=== PATIENT | male | born 1945 | race Caucasian/White ===

== ENCOUNTER → 2019-09-24 09:16 | Outpatient (BNVA) | payer OTHER, SELFPAY | PROVIDERS: Family Provider Internal Medicine; PCP Internal Medicine; Visit Provider Nurse Practitioner | DX: M54.5 Low back pain (principal); Z79.891 Long term (current) use of opiate analgesic | CPT/HCPCS: 99213 ==

== ENCOUNTER → 2019-11-27 09:37 | Outpatient (BNVA) | payer OTHER, SELFPAY | PROVIDERS: Family Provider Internal Medicine; PCP Internal Medicine; Visit Provider Anesthesiology | DX: G89.29 Other chronic pain (principal); M47.26 Other spondylosis with radiculopathy, lumbar region; M96.1 Postlaminectomy syndrome, not elsewhere classified; Z79.891 Long term (current) use of opiate analgesic | CPT/HCPCS: 99213; 99214 ==

== ENCOUNTER → 2020-03-24 09:35 | Outpatient (BNVA) | payer OTHER, SELFPAY | PROVIDERS: Family Provider Internal Medicine; PCP Family Medicine; Visit Provider Nurse Practitioner | DX: G89.29 Other chronic pain (principal); M54.41 Lumbago with sciatica, right side; M54.42 Lumbago with sciatica, left side; M48.062 Spinal stenosis, lumbar region with neurogenic claudication; M54.16 Radiculopathy, lumbar region; M96.1 Postlaminectomy syndrome, not elsewhere classified; Z79.891 Long term (current) use of opiate analgesic | CPT/HCPCS: 99213 ==

== ENCOUNTER 2020-04-21 14:00 | Outpatient (CLI) | payer OTHER, SELFPAY ==
--- NOTE | 2020-04-21 15:00 | USCV_ITS ---
Finn Leigh Age: 74 Gender: M : 1945 Exam Date: 04/21/2020 14:31 Ordering Phys: Ade Putnam MD ([email or web address]) Technologist: Georgette Genao [place] [facility] [place]: LV FUNCTION BP: 130 / 70 HR: 73 Rhythm: Sinus Technical Quality: Fair MEASUREMENTS (Male / Female) Normal Values 2D ECHO LV Diastolic Diameter PLAX 4.0 cm 4.2 - 5.9 / 3.9 - 5.3 cm LV Systolic Diameter PLAX 3.0 cm LV Chamber Size 3.5 cm IVS Diastolic Thickness 1.4 cm 0.6 - 1.0 / 0.6 - 0.9 cm IVS Systolic Thickness 1.4 cm LVPW Diastolic Thickness 1.6 cm 0.6 - 1.0 / 0.6 - 0.9 cm LVPW Systolic Thickness 1.8 cm RV Chamber Size 2.8 cm LVOT Diameter 2.1 cm LV Ejection Fraction 2D Teich 48.7 % LV Ejection Fraction MOD 2C 49.5 % LV Ejection Fraction 2C AL 51.8 % LA Diameter 4.2 cm LA Width 3.7 cm LA Height 3.9 cm RA Width 3.8 cm RA Height 3.7 cm Aorta at Sinotubular Diameter 3.3 cm M-MODE LV Diastolic Diameter MM 4.5 cm 4.2 - 5.9 / 3.9 - 5.3 cm LV Systolic Diameter MM 2.9 cm LV Ejection Fraction MM Teich 64.2 % IVS Diastolic Thickness MM 1.3 cm 0.6 - 1.0 / 0.6 - 0.9 cm IVS Systolic Thickness MM 1.1 cm LVPW Diastolic Thickness MM 1.4 cm 0.6 - 1.0 / 0.6 - 0.9 cm LVPW Systolic Thickness MM 1.8 cm RV Diastolic Diameter MM 1.9 cm Aortic Annulus Diameter 4.0 cm LA Ao Ratio MM 1.0 MV E Point Septal Separation 0.8 cm FINDINGS Left Ventricle Normal left ventricular size, systolic function and wall thickness, with no regional wall motion abnormalities. Left ventricular ejection fraction is estimated at 55-60%. Right Ventricle Normal right ventricular size and systolic function. Right Atrium Normal right atrial size. Left Atrium Normal left atrial size. Mitral Valve Mild mitral annular calcification. Mildly thickened mitral valve. No mitral valve stenosis. Trace mitral valve regurgitation. Aortic Valve Structurally normal trileaflet aortic valve. Tricuspid Valve Structurally normal tricuspid valve. Pulmonic Valve Structurally normal pulmonic valve. Pericardium No pericardial effusion. Aorta Normal size aortic root and proximal ascending aorta. CONCLUSIONS 1. This is a limited echocardiogram. 2. Normal left ventricular size, systolic function and wall thickness, with no regional wall motion abnormalities. Left ventricular ejection fraction is estimated at 55-60%. 3. When compared to previous echocardiogram dated 02/06/2019, left ventricular systolic function has improved. Ade Putnam MD (Electronically Signed) Final Date: 25 April 2020 15:15 S
== END 2020-04-21 14:01 | disposition home or self-care (01) ==
LOC: US 14:01
PROVIDERS: PCP Family Medicine; Visit Provider Internal Medicine Cardiovascular Disease
DX: I50.9 Heart failure, unspecified (principal)
CPT/HCPCS: 93308

== ENCOUNTER → 2020-05-27 09:31 | Outpatient (BNVA) | payer OTHER, SELFPAY | PROVIDERS: Family Provider Internal Medicine; PCP Family Medicine; Visit Provider Anesthesiology | DX: G89.29 Other chronic pain (principal); M47.26 Other spondylosis with radiculopathy, lumbar region; M96.1 Postlaminectomy syndrome, not elsewhere classified; Z79.891 Long term (current) use of opiate analgesic | CPT/HCPCS: 99214 ==

== ENCOUNTER → 2020-07-26 09:53 | Outpatient (BNVA) | payer OTHER, SELFPAY | PROVIDERS: Family Provider Internal Medicine; PCP Family Medicine; Visit Provider Anesthesiology | DX: G89.29 Other chronic pain (principal); M48.062 Spinal stenosis, lumbar region with neurogenic claudication; M47.26 Other spondylosis with radiculopathy, lumbar region; M96.1 Postlaminectomy syndrome, not elsewhere classified; Z79.891 Long term (current) use of opiate analgesic | CPT/HCPCS: 99212; 99214 ==

== ENCOUNTER 2020-08-03 06:00 | Outpatient (RCR) | payer OTHER, SELFPAY | END 2020-08-22 23:59 | disposition home or self-care (01) | LOC: GPT 06:00 | PROVIDERS: PCP Family Medicine; Referring Provider Family Medicine; Visit Provider Family Medicine | DX: M25.512 Pain in left shoulder (principal) | CPT/HCPCS: 97110; 97140; 97162; 97530 ==

== ENCOUNTER 2020-08-23 06:00 | Outpatient (RCR) | payer OTHER, SELFPAY | END 2020-09-22 23:59 | disposition home or self-care (01) | LOC: GPT 06:00 | PROVIDERS: PCP Family Medicine; Referring Provider Family Medicine; Visit Provider Family Medicine | DX: M25.512 Pain in left shoulder (principal) | CPT/HCPCS: 97110; 97140; 97530 ==

== ENCOUNTER → 2020-10-07 08:28 | Outpatient (BNVA) | payer OTHER, SELFPAY | PROVIDERS: PCP Family Medicine; Visit Provider Nurse Practitioner | DX: G89.29 Other chronic pain (principal); M48.062 Spinal stenosis, lumbar region with neurogenic claudication; M47.26 Other spondylosis with radiculopathy, lumbar region; M96.1 Postlaminectomy syndrome, not elsewhere classified; Z79.891 Long term (current) use of opiate analgesic | CPT/HCPCS: 99213 ==

== ENCOUNTER → 2020-12-06 09:39 | Outpatient (BNVA) | payer OTHER, SELFPAY | PROVIDERS: PCP Family Medicine; Visit Provider Nurse Practitioner | DX: G89.29 Other chronic pain (principal); M96.1 Postlaminectomy syndrome, not elsewhere classified; M48.062 Spinal stenosis, lumbar region with neurogenic claudication; M47.26 Other spondylosis with radiculopathy, lumbar region; Z79.891 Long term (current) use of opiate analgesic | CPT/HCPCS: 99213 ==

== ENCOUNTER → 2020-12-26 09:45 | Outpatient (BNVA) | payer OTHER, SELFPAY | PROVIDERS: PCP Family Medicine; Referring Provider Dermatology; Visit Provider Podiatrist Foot & Ankle Surgery | DX: M79.673 Pain in unspecified foot (principal) | CPT/HCPCS: 73630 ==

== ENCOUNTER → 2021-02-10 09:57 | Outpatient (BNVA) | payer OTHER, SELFPAY | PROVIDERS: PCP Family Medicine; Visit Provider Anesthesiology | DX: G89.29 Other chronic pain (principal); M48.062 Spinal stenosis, lumbar region with neurogenic claudication; M47.26 Other spondylosis with radiculopathy, lumbar region; M96.1 Postlaminectomy syndrome, not elsewhere classified; Z87.891 Personal history of nicotine dependence; Z79.891 Long term (current) use of opiate analgesic | CPT/HCPCS: 99213 ==

== ENCOUNTER → 2021-04-06 10:07 | Outpatient (BNVA) | payer OTHER, SELFPAY | PROVIDERS: PCP Family Medicine; Visit Provider Anesthesiology | DX: G89.29 Other chronic pain (principal); M48.062 Spinal stenosis, lumbar region with neurogenic claudication; M47.26 Other spondylosis with radiculopathy, lumbar region; M96.1 Postlaminectomy syndrome, not elsewhere classified; Z79.891 Long term (current) use of opiate analgesic; Z87.891 Personal history of nicotine dependence | CPT/HCPCS: 99213 ==

== ENCOUNTER → 2021-06-16 09:38 | Outpatient (BNVA) | payer OTHER, SELFPAY | PROVIDERS: PCP Family Medicine; Visit Provider Anesthesiology | DX: G89.29 Other chronic pain (principal); M96.1 Postlaminectomy syndrome, not elsewhere classified; M48.062 Spinal stenosis, lumbar region with neurogenic claudication; M54.16 Radiculopathy, lumbar region; Z79.891 Long term (current) use of opiate analgesic | CPT/HCPCS: 99213 ==

== ENCOUNTER → 2021-08-10 09:51 | Outpatient (BNVA) | payer OTHER, SELFPAY | PROVIDERS: PCP Family Medicine; Visit Provider Anesthesiology | DX: G89.29 Other chronic pain (principal); M96.1 Postlaminectomy syndrome, not elsewhere classified; M48.062 Spinal stenosis, lumbar region with neurogenic claudication; M47.26 Other spondylosis with radiculopathy, lumbar region; Z79.891 Long term (current) use of opiate analgesic; Z87.891 Personal history of nicotine dependence | CPT/HCPCS: 99213 ==

== ENCOUNTER → 2021-09-05 15:42 | Outpatient (BNVA) | payer OTHER, SELFPAY | PROVIDERS: PCP Family Medicine; Referring Provider Family Medicine; Visit Provider Orthopaedic Surgery | DX: M47.26 Other spondylosis with radiculopathy, lumbar region (principal); M48.062 Spinal stenosis, lumbar region with neurogenic claudication | CPT/HCPCS: 72110 ==

== ENCOUNTER → 2021-10-06 09:23 | Outpatient (BNVA) | payer OTHER, SELFPAY | PROVIDERS: PCP Family Medicine; Visit Provider Anesthesiology | DX: G89.29 Other chronic pain (principal); M96.1 Postlaminectomy syndrome, not elsewhere classified; M48.062 Spinal stenosis, lumbar region with neurogenic claudication; M47.26 Other spondylosis with radiculopathy, lumbar region; Z79.891 Long term (current) use of opiate analgesic; Z87.891 Personal history of nicotine dependence | CPT/HCPCS: 99213 ==

== ENCOUNTER 2021-12-11 07:47 | Outpatient (CLI) | payer OTHER, SELFPAY ==
--- NOTE | 2021-12-11 07:54 | MR_ITS ---
WS: [id number] MRI LUMBAR SPINE NONCONTRAST HISTORY: M48.062 - Spinal stenosis, lumbar region with bilateral leg pain. COMPARISON: Radiograph 09/05/2021 TECHNIQUE: Sagittal and axial multisequence imaging is submitted. Central shallow disc protrusion at C6-7. Mild anterior wedging of T6. Straightening of the normal lumbar lordosis. L4 anterolisthesis by 2 mm. Prior vertebroplasty at L1. 50% loss of height is stable since 09/05/2021. Disc spaces are narrowed and desiccated throughout. There is a very small amount of marrow edema sada g the superior T12 vertebral body and inferior endplate of T11. No acute fracture in the lumbar spine . Conus terminates normally at L1. T12-L1: Mild osteophytic ridging and disc bulging. Mild facet arthritis. No significant stenosis. L1-L2: Moderate annular disc bulging and osteophytic ridging. Moderate facet arthritis. Combination o f factors contributing to mild central, bilateral subarticular recess and foraminal stenosis. Small d isc protrusion in the LEFT foramen. There is slight contact on both exiting L1 nerve roots by the dis c and osteophyte disease. L2-L3: Marked annular disc bulging asymmetric to the LEFT. Facet joint arthritis and osteophytes with effacement of CSF centrally. Moderate to severe central with bilateral subarticular recess and jaycob inal stenosis. Greater stenosis on the LEFT. There is an additional LEFT foraminal disc protrusion wh ich is broad-based contributing to the stenosis. L3-L4: Diffuse marked annular disc bulging and osteophytic ridging with facet arthritis. High-grade c entral and bilateral subarticular recess stenosis. There is also severe bilateral foraminal stenosis greatest on the RIGHT. There may be disc protrusions and foraminal also. L4-L5: Marked annular disc bulging and osteophytic ridging. Osteophyte and disc encroachment upon the thecal sac. Large posterior laminectomy defect. High-grade central and bilateral subarticular recess and moderate foraminal stenosis. L5-S1: Mild annular disc bulging. Large posterior laminectomy defect. Mild encroachment upon the S1 n erve roots bilaterally. Mild disc contact on the RIGHT exiting L5 nerve root. Bilateral renal cysts. One of the localizers there is an area of decreased signal inseparable from th e superior pole of the RIGHT kidney. This needs to be further evaluated to exclude renal mass. Additi onal atherosclerotic changes within the abdominal aorta. MR/MR lumbar spine wo con* [id number] IMPRESSION: 1. Multilevel central, subarticular and foraminal stenosis due to combination of factors. 2. Moderate to severe central, bilateral subarticular recess and foraminal denny nosis at L2-3, greater stenosis on the LEFT. 3. High-grade central, bilateral subarticular recess stenosis and severe jaycob inal stenosis greatest on the RIGHT at L3-4. 4. High-grade central, bilateral subarticular recess and moderate foraminal st enosis at L4-5. 5. Mild encroachment upon the S1 nerve roots bilaterally due to disc and facet disease. 6. Large laminectomy defects at L4-5 and L5-S1. 7. Mild central, bilateral subarticular recess and foraminal stenosis at L1-2. 8. Recommend renal ultrasound. On one of the localizer images there is a low s ignal mass inseparable from the superior pole RIGHT kidney. Renal neoplasm need s to be excluded. There was a large cyst in this location 2018. This is probabl y a a cyst but should be confirmed by ultrasound evaluation.
== END 2021-12-11 07:48 | disposition home or self-care (01) ==
LOC: RAD 07:51
PROVIDERS: PCP Family Medicine; Visit Provider Orthopaedic Surgery
DX: M48.062 Spinal stenosis, lumbar region with neurogenic claudication (principal); M96.1 Postlaminectomy syndrome, not elsewhere classified; N28.89 Other specified disorders of kidney and ureter
CPT/HCPCS: 72148

== ENCOUNTER → 2022-01-17 | Day surgery (SDC) | payer OTHER, SELFPAY ==
[2022-01-17 09:49] VITALS: BMI 34.5
--- NOTE | 2022-01-17 09:55 | ECG_ITS ---
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 Measurements Intervals [place] Rate: 67 P: 59 HI: 191 QRS: 53 QRSD: 149 T: 55 QT: 413 QTc: 437 Interpretive Statements SINUS RHYTHM RIGHT BUNDLE BRANCH BLOCK [120+ ms QRS DURATION, UPRIGHT V1, 40+ ms S IN I/aVL/V4/V5/V6] Compared to ECG 02/06/2019 11:39:19 Right bundle-branch block now present Myocardial infarct finding no longer present Electronically Signed On 01-17-2022 17:04:08 CDT by Mark Negron M.D. [id number]
--- NOTE | 2022-01-17 14:23 | SUR.PREOP ---
0930 pt here for in person pre-op and not on our schedule for appt today,missed his appt on Saturday01/15/22 pt on eliquis and stated he sees dr rubio for this,dr rubio's office called and stated that pt not seen in almost 2 years, he has missed several appt or cancelled them and does not feel comfortable telling pt when to stop his eliquis prior to surgery on SaturdayJanuary 22. I spoke with Dr Beckford (anesthesiologist)about this pt and wants pt to see Dr Rubio prior to having surgery,informed pt of this and verbalized understanding.
== END ==
PROVIDERS: PCP Family Medicine; Visit Provider Orthopaedic Surgery
DX: Z01.818 Encounter for other preprocedural examination (principal)
CPT/HCPCS: 93005

== ENCOUNTER → 2022-01-24 10:09 | Outpatient (BNVA) | payer OTHER, SELFPAY | PROVIDERS: PCP Family Medicine; Visit Provider Internal Medicine Cardiovascular Disease | DX: Z01.810 Encounter for preprocedural cardiovascular examination (principal); I50.22 Chronic systolic (congestive) heart failure; I45.10 Unspecified right bundle-branch block; I82.409 Acute embolism and thrombosis of unspecified deep veins of unspecified lower extremity; Z87.891 Personal history of nicotine dependence | CPT/HCPCS: 99214 ==

== ENCOUNTER 2022-03-19 06:25 | Day surgery (SDC) | payer OTHER, SELFPAY ==
[2022-03-13 13:43] LABS: Basophils # 0.1 10^3/uL (0.0-0.1); Basophils % 0.9 %; Eosinophils # 0.2 10^3/uL (0.0-0.8); Eosinophils % 1.9 %; Hematocrit 47.8 % (42.0-52.0); Hemoglobin 16.7 g/dL (11.7-16.6); Lymphocytes # 1.5 10^3/uL (0.8-4.8); Mean Corpuscular HGB Conc 34.9 g/dL (30.0-36.0); Mean Corpuscular Hemoglobin 31.7 pg (28.0-34.0); Mean Corpuscular Volume 90.7 fl (80-94); Mean Platelet Volume 10.7 fL (7.4-10.4); Monocytes # 0.6 10^3/uL (0.2-0.9); Monocytes % 6.2 %; Neutrophils # 6.79 10^3/uL (1.8-7.7); Neutrophils % 74.6 %; Nucleated Red Blood Cells % 0 %; Platelet Count 327 10^3/cmm (130-400); Red Blood Count 5.27 10^6/uL (4.1-5.3); White Blood Count 9.1 10^3/uL (4.0-10.0)
--- NOTE | 2022-03-13 14:53 | P.ANESASSM_ITS ---
Pre-Anesthetic Assessment Height/Weight: Height 1.8 m Preop Diagnosis: Failed back syndrome, lumbar stenosis with neurogenic claudication Operation Date: 03/19/22 07:00 Proposed Procedures p [id number] instrumented fusion [id number]/M47.26/M48.062(Not Applicable) - Yoandy Lim, DO Familial anesthetic complications: None Was Beta Santos taken within 24 hours: Yes Was Clonidine taken within 24 hours: N/A Social No alcohol and No tobacco (h/o smoking) Exam alert, oriented x 3 and regular rate & rhythm Airway Submandibular: within normal limits Cervical ROM: within normal limits Mallampati: Class II Dentition: chipped Comments: Comments: Missing all but one tooth Pulmonary Chronic Obstructive Pulmonary Disease CV/HEM Anemia, Arrythmia, Coronary Artery Disease, Congestive Heart Failure, Deep Vein Thrombosis (h/o PE), Hypertension and Myocardial Infarction Date of Service: 04/21/20 Procedure(s): CV echo limited [id number] ?CONCLUSIONS ?1.? This is a limited echocardiogram. ?2.? Normal left ventricular size, systolic function and wall ?thickness, with no regional wall motion abnormalities. Left?ventricular ejection fraction is estimated at 55-60%. ?3.? When compared to previous echocardiogram dated 02/06/2019,?left ventricular systolic function has improved. ?Ade Putnam MD Metabolic Morbid Obesity [facility] [place] Lower Back Pain and Osteoarthritis/DJD Chronic pain/opioid Neuropsych Anxiety and Depression Anesthetic Plan ASA status: 3 Anesthesia: General Other: Discussed A.line and transfusion Risk of > 500 ml blood loss (7ml/kg in children): Yes, adequate IV access and fluids planned Medications/Allergies Home Medications Medication Instructions Recorded Confirmed Last Taken Type albuterol sulfate 2.5 mg INHALATION TID PRN ml 09/17/19 03/13/22 Unknown History ferrous sulfate 325 mg (65 mg 325 mg PO DAILY tab 09/17/19 03/13/22 Unknown History iron) tablet ibuprofen 200 mg tablet 200 - 600 mg PO Q8H PRN tab 09/17/19 03/13/22 Unknown History ipratropium bromide 17 2 puff INHALATION QID 09/17/19 03/13/22 Unknown History mcg/actuation HFA aerosol inhaler (Atrovent HFA) potassium chloride 20 mEq 20 meq PO DAILY tab 09/17/19 03/13/22 Unknown History tablet,extended release spironolactone 25 mg tablet 25 mg PO DAILY tab 09/17/19 03/13/22 Unknown History theophylline 400 mg 400 mg PO Q12H tab 09/17/19 03/13/22 Unknown History tablet,extended release 24 hr acetaminophen 500 mg tablet 1,000 mg PO 6XD PRN tab 09/24/19 03/13/22 Unknown History (Tylenol Extra Strength) cyclobenzaprine 10 mg tablet 10 mg PO TID 90 Days #270 tab 10/06/21 03/13/22 Unknown Rx gabapentin 600 mg tablet 600 mg PO TID 90 Days #270 tab 10/06/21 03/13/22 Unknown Rx oxycodone 10 mg tablet 10 mg PO QID PRN 30 Days #120 tab 10/06/21 03/13/22 Unknown Rx apixaban 5 mg tablet (Eliquis) 2.5 mg PO BID tab 01/24/22 03/13/22 03/13/22 History ascorbic acid (vitamin C) 1,000 mg 1,000 mg PO BID tab 01/24/22 03/13/22 Unknown History tablet cholecalciferol (vitamin D3) 125 125 mcg PO DAILY 01/24/22 03/13/22 Unknown History mcg (5,000 unit) capsule garlic 1,000 mg capsule 1,000 mg PO DAILY 01/24/22 03/13/22 Unknown History vitamin B complex (B 1 tab PO DAILY 01/24/22 03/13/22 Unknown History Complex-Vitamin B12) carvedilol 12.5 mg tablet 12.5 mg PO BID #90 tab 02/15/22 03/13/22 Unknown Rx Bone Growth Stimulator E0748 #1 ea 02/28/22 Unknown Rx Allergies Allergy/AdvReac Type Severity Reaction Status Date / Time morphine Allergy Unknown ALGY-Difficulty Verified 01/17/22 09:33 Breathing insect venom AdvReac Unknown Unknown Verified 01/17/22 09:33 [facility] Anesthesia Medical History (Updated 01/24/22 @ 21:28 by Ade Putnam MD) Anxiety and depression Bladder tumor BPH (benign prostatic hyperplasia) CHF (congestive heart failure) Chronic prostatitis Compression fracture of L1 vertebra with routine healing 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 Mario at [facility] did right foot surgery 07/08/19 S/P kyphoplasty L1 02/28/18 S/P tonsillectomy S/P TURP (transurethral resection of prostate) Status post lumbar spine surgery for decompression of spinal cord 1983 [place], [place]. L4-L5, L5-S1 Status post lung surgery / 1994 Family History Mother Diabetes Father Suicide Denies family history of Anesthesia complication Bleeding disorder Social History Smoking and tobacco status: former smoker Quit status (tobacco): has quit using tobacco Year quit tobacco: 1993 Alcohol intake: never Household members: spouse Marital status: Current occupational status: retired History of recent travel: No Data Anesthesia : 03/13/22 13:26 03/13/22 13:26 Short CBC 03/13/22 Range/Units 13:26 WBC 9.1 (4.0-10.0) 10^3/uL Hgb 16.7 H (11.7-16.6) g/dL Hct 47.8 (42.0-52.0) % MCV 90.7 (80-94) fl Plt Count 327 (130-400) 10^3/cmm Neut % (Auto) 74.6 % Neut # (Auto) 6.79 (1.8-7.7) 10^3/uL BMP 03/13/22 13:26 Sodium Cancelled Potassium Cancelled Chloride Cancelled Carbon Dioxide Cancelled BUN Cancelled Creatinine Cancelled Glucose Cancelled Calcium Cancelled Cardiac Studies: Echocardiogram Limited Views 04/21/20
[2022-03-19 06:46] VITALS: BMI 34.8
--- NOTE | 2022-03-19 06:51 | P.HP_ITS ---
Providers/Chief Complaint Primary Care Provider: Juanis Toledo MD Chief Complaint: lumbar spondylosis History of Present Illness Finn Leigh is a 76 year old male lower back and bilateral leg pain.? He reports previous operative intervention in [place] at L4-5 and L5-S1.? He has been involved in the pain clinic for injections without any long-term benefit.? Patient states he continues to have the same symptoms with no improvement in his pain is progressively getting worse.? He is at a point responding something more definitive done to help his quality of life. Associated symptoms: Denies abdominal pain, chills, fatigue, fever(s), nausea or vomiting Review of Systems General: Reports: 10 or more systems reviewed and unremarkable except in HPI and below Const: Denies: fever(s), chills, body aches, fatigue or change in sleep pattern Eyes: Denies: change in vision ENMT: Denies: throat pain Card: Denies: chest pain or dyspnea on exertion Resp: Denies: dyspnea, productive cough or wheezing GI: Denies: abdominal pain, nausea or vomiting Musc: Reports: extremity swelling, joint pain, joint swelling and limited range of motion; Denies: neck pain, back pain or extremity pain Skin/Breast: Denies: changes in skin color or dry skin Neuro: Reports: numbness in extremities; Denies: headache(s) or difficulty walking Psych: Denies: anxiety Genaro/Lymph: Denies: easy bruising or easy bleeding Medications/Allergies Home Medications Medication Instructions Recorded Confirmed Last Taken Type albuterol sulfate 2.5 mg INHALATION TID PRN ml 09/17/19 03/13/22 Unknown History ferrous sulfate 325 mg (65 mg 325 mg PO DAILY tab 09/17/19 03/13/22 Unknown History iron) tablet ibuprofen 200 mg tablet 200 - 600 mg PO Q8H PRN tab 09/17/19 03/13/22 Unknown History ipratropium bromide 17 2 puff INHALATION QID 09/17/19 03/13/22 Unknown History mcg/actuation HFA aerosol inhaler (Atrovent HFA) potassium chloride 20 mEq 20 meq PO DAILY tab 09/17/19 03/13/22 Unknown History tablet,extended release spironolactone 25 mg tablet 25 mg PO DAILY tab 09/17/19 03/13/22 Unknown History theophylline 400 mg 400 mg PO Q12H tab 09/17/19 03/13/22 Unknown History tablet,extended release 24 hr acetaminophen 500 mg tablet 1,000 mg PO 6XD PRN tab 09/24/19 03/13/22 Unknown History (Tylenol Extra Strength) cyclobenzaprine 10 mg tablet 10 mg PO TID 90 Days #270 tab 10/06/21 03/13/22 Unknown Rx gabapentin 600 mg tablet 600 mg PO TID 90 Days #270 tab 10/06/21 03/13/22 Unknown Rx oxycodone 10 mg tablet 10 mg PO QID PRN 30 Days #120 tab 10/06/21 03/13/22 Unknown Rx apixaban 5 mg tablet (Eliquis) 2.5 mg PO BID tab 01/24/22 03/13/22 03/13/22 History ascorbic acid (vitamin C) 1,000 mg 1,000 mg PO BID tab 01/24/22 03/13/22 Unknown History tablet cholecalciferol (vitamin D3) 125 125 mcg PO DAILY 01/24/22 03/13/22 Unknown History mcg (5,000 unit) capsule garlic 1,000 mg capsule 1,000 mg PO DAILY 01/24/22 03/13/22 Unknown History vitamin B complex (B 1 tab PO DAILY 01/24/22 03/13/22 Unknown History Complex-Vitamin B12) carvedilol 12.5 mg tablet 12.5 mg PO BID #90 tab 02/15/22 03/13/22 Unknown Rx Bone Growth Stimulator E0748 #1 ea 02/28/22 Unknown Rx Allergies Allergy/AdvReac Type Severity Reaction Status Date / Time morphine Allergy Unknown ALGY-Difficulty Verified 03/19/22 06:47 Breathing insect venom AdvReac Unknown Unknown Verified 03/19/22 06:47 PFSH Acute PFSH: Medical History Anxiety and depression Bladder tumor BPH (benign prostatic hyperplasia) CHF (congestive heart failure) Chronic prostatitis Compression fracture of L1 vertebra with routine healing 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 Mario at [facility] did right foot surgery 07/08/19 S/P kyphoplasty L1 02/28/18 S/P tonsillectomy S/P TURP (transurethral resection of prostate) Status post lumbar spine surgery for decompression of spinal cord 1983 [place], [place]. L4-L5, L5-S1 Status post lung surgery / 1994 Family History Mother Diabetes Father Suicide Denies family history of Anesthesia complication Bleeding disorder Social History Smoking and tobacco status: former smoker Quit status (tobacco): has quit using tobacco Year quit tobacco: 1993 Alcohol intake: never Household members: spouse Marital status: Current occupational status: retired History of recent travel: No Vitals/I&O/Wt Weight last 48 hrs Weight 250 lb Physical Exam Narrative: Narrative:?? EXAM NARRATIVE: He is alert and orie nt x3 has good gen eral appearance no rmal normal affect .? He has a slow a ntalgic gait and i s weak with flexio n extension with p ositive tripod sig n. He has difficul t time with planta r flexion or dorsi flexion.? He has p ositive straight l eg raises bilatera lly.? He has palpa ble pain in his prabhakar mbar spine diffuse ly.? He has well-h ealed incision in the midline of his lumbar spine.? Fe et are warm good c ap refill calves a re supple.? Pulses are weak but palp able in both dorsa lis pedis and post erior tibial regio n.? Negative logro ll bilaterally.? D ecreased sensation to light touch di ffusely down both lower extremities. Const:?? COMMON NORMALS: pa tient oriented x3 HENMT:??M COMMON NORMALS: no rmocephalic? HEAD & SCALP: normoceph alic Resp:?? COMMON NORMALS: no rmal respiratory e ffort Cardio:?? COMMON NORMALS: re gular rate and reg ular rhythm? RATE: regular rate? RHY THM: regular rhyth m GI:?? COMMON NORMALS: So ft to palpation? P ALPATION: Yes Soft to palpation :?? COMMON NORMALS: Ye s no CVA tendernes s? BLADDER/KIDNEY EXAM: Yes no CVA t enderness Back/Pelvis:?? COMMON NORMALS: no CVA tenderness Neuro:?? COMMON NORMALS: pa tient oriented x3 and moves all extr emities Psych:?? 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
[2022-03-19 07:14] VITALS: BP 230/120; PULSE 77; RESP 18; TEMP 36.3; O2SAT 92
--- NOTE | 2022-03-19 07:17 | PC.NURSE ---
During preop, pt voiced having still taken Eliquis. BP 230/130 and reported a fall 2 days ago that resulted in nausea and vomiting. Dr Matthew and Dr Lim notified. Surgery will be rescheduled. Pt will be evaluated in ER at this time. Jason at bedside. Pt verbalizes understanding.
--- NOTE | 2022-03-19 07:18 | P.ANESUD_ITS ---
Pre-Anesthetic Update Pre-Anesthetic Assessment: Date of Surgery/Procedure: 03/19/22 Preop Geovanna gnosis: Failed back syndrome, lumbar stenosis with neurogenic claudication Proposed Procedure: Operation Date: 03/19/22 08:20 Proposed Procedures p [id number] instrumented fusion [id number]/M47.26/M48.062(Not Applicable) - Yoandy Lim, DO Any changes to Pre-Anesthetic Assessment?: No Last Intake: Intake Last Liquid Date 03/18/22 Last Liquid Time 18:00 Last Solid Date 03/17/22 Last Solid Time 19:30 Vitals: Temperature 97.4 F L 03/19/22 07:14 Pulse Rate 77 03/19/22 07:14 Respiratory Rate 18 03/19/22 07:14 Blood Pressure 230/120 03/19/22 07:14 Blood Pressure Radha n 156 03/19/22 07:14 Pulse Oximetry 92 03/19/22 07:14 Oxygen Delivery Me thod 03/19/22 07:14 Exam: Pre-Anes Outpt Exam: alert, oriented x 3, clear to auscultation bilaterally and regular rate & rhythm Additional Exam Findings (including area of procedure): Patient BP elevated to level of hypertensive crisis. Alert and oriented, extraocular motors WNL, symmetric shoulder shrug, grimace, tongue protrusion, speech. 4+ strength in flexion right biceps flexion and right hip flexion. 5/5 strength in left UE flexion, left hip flexion, b/l hip flexion/abduction, b/l knee extension/flexion, b/l UE extension, abduction, adduction. Patient fall w/o LOC into wall 2 days ago with subsequent nausea and vomiting. Patient continued his apixaban through last night. Spinal fusion cancelled. Discussed case with Doctor Gooden in ED. Will transfer to ED for evaluation and BP control. Cardiac Studies: Echocardiogram Limited Views 04/21/20
== END 2022-03-19 07:35 | disposition home or self-care (01) ==
LOC: OR 06:27
PROVIDERS: Anesthesiology; PCP Family Medicine; Visit Provider Orthopaedic Surgery
PROC: (CPT 22612; principal; 2022-03-19 08:20)
DX: M48.062 Spinal stenosis, lumbar region with neurogenic claudication (principal); Z53.8 Procedure and treatment not carried out for other reasons; F41.9 Anxiety disorder, unspecified; F32.9 Major depressive disorder, single episode, unspecified; N40.0 Benign prostatic hyperplasia without lower urinary tract symptoms; I11.0 Hypertensive heart disease with heart failure; I50.9 Heart failure, unspecified; J44.9 Chronic obstructive pulmonary disease, unspecified; Z86.718 Personal history of other venous thrombosis and embolism; E66.9 Obesity, unspecified; Z68.34 Body mass index [BMI] 34.0-34.9, adult; Z86.711 Personal history of pulmonary embolism; Z87.891 Personal history of nicotine dependence; I25.2 Old myocardial infarction
CPT/HCPCS: 85025; J1170; J2704; J3010; J3490

== ENCOUNTER 2022-03-19 07:42 | Emergency (ER) | payer OTHER, SELFPAY ==
[2022-03-19 07:44] VITALS: BP 191/104; PULSE 75; RESP 18; TEMP 36.6; O2SAT 93; BMI 34.8
[2022-03-19 08:07] VITALS: BP 187/93; PULSE 74; RESP 20; O2SAT 92
--- NOTE | 2022-03-19 08:09 | CT_ITS ---
WS: [id number] CT HEAD NONCONTRAST HISTORY: fall./trauma/oral anticoagulation TECHNIQUE: Contiguous axial imaging performed through the brain in 2.5 mm imaging. Bone and soft tiss ue windows. Sagittal and coronal reformats reviewed. All CT scans at [facility] use at least one of these dose optimization techniques: automated exposure control; mA and/or kV adjustment per pa tient size (includes targeted exams where dose is matched to clinical indication); or iterative recon struction. DLP: 812.48 mGy.cm COMPARISON: 08/31/2015 No acute intracranial hemorrhage, midline shift or mass effect. Moderate atrophy and small vessel ischemic disease. Small lacunar infarcts are present. Remote lacuna r infarcts in the LEFT caudate head, LEFT thalamus, LEFT leslie radiata and centrum semiovale. Ventricles: Normal size with no hydrocephalus. No inferior displacement of cerebellar tonsils. There is increased density within the posterior and a nterior circulation at the vessels are tortuous and ectatic with dolichocephalic arteries. Calcificat ion in the intracranial carotid arteries. Paranasal sinuses: As visualized are clear. Mastoid air cells: Well pneumatized. Calvarium and scalp: Skull is intact with no soft tissue edema or swelling. CT/CT head wo con* [id number] IMPRESSION: 1. No acute intracranial hemorrhage or edema. 2. 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 3. Dolichocephalic cerebral arteries.
--- NOTE | 2022-03-19 08:10 | XR_ITS ---
WS: [id number] XR chest 1V portable [id number] REASON FOR EXAM: dyspnea/cough FINDINGS: The heart and mediastinum are within normal limits. Calcified granulomatous disease in both hemithoraces. Right apical bullous disease with calcification. Linear parenchymal scarring in the left lung apex with bullous change. No acute pulmonary parenchymal or pleural abnormality. Chest appears unchanged compared to 09/22/2018. XR/XR chest 1V portable [id number] IMPRESSION: Stable abnormal chest with no acute abnormality.
--- NOTE | 2022-03-19 08:10 | ECG_ITS ---
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 Measurements Intervals [place] Rate: 74 P: 55 MN: 186 QRS: 53 QRSD: 152 T: 58 QT: 433 QTc: 482 Interpretive Statements SINUS RHYTHM RIGHT BUNDLE BRANCH BLOCK [120+ ms QRS DURATION, UPRIGHT V1, 40+ ms S IN I/aVL/V4/V5/V6] POSSIBLE ANTERIOR MYOCARDIAL INFARCTION , PROBABLY OLD [30 ms Q WAVE IN V3/V4, OR R < 0.2 mV IN V4] Compared to ECG 01/17/2022 10:01:30 Myocardial infarct finding now present Electronically Signed On 03-19-2022 17:32:28 CDT by Jez Frank M.D. [id number]
[2022-03-19] MEDS: hyDRALAzine 20 mg/mL INJ 1 mL 10 MG IVP (08:18)
[2022-03-19] MEDS: amlodipine 10 mg Tablet PO (08:18)
[2022-03-19] MEDS: metoprolol tartrate 1 mg/1 mL SDV 5 mL 5 MG IVP (08:18)
[2022-03-19] MEDS: carvedilol 12.5 mg Tablet PO (08:18)
[2022-03-19 08:21] LABS: Basophils % 0.4 %; Hematocrit 48.1 % (42.0-52.0); Hemoglobin 16.5 g/dL (11.7-16.6); Lymphocytes # 0.8 10^3/uL (0.8-4.8); Lymphocytes % 16.1 %; Mean Corpuscular HGB Conc 34.3 g/dL (30.0-36.0); Mean Corpuscular Hemoglobin 31.3 pg (28.0-34.0); Mean Corpuscular Volume 91.1 fl (80-94); Mean Platelet Volume 10.4 fL (7.4-10.4); Monocytes # 0.7 10^3/uL (0.2-0.9); Monocytes % 14.3 %; Neutrophils # 3.21 10^3/uL (1.8-7.7); Neutrophils % 68.8 %; Nucleated Red Blood Cells % 0 %; Platelet Count 247 10^3/cmm (130-400); Red Blood Count 5.28 10^6/uL (4.1-5.3); Red Cell Distribution Width 12.1 % (12.1-15.1); White Blood Count 4.7 10^3/uL (4.0-10.0)
[2022-03-19 08:30] VITALS: BP 188/104; PULSE 73; RESP 18; O2SAT 91
[2022-03-19 08:45] LABS: Alanine Aminotransferase 34 U/L (0-41); Albumin Level 4.3 g/dL (3.5-5.2); Alkaline Phosphatase 92 IU/L (40-130); Anion Gap 14.3 (5-19); Aspartate Amino Transferase 39 U/L (0-40); Blood Urea Nitrogen 16 mg/dL (8-23); Carbon Dioxide 28 mmol/L (22-29); Chloride 99 mmol/L (98-107); Globulin 3.2 g/dL (1.3-4.6); Glucose 103 mg/dL (65-115); Osmolality Calculated 285 mOsm/kg (285-295); Potassium 4.3 mmol/L (3.5-5.1); Sodium 137 mmol/L (136-145); Total Bilirubin 0.6 mg/dL (0.15-1.2); Total Protein 7.5 g/dL (6.6-8.7); Troponin(5th) Baseline 11 ng/L (0-15)
[2022-03-19 09:30] VITALS: BP 169/78; PULSE 71; RESP 19; O2SAT 93
[2022-03-19 09:55] VITALS: BP 175/77; O2SAT 94
--- NOTE | 2022-03-19 12:05 | W.ED.GENADLT ---
HPI - General Adult General: Chief complaint: General Medical Stated complaint: BP ELEVATED/ FALL - HIT HEAD Time Seen by Provider: 03/19/22 07:57 Source: patient Mode of arrival: wheelchair Limitations: no limitations History of Present Illness: 76-year-old male scheduled for back surgery this morning when he arrived in the preop. His blood pressure is markedly elevated in addition to those determined he taken his Eliquis last evening. He is complaining of continued back pain he was brought to the ER for evaluation because of the fall on Eliquis having hit his head he did report he had a single episode of vomiting yesterday. He is present with a family member's been awake and alert is a good historian denies any chest pain or shortness of breath does have a mild headache. He not take any of his morning blood pressure medications. Onset (ago): hour(s) Location: head Severity: mild Pain Consistency: constant Relieving factors: none Exacerbating factors: none Associated symptoms: Deny chest pain, confusion, cough, diaphoresis, decreased appetite, dyspnea, fevers/chills, headache(s), malaise, nausea, rash, palpitations, short of breath, syncope, vomiting or weakness Treatments prior to arrival: none Review of Systems Const: Denies: fever(s), chills, fatigue, malaise or diaphoresis ENMT: Denies: throat pain, ear or mastoid pain, nasal discharge or nasal congestion Card: Denies: chest pain, palpitations or syncope Resp: Denies: dyspnea GI: Denies: abdominal pain, nausea or vomiting : Denies: flank pain, difficulty urinating, dysuria, urinary frequency or urinary urgency Skin/Breast: Denies: rash Neuro: Denies: headache(s) or confusion PFS ED PFSH: Medical History Anxiety and depression Bladder tumor BPH (benign prostatic hyperplasia) CHF (congestive heart failure) Chronic prostatitis Compression fracture of L1 vertebra with routine healing 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 Mario at [facility] did right foot surgery 07/08/19 S/P kyphoplasty L1 02/28/18 S/P tonsillectomy S/P TURP (transurethral resection of prostate) Status post lumbar spine surgery for decompression of spinal cord 1983 [place], [place]. L4-L5, L5-S1 Status post lung surgery / 1994 Family History Mother Diabetes Father Suicide Denies family history of Anesthesia complication Bleeding disorder Social History Smoking and tobacco status: former smoker Quit status (tobacco): has quit using tobacco Year quit tobacco: 1993 Alcohol intake: never Household members: spouse Marital status: Current occupational status: retired History of recent travel: No Physical Exam Const: GENERAL APPEARANCE: cooperative and comfortable ORIENTATION/CONSCIOUSNESS: Yes awake, Yes oriented to person, Yes oriented to place and Yes oriented to time HENMT: COMMON NORMALS: normocephalic, atraumatic and hearing grossly normal bilaterally HEAD & SCALP: normocephalic and atraumatic Neck/C-Spine: COMMON NORMALS: no JVD Resp: COMMON NORMALS: normal respiratory effort, No retractions, No use of accessory muscles and clear to auscultation bilaterally AUSCULTATION: clear to auscultation bilaterally Cardio: COMMON NORMALS: no JVD, regular rate, regular rhythm and No murmurs present (Cardio) RATE: regular rate RHYTHM: regular rhythm GI: COMMON NORMALS: Soft to palpation and No hepatosplenomegaly present AUSCULTATION: Yes normoactive bowel sounds PALPATION: Yes Soft to palpation, No Tenderness to palpation present (GI), No Guarding due to palpation present (GI) and Yes No hepatosplenomegaly present Extremity: COMMON NORMALS: normal to inspection, capillary refill normal, no clubbing, cyanosis or edema, no calf tenderness and no pedal edema Neuro: SENSORIUM/ORIENTATION: Yes oriented to person, Yes oriented to place and Yes oriented to time Skin: COMMON NORMALS: no rashes or lesions noted GENERAL SKIN EXAM: no rashes or lesions noted Course Vital Signs: Vital signs: Vital Signs Temperature 97.8 F 03/19/22 07:44 Pulse Rate 71 03/19/22 09:30 Respiratory Rate 19 H 03/19/22 09:30 Blood Pressure 175/77 03/19/22 09:55 Pulse Oximetry 94 03/19/22 09:55 MDM - General Adult Medical Decision Making Blood pressure improved symptoms are improved CT of the head is negative. Discharge patient home continue carvedilol add amlodipine follow-up with primary care follow-up with Dr. Lim to reschedule his back surgery at a later date Medical Records I reviewed the patient's medical records. Lab Data I reviewed the patient's lab results. : 03/19/22 08:10 03/19/22 08:[address] 03/19/22 08:09 IMPRESSION: 1. No acute intracranial hemorrhage or edema. 2. 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 3. Dolichocephalic cerebral arteries. Chest X-Ray 03/19/22 08:10 IMPRESSION: Stable abnormal chest with no acute abnormality. Laboratory Results WBC 4.7 10^3/uL (4.0-10.0) 03/19/22 08:10 RBC 5.28 10^6/uL (4.1-5.3) 03/19/22 08:10 Hgb 16.5 g/dL (11.7-16.6) 03/19/22 08:10 Hct 48.1 % (42.0-52.0) 03/19/22 08:10 MCV 91.1 fl (80-94) 03/19/22 08:10 MCH 31.3 pg (28.0-34.0) 03/19/22 08:10 MCHC 34.3 g/dL (30.0-36.0) 03/19/22 08:10 RDW 12.1 % (12.1-15.1) 03/19/22 08:10 Plt Count 247 10^3/cmm (130-400) 03/19/22 08:10 MPV 10.4 fL (7.4-10.4) 03/19/22 08:10 Neut % (Auto) 68.8 % 03/19/22 08:10 Lymph % (Auto) 16.1 % 03/19/22 08:10 [place] % (Auto) 14.3 % 03/19/22 08:10 Eos % (Auto) 0.0 % 03/19/22 08:10 Baso % (Auto) 0.4 % 03/19/22 08:10 Neut # (Auto) 3.21 10^3/uL (1.8-7.7) 03/19/22 08:10 Lymph # (Auto) 0.8 10^3/uL (0.8-4.8) 03/19/22 08:10 [place] # (Auto) 0.7 10^3/uL (0.2-0.9) 03/19/22 08:10 Eos # (Auto) 0.0 10^3/uL (0.0-0.8) 03/19/22 08:10 Baso # (Auto) 0.0 10^3/uL (0.0-0.1) 03/19/22 08:10 Nucleated RBC % (auto) 0 % 03/19/22 08:10 Nucleated RBCs # 0.0 /100WBC 03/19/22 08:10 Sodium 137 mmol/L (136-145) 03/19/22 08:10 Potassium 4.3 mmol/L (3.5-5.1) 03/19/22 08:10 Chloride 99 mmol/L (98-107) 03/19/22 08:10 Carbon Dioxide 28 mmol/L (22-29) 03/19/22 08:10 Anion Gap 14.3 (5-19) 03/19/22 08:10 BUN 16 mg/dL (8-23) 03/19/22 08:10 Creatinine 0.7 mg/dL (0.7-1.2) 03/19/22 08:10 GFR Calculation Not Reportable 03/19/22 08:10 Glucose 103 mg/dL (65-115) 03/19/22 08:10 Calculated Osmolality 285 mOsm/kg (285-295) 03/19/22 08:10 Calcium 9.0 mg/dL (8.5-10.5) 03/19/22 08:10 Total Bilirubin 0.6 mg/dL (0.15-1.2) 03/19/22 08:10 AST 39 U/L (0-40) 03/19/22 08:10 ALT 34 U/L (0-41) 03/19/22 08:10 Alkaline Phosphatase 92 IU/L (40-130) 03/19/22 08:10 Troponin T Baseline 11 ng/L (0-15) 03/19/22 08:10 Total Protein 7.5 g/dL (6.6-8.7) 03/19/22 08:10 Albumin 4.3 g/dL (3.5-5.2) 03/19/22 08:10 Globulin 3.2 g/dL (1.3-4.6) 03/19/22 08:10 Discharge Plan Discharge Patient Disposition: Home Clinical Impression: Accelerated hypertension, Osteoarthritis of spine with radiculopathy, lumbar region Condition: Stable Prescriptions: New amlodipine 5 mg tablet 5 mg PO DAILY Qty: 30 0RF No Action albuterol sulfate 2.5 mg /3 mL (0.083 %) solution for nebulization 2.5 mg INHALATION TID PRN (Reason: Shortness Of Breath) 0RF Atrovent HFA 17 mcg/actuation HFA aerosol inhaler 2 puff INHALATION QID 0RF ferrous sulfate 325 mg (65 mg iron) tablet 325 mg PO DAILY 0RF ibuprofen 200 mg tablet 200 - 600 mg PO Q8H PRN (Reason: Pain) 0RF theophylline 400 mg tablet extended release 24 hr 400 mg PO Q12H 0RF acetaminophen [Tylenol Extra Strength] 500 mg tablet 1,000 mg PO 6XD PRN (Reason: Pain) 0RF Eliquis 5 mg tablet 2.5 mg PO BID 0RF oxycodone 10 mg tablet 10 mg PO QID PRN (Reason: pain) 30 Days Qty: 120 0RF Rx Instructions: Fill on or after 11/25/21 gabapentin 600 mg tablet 600 mg PO TID 90 Days Qty: 270 0RF cyclobenzaprine 10 mg tablet 10 mg PO TID 90 Days Qty: 270 0RF cholecalciferol (vitamin D3) 125 mcg (5,000 unit) capsule 125 mcg PO DAILY 0RF garlic 1,000 mg capsule 1,000 mg PO DAILY 0RF ascorbic acid (vitamin C) 1,000 mg tablet 1,000 mg PO BID 0RF vitamin B complex [B Complex-Vitamin B12] Tablet 1 tab PO DAILY 0RF carvedilol 12.5 mg tablet 12.5 mg PO BID Qty: 90 3RF Rx Instructions: must administer with a meal/food (DME) Bone Growth Stimulator E0748 See Rx Instructions .Route .MEDSUPPLY Qty: 1 0RF Rx Instructions: As directed Discharge Orders: Discharge ED (Routine); Ordered 03/19/22 Ordered By: Rob Gooden Referrals: Juanis Toledo MD [Primary Care Provider] - Patient Instructions: Opioid Safety Activity Restrictions/Additional Instructions: Follow-up with your doctor recheck blood pressure in the next 2 to 3 days Coding Level of Care Code ED Concaving Machine Operator for Abi Palm
== END 2022-03-19 10:00 | disposition home or self-care (01) ==
PROVIDERS: Emergency Provider Family Medicine; PCP Family Medicine
DX: M47.26 Other spondylosis with radiculopathy, lumbar region (principal); I11.0 Hypertensive heart disease with heart failure; I50.9 Heart failure, unspecified; Z79.01 Long term (current) use of anticoagulants; J44.9 Chronic obstructive pulmonary disease, unspecified; Z85.51 Personal history of malignant neoplasm of bladder; Z87.891 Personal history of nicotine dependence
CPT/HCPCS: 70450; 71045; 80053; 84484; 85025; 93005; 96374; 96375; 99284; J0360; J3490

== ENCOUNTER 2022-06-13 10:01 | Emergency (ER) | payer OTHER, SELFPAY ==
[2022-06-13 10:12] VITALS: BP 175/78; PULSE 83; RESP 14; TEMP 36.7; O2SAT 95; BMI 34.8
[2022-06-13 13:00] LABS: Basophils # 0.1 10^3/uL (0.0-0.1); Basophils % 0.8 %; Eosinophils # 0.8 10^3/uL (0.0-0.8); Eosinophils % 7.4 %; Hemoglobin 14.5 g/dL (11.7-16.6); Lymphocytes # 1.4 10^3/uL (0.8-4.8); Lymphocytes % 14.1 %; Mean Corpuscular Hemoglobin 30.7 pg (28.0-34.0); Mean Platelet Volume 10.1 fL (7.4-10.4); Monocytes # 0.7 10^3/uL (0.2-0.9); Neutrophils % 70.5 %; Nucleated Red Blood Cells % 0 %; Platelet Count 410 10^3/cmm (130-400); Red Blood Count 4.73 10^6/uL (4.1-5.3); Red Cell Distribution Width 12.5 % (12.1-15.1); White Blood Count 10.2 10^3/uL (4.0-10.0)
[2022-06-13 13:07] LABS: INR 1.07 (0.8-1.2)
[2022-06-13 13:08] LABS: Partial Thromboplastin Time 34.2 SECONDS (23.9-36.7)
[2022-06-13 13:11] LABS: Alanine Aminotransferase 15 U/L (0-41); Albumin Level 3.6 g/dL (3.5-5.2); Alkaline Phosphatase 88 U/L (40-130); Anion Gap 14.1 (5-19); Aspartate Amino Transferase 27 U/L (0-40); Blood Urea Nitrogen 9 mg/dL (8-23); Calcium 9.3 mg/dL (8.5-10.5); Carbon Dioxide 31 mmol/L (22-29); Chloride 101 mmol/L (98-107); Globulin 3.7 g/dL (1.3-4.6); Glucose 98 mg/dL (65-115); Osmolality Calculated 293 mOsm/kg (285-295); Potassium 4.1 mmol/L (3.5-5.1); Sodium 142 mmol/L (136-145); Total Bilirubin 0.5 mg/dL (0.15-1.2); Total Protein 7.3 g/dL (6.6-8.7)
--- NOTE | 2022-06-13 15:59 | W.ED.GIBLEED ---
HPI - GI Bleed General: Chief complaint: GI Bleed Stated complaint: Blood in stool for 3 weeks Time Seen by Provider: 06/13/22 15:38 Source: patient Mode of arrival: ambulatory Limitations: no limitations History of Present Illness: This patient presents to our emergency department because of concerns about persistent rectal bleeding. He states the bleeding has been going on approximately 3 weeks. He states he does not really have any hard formed stools but has soft stools mixed with blood and blood on the paper when he wipes. He denies any painful bowel movements that initiated this chain of events. He denies any significant abdominal pain other than some lower abdominal pain at times. He does take a apixaban as well as aspirin daily. He denies any syncope, shortness of breath, chest pain or other constitutional symptoms. No history of bleeding disorders otherwise. MD complaint: blood on toilet paper, blood streaked stool and gross hematochezia Associated symptoms: Denies abdominal pain, chills, fever(s), headache(s), nausea, rash or vomiting Review of Systems Const: Denies: fever(s) or chills Eyes: Denies: change in vision ENMT: Denies: throat pain, odynophagia, hoarseness or change in hearing Card: Denies: chest pain or palpitations Resp: Denies: dyspnea, productive cough or non-productive cough GI: Denies: abdominal pain, nausea, vomiting or hematemesis Musc: Denies: neck pain, back pain, extremity pain or extremity swelling Skin/Breast: Denies: rash, pruritus or erythema Neuro: Denies: headache(s) Psych: Denies: anxiety or depression PFS ED PFSH: Medical History Anxiety and depression Bladder tumor BPH (benign prostatic hyperplasia) CHF (congestive heart failure) Chronic prostatitis Compression fracture of L1 vertebra with routine healing 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 Mario at [facility] did right foot surgery 07/08/19 S/P kyphoplasty L1 02/28/18 S/P tonsillectomy S/P TURP (transurethral resection of prostate) Status post lumbar spine surgery for decompression of spinal cord 1983 [place], [place]. L4-L5, L5-S1 Status post lung surgery / 1994 Family History Mother Diabetes Father Suicide Denies family history of Anesthesia complication Bleeding disorder Social History Smoking and tobacco status: former smoker Quit status (tobacco): has quit using tobacco Year quit tobacco: 1993 Alcohol intake: never Household members: spouse Marital status: Current occupational status: retired History of recent travel: No Physical Exam Narrative: EXAM NARRATIVE: The patient is alert and cooperative and appears to be in no acute distress. Const: COMMON NORMALS: no acute distress and patient oriented x3 GENERAL APPEARANCE: cooperative NUTRITIONAL APPEARANCE: overweight HENMT: COMMON NORMALS: normocephalic, Normal nasal mucous membranes and turbinates present, moist oral mucous membranes and oropharynx normal HEAD & SCALP: normocephalic NOSE: Normal nasal mucous membranes and turbinates present Eye: COMMON NORMALS: Equal, round and reactive pupils present, EOMs intact bilaterally and conjunctivae normal CONJUNCTIVA: Yes conjunctivae normal PUPIL: Yes Equal, round and reactive pupils present Neck/C-Spine: COMMON NORMALS: full ROM, no lymphadenopathy and no JVD Chest: COMMONS NORMALS: normal inspection of the chest and normal palpation of entire chest wall Resp: COMMON NORMALS: normal respiratory effort, No retractions, No use of accessory muscles and clear to auscultation bilaterally AUSCULTATION: clear to auscultation bilaterally Cardio: COMMON NORMALS: no JVD, regular rate, regular rhythm, No murmurs present (Cardio) and Peripheral pulses 2+ throughout RATE: regular rate RHYTHM: regular rhythm PERIPHERAL PULSES: Peripheral pulses 2+ throughout GI: COMMON NORMALS: Normal to inspection, nondistended, normoactive bowel sounds present, Soft to palpation, non-tender and no masses PALPATION: Yes Soft to palpation RECTAL EXAM: Yes normal sphincter tone, Yes heme positive stool and Yes hemorrhoids : COMMON NORMALS: Yes no CVA tenderness BLADDER/KIDNEY EXAM: Yes no CVA tenderness Back/Pelvis: COMMON NORMALS: no CVA tenderness, thoracic and lumbar spine normal to inspection, no thoracic nor lumbar tenderness, thoraco-lumbar ROM normal and straight leg raise negative bilaterally Extremity: COMMON NORMALS: normal to inspection, full ROM, capillary refill normal and no pedal edema Neuro: COMMON NORMALS: patient oriented x3, moves all extremities, no focal motor deficits and no sensory deficits noted Psych: COMMON NORMALS: mental status grossly normal Skin: COMMON NORMALS: no rashes or lesions noted, no wounds and no jaundice GENERAL SKIN EXAM: no rashes or lesions noted Course Reevaluation(s): Reevaluation #1: Was reevaluated. He is stable has not had any bowel movements while in the emergency department. No new or focal findings on reevaluation. Shared his current findings and recommendations for care with him in detail. Certainly no evidence at this time of an ongoing gastrointestinal bleed such as diverticulitis related bleed, etc. he has a friable external hemorrhoid that is likely the source of his bleeding given his current clinical picture. The plan will have him to hold his a apixaban and treat his hemorrhoid topically and follow his clinical course. He apparently has not had any coronary artery stents but did have a very remote pulmonary embolus was related to the hospitalization so given his current clinical picture I think it is reasonable for us to temporarily hold his apixaban. He voiced understanding of our plan of care. Time: 18:40 Vital Signs: Vital signs: Vital Signs Temperature 98.1 F 06/13/22 10:12 Pulse Rate 74 06/13/22 18:30 Respiratory Rate 16 06/13/22 18:30 Blood Pressure 141/72 06/13/22 18:30 Pulse Oximetry 95 06/13/22 18:30 Oxygen Delivery Me thod 06/13/22 17:53 MDM - GI Bleed Medical Decision Making Patient who presented to our emergency department with several weeks of intermittent rectal bleeding without abdominal pain or other findings or history. Is currently on a DOAC and his clinical evaluation revealed a friable external hemorrhoid. CT scan was reassuring and his hemoglobin and other parameters are also reassuring. He is stable to be discharged with topical treatment and holding of his a apixaban in a temporary fashion. He acknowledged and voiced understanding of our discussion. Medical Records I reviewed the patient's medical records. Lab Data I reviewed the patient's lab results. : 06/13/22 12:47 06/13/22 12:47 Radiology Impressions Abdomen/Pelvis CT 06/13/22 16:02 IMPRESSION: 1. No acute findings. 2. Diverticulosis of the distal colon without diverticulitis. 3. Mild dilatation of the bile ducts with no filling defect visualized. If there is clinical evidence for biliary obstruction, this can be further evaluated with MRCP. 4. 5 mm nodule in the left lower lobe measures smaller, consistent with benign etiology. COMMENTS: Consistent with the [employer]'s Incidental Findings Committee white paper (J Am Elsi Radiol 2018): Any incidental renal lesion less than 1 cm or classified as too small to characterize, or any incidental cystic renal lesion characterized as simple-appearing, is likely benign. No follow-up imaging is recommended for these lesions per consensus recommendations based on imaging criteria. Laboratory Results WBC 10.2 10^3/uL (4.0-10.0) H 06/13/22 12:47 RBC 4.73 10^6/uL (4.1-5.3) 06/13/22 12:47 Hgb 14.5 g/dL (11.7-16.6) 06/13/22 12:47 Hct 44.0 % (42.0-52.0) 06/13/22 12:47 MCV 93.0 fl (80-94) 06/13/22 12:47 MCH 30.7 pg (28.0-34.0) 06/13/22 12:47 MCHC 33.0 g/dL (30.0-36.0) 06/13/22 12:47 RDW 12.5 % (12.1-15.1) 06/13/22 12:47 Plt Count 410 10^3/cmm (130-400) H 06/13/22 12:47 MPV 10.1 fL (7.4-10.4) 06/13/22 12:47 Neut % (Auto) 70.5 % 06/13/22 12:47 Lymph % (Auto) 14.1 % 06/13/22 12:47 [place] % (Auto) 7.0 % 06/13/22 12:47 Eos % (Auto) 7.4 % 06/13/22 12:47 Baso % (Auto) 0.8 % 06/13/22 12:47 Neut # (Auto) 7.20 10^3/uL (1.8-7.7) 06/13/22 12:47 Lymph # (Auto) 1.4 10^3/uL (0.8-4.8) 06/13/22 12:47 [place] # (Auto) 0.7 10^3/uL (0.2-0.9) 06/13/22 12:47 Eos # (Auto) 0.8 10^3/uL (0.0-0.8) 06/13/22 12:47 Baso # (Auto) 0.1 10^3/uL (0.0-0.1) 06/13/22 12:47 Nucleated RBC % (auto) 0 % 06/13/22 12:47 Nucleated RBCs # 0.0 /100WBC 06/13/22 12:47 PT 14.20 SECONDS (12.1-14.9) 06/13/22 12:47 INR 1.07 (0.8-1.2) 06/13/22 12:47 APTT 34.2 SECONDS (23.9-36.7) 06/13/22 12:47 Sodium 142 mmol/L (136-145) 06/13/22 12:47 Potassium 4.1 mmol/L (3.5-5.1) 06/13/22 12:47 Chloride 101 mmol/L (98-107) 06/13/22 12:47 Carbon Dioxide 31 mmol/L (22-29) H 06/13/22 12:47 Anion Gap 14.1 (5-19) 06/13/22 12:47 BUN 9 mg/dL (8-23) 06/13/22 12:47 Creatinine 0.6 mg/dL (0.7-1.2) L 06/13/22 12:47 GFR Calculation Not Reportable 06/13/22 12:47 Glucose 98 mg/dL (65-115) 06/13/22 12:47 Calculated Osmolality 293 mOsm/kg (285-295) 06/13/22 12:47 Calcium 9.3 mg/dL (8.5-10.5) 06/13/22 12:47 Total Bilirubin 0.5 mg/dL (0.15-1.2) 06/13/22 12:47 AST 27 U/L (0-40) 06/13/22 12:47 ALT 15 U/L (0-41) 06/13/22 12:47 Alkaline Phosphatase 88 U/L (40-130) 06/13/22 12:47 Total Protein 7.3 g/dL (6.6-8.7) 06/13/22 12:47 Albumin 3.6 g/dL (3.5-5.2) 06/13/22 12:47 Globulin 3.7 g/dL (1.3-4.6) 06/13/22 12:47 Blood Type A Negative 06/13/22 13:01 Rho(D) Type Negative 06/13/22 13:01 Antibody Screen Negative 06/13/22 13:01 Discharge Plan Discharge Patient Disposition: Home Clinical Impression: Bleeding external hemorrhoids Condition: Stable Prescriptions: New Anusol-HC 2.5 % cream with perineal applicator 1 applic [place] BID PRN (Reason: hemorrhoids) Qty: 30 1RF No Action albuterol sulfate 2.5 mg /3 mL (0.083 %) solution for nebulization 2.5 mg INHALATION TID PRN (Reason: Shortness Of Breath) Atrovent HFA 17 mcg/actuation HFA aerosol inhaler 2 puff INHALATION QID ferrous sulfate 325 mg (65 mg iron) tablet 325 mg PO DAILY ibuprofen 200 mg tablet 200 - 600 mg PO Q8H PRN (Reason: Pain) theophylline 400 mg tablet extended release 24 hr 400 mg PO Q12H acetaminophen [Tylenol Extra Strength] 500 mg tablet 1,000 mg PO 6XD PRN (Reason: Pain) Eliquis 5 mg tablet 2.5 mg PO BID oxycodone 10 mg tablet 10 mg PO QID PRN (Reason: pain) 30 Days Qty: 120 0RF Rx Instructions: Fill on or after 11/25/21 gabapentin 600 mg tablet 600 mg PO TID 90 Days Qty: 270 0RF cyclobenzaprine 10 mg tablet 10 mg PO TID 90 Days Qty: 270 0RF cholecalciferol (vitamin D3) 125 mcg (5,000 unit) capsule 125 mcg PO DAILY garlic 1,000 mg capsule 1,000 mg PO DAILY ascorbic acid (vitamin C) 1,000 mg tablet 1,000 mg PO BID vitamin B complex [B Complex-Vitamin B12] Tablet 1 tab PO DAILY carvedilol 12.5 mg tablet 12.5 mg PO BID Qty: 90 3RF Rx Instructions: must administer with a meal/food (DME) Bone Growth Stimulator E0748 See Rx Instructions .Route .MEDSUPPLY Qty: 1 0RF Rx Instructions: As directed amlodipine 5 mg tablet 5 mg PO DAILY Qty: 30 0RF Discharge Orders: Discharge ED (Routine); Ordered 06/13/22 Ordered By: Christopher Cantrell Referrals: Juanis Toledo MD [Primary Care Provider] - 7-10 days Discharge Diet: GI Soft Discharge Activity: Resume usual activity Patient Instructions: Opioid Safety, Pain Management Activity Restrictions/Additional Instructions: Just continue your a apixaban until you see your primary care doctor. Sinew with at least 2 quarts of fluid intake daily and continue on your soft diet. Should you develop increasing bleeding, chest pain, shortness of breath, abdominal pain return to this or the nearest emergency department otherwise see your doctor in 7 to 10 days. Coding Level of Care Code ED Audio/Visual Operator for Abi Fwd Exam Comprehensive
[2022-06-13 16:00] VITALS: BP 178/86; PULSE 78; RESP 16; O2SAT 96
--- NOTE | 2022-06-13 16:02 | CTR_ITS ---
PROCEDURE INFORMATION: Exam: CT Abdomen And Pelvis With Contrast Exam date and time: 06/13/2022 4:23 PM Age: 76 years old Clinical indication: Other: Rectal bleeding TECHNIQUE: Imaging protocol: Computed tomography of the abdomen and pelvis with contrast. Radiation optimization: All CT scans at this facility use at least one of these dose optimization techniques: automated exposure control; mA and/or kV adjustment per patient size (includes targeted exams where dose is matched to clinical indication); or iterative reconstruction. Contrast material: OMNI 350; Contrast volume: 80 ml; Contrast route: INTRAVENOUS (IV); COMPARISON: CT Abdomen/Pelvis w IV* [id number] 09/22/2018 7:47 PM RADIATION DOSE METRICS: Total DLP (mGy-cm): 1029.45 FINDINGS: Lungs: 5 mm left lower lobe nodule. Emphysema. Heart: Coronary artery calcifications. Liver: Normal. No mass. Gallbladder and bile ducts: The gallbladder is contracted. Mild dilatation of the common bile duct measuring 10 mm. No intraductal filling defect identified. Pancreas: Atrophic pancreas. Spleen: Normal. No splenomegaly. Adrenal glands: Normal. No mass. Kidneys and ureters: Bilateral renal cysts, the largest measuring 9.2 cm on the right, with Hounsfield units less than 20. Additional hypodensities in both kidneys are too small to characterize but are most likely cysts. No follow-up imaging is recommended. Stomach and bowel: Diverticulosis of the distal colon without diverticulitis. Mild wall thickening in the distal sigmoid colon and rectum is most likely related to nondistention. The stomach and small bowel are unremarkable. No obstruction. Appendix: The appendix is visualized and is normal. Intraperitoneal space: Unremarkable. No free air. No significant fluid collection. Vasculature: Arterial calcifications. No aneurysm. Lymph nodes: Unremarkable. No enlarged lymph nodes. Urinary bladder: Unremarkable as visualized. Reproductive: Unremarkable as visualized. Bones/joints: Old right rib fractures. Chronic L1 compression fracture with kyphoplasty cement. No acute fracture. Multiple Schmorl's nodes. L4-L5 decompressive laminectomies. Soft tissues: Tiny fat containing umbilical hernia. CT/CT abdomen pelvis w con* [id number] IMPRESSION: 1. No acute findings. 2. Diverticulosis of the distal colon without diverticulitis. 3. Mild dilatation of the bile ducts with no filling defect visualized. If there is clinical evidence for biliary obstruction, this can be further evaluated with MRCP. 4. 5 mm nodule in the left lower lobe measures smaller, consistent with benign etiology. COMMENTS: Consistent with the [employer]'s Incidental Findings Committee white paper (J Am Elsi Radiol 2018): Any incidental renal lesion less than 1 cm or classified as too small to characterize, or any incidental cystic renal lesion characterized as simple-appearing, is likely benign. No follow-up imaging is recommended for these lesions per consensus recommendations based on imaging criteria.
[2022-06-13 16:34] VITALS: BP 151/79
[2022-06-13] MEDS: iohexol 350 mg/mL 100 mL Btl IV (16:34)
[2022-06-13 17:53] VITALS: BP 140/76; PULSE 88; RESP 16; O2SAT 95
[2022-06-13 18:30] VITALS: BP 141/72; PULSE 74; RESP 16; O2SAT 95
[2022-06-13 19:39] VITALS: BP 165/88; PULSE 78; RESP 16; O2SAT 96
== END 2022-06-13 19:43 | disposition home or self-care (01) ==
PROVIDERS: Emergency Provider Emergency Medicine; PCP Family Medicine
DX: K64.4 Residual hemorrhoidal skin tags (principal); I50.9 Heart failure, unspecified; J44.9 Chronic obstructive pulmonary disease, unspecified; E66.9 Obesity, unspecified; Z68.34 Body mass index [BMI] 34.0-34.9, adult; Z79.01 Long term (current) use of anticoagulants; Z87.891 Personal history of nicotine dependence
CPT/HCPCS: 74177; 80053; 85025; 85610; 85730; 86850; 86900; 99284; Q9967

== ENCOUNTER → 2022-07-25 10:35 | Outpatient (BNVA) | payer OTHER, SELFPAY | PROVIDERS: PCP Family Medicine; Visit Provider Internal Medicine Cardiovascular Disease | DX: I50.22 Chronic systolic (congestive) heart failure (principal); I82.409 Acute embolism and thrombosis of unspecified deep veins of unspecified lower extremity; Z87.891 Personal history of nicotine dependence | CPT/HCPCS: 99214 ==

== ENCOUNTER → 2023-04-24 11:05 | Outpatient (BNVA) | payer OTHER, SELFPAY | PROVIDERS: PCP Family Medicine; Visit Provider Internal Medicine Cardiovascular Disease | DX: I50.22 Chronic systolic (congestive) heart failure (principal); I45.10 Unspecified right bundle-branch block; I26.99 Other pulmonary embolism without acute cor pulmonale; J43.9 Emphysema, unspecified | CPT/HCPCS: 99214 ==

== ENCOUNTER 2023-06-11 12:09 | Outpatient (CLI) | payer OTHER, SELFPAY ==
--- NOTE | 2023-06-11 12:17 | CT_ITS ---
WS: [id number] CT HEAD TECHNIQUE: Noncontrast CT of the head obtained from the skullbase to the vertex. CLINICAL INFORMATION: FALL/PT ON BLOOD THINNER COMPARISON: 03/19/2022 DLP: 1103.[address] scans at [facility] use at least one of these dose optimization techniques: automated e xposure control; mA and/or kV adjustment per patient size (includes targeted exams where dose is matc hed to clinical indication); or iterative reconstruction. FINDINGS: No evidence of intracranial hemorrhage or mass effect. Ventricular system and basal cisterns are blackwell nt. Moderate small vessel changes with moderate parenchymal volume loss. No extra-axial fluid collect ions. No evidence of mass or mass effect. Vascular calcification. Tiny chronic lacunar infarcts in th e LEFT caudate Paranasal sinuses and mastoid air cells are well aerated. .Normal visualized soft tissues. IMPRESSION: 1. No evidence of intracranial hemorrhage or mass effect. 2. Moderate small vessel changes with moderate parenchymal volume loss. 3. Vascular calcification. 4. No acute intracranial findings.
--- NOTE | 2023-06-11 12:17 | CT_ITS ---
WS: [id number] CT ABDOMEN PELVIS TECHNIQUE: Noncontrast CT of the abdomen and contrast-enhanced CT of the abdomen and pelvis with remigio nal and sagittal reformatted images. CLINICAL INFORMATION: PREVIOUS FALL MARCH 2023/ELEVATED LIVER ENZYMES COMPARISON: CT 06/13/2022 and 09/22/2018 DLP: 2452.[address] scans at [facility] use at least one of these dose optimization techniques: automated e xposure control; mA and/or kV adjustment per patient size (includes targeted exams where dose is matc hed to clinical indication); or iterative reconstruction. FINDINGS: Stable 5 mm nodule LEFT lower lobe. Diffuse fatty filtration of the liver. Mild intrahepatic biliary ductal dilatation similar to 06/13/2022. Prominence of the common bile duct is unchanged in appearance . Gallbladder is contracted similar to previous. Normal GE junction. Fatty atrophy of the pancreas. Splenic artery calcification. Adrenal glands are n ormal. Bilateral renal cysts largest on the RIGHT measuring 10 x 8 cm similar to previous. Celiac and SMA are patent. Normal caliber abdominal aorta. Aortic calcification. Normal renal parench ymal enhancement. No hydronephrosis. Adrenal glands are normal. Tiny fat-containing umbilical hernia. Sigmoid diverticulosis. No evidence of high-grade small or large bowel obstruction. Prior vertebropl asty changes L1. IMPRESSION: 1. Mild diffuse fatty filtration of the liver. This is similar to previous. 2. Mild intrahepatic biliary ductal dilatation appears similar to the prior studies. Gallbladder dinah ears contracted. 3. Prominent common bile duct is unchanged. This can be further evaluated with MRCP if concern for b iliary obstruction. 4. Sigmoid diverticulosis. No evidence of acute or reticulitis. 5. Multicystic kidneys bilaterally largest in the RIGHT upper pole measuring 10 x 8 cm. 6. Stable 5 mm nodule LEFT lower lobe.
[2023-06-11] MEDS: iohexol 350 mg/mL 500 mL Btl (per mL) IV (13:12)
== END 2023-06-11 12:10 | disposition home or self-care (01) ==
PROVIDERS: PCP Family Medicine; Visit Provider Family Medicine
DX: Z91.81 History of falling (principal); Z79.01 Long term (current) use of anticoagulants; R74.01 Elevation of levels of liver transaminase levels; I67.2 Cerebral atherosclerosis; K76.0 Fatty (change of) liver, not elsewhere classified; K57.30 Diverticulosis of large intestine without perforation or abscess without bleeding; Q61.02 Congenital multiple renal cysts; R91.1 Solitary pulmonary nodule
CPT/HCPCS: 70450; 74178; Q9967

== ENCOUNTER 2023-08-20 12:00 | Outpatient (CLI) | payer OTHER, SELFPAY ==
--- NOTE | 2023-08-20 12:12 | US_ITS ---
WS: [id number] RENAL ULTRASOUND HISTORY: MULTIPLE KIDNEY CYST NÉSTOR KIDNEYS COMPARISON: 06/11/2023 TECHNIQUE: 2-D and color Doppler imaging of the kidney submitted. Right kidney: 12.7 cm x 5.7 cm x 4.4 cm. Cortex: 1.5 cm Normal size kidney. Simple cyst superior pole measures 9.4 x 8.6 x 8.2 cm. No increase in size since the CT of 06/11/2023. There are additional smaller cortical cyst. No solid mass or hydronephrosis. Left kidney: 11.2 cm x 5.3 cm x 3.8 cm. Cortex: 1.3 cm Cortical cyst lower pole measures 4.6 x 3.8 x 3.1 cm. No solid mass or obstruction. Aorta: Normal. Urinary Bladder: Nondistended. IMPRESSION: 1. Bilateral renal cysts as described above. No solid mass. 2. No renal obstruction.
== END 2023-08-20 12:01 | disposition home or self-care (01) ==
LOC: RAD 12:00
PROVIDERS: PCP Family Medicine; Visit Provider Family Medicine
DX: N28.1 Cyst of kidney, acquired (principal)
CPT/HCPCS: 76770

== ENCOUNTER → 2023-12-04 10:57 | Outpatient (BNVA) | payer OTHER, SELFPAY | PROVIDERS: PCP Family Medicine; Referring Provider Family Medicine; Visit Provider Internal Medicine Cardiovascular Disease | DX: I45.10 Unspecified right bundle-branch block (principal); I26.99 Other pulmonary embolism without acute cor pulmonale; I50.22 Chronic systolic (congestive) heart failure; M47.26 Other spondylosis with radiculopathy, lumbar region; J43.9 Emphysema, unspecified; I42.9 Cardiomyopathy, unspecified; C67.5 Malignant neoplasm of bladder neck; Z87.891 Personal history of nicotine dependence | CPT/HCPCS: 99214 ==

== ENCOUNTER 2024-03-12 11:21 | Inpatient (IN) | payer OTHER, SELFPAY ==
[2024-03-12 11:43] VITALS: BP 180/108; PULSE 107; RESP 24; TEMP 36.6; O2SAT 95; BMI 29.2
--- NOTE | 2024-03-12 12:18 | XRR_ITS ---
PROCEDURE INFORMATION: Exam: XR Left Knee Exam date and time: 03/12/2024 12:36 PM Age: 78 years old Clinical indication: Injury or trauma; Fall; Blunt trauma; Knee; Left TECHNIQUE: Imaging protocol: Radiologic exam of the left knee. Views: 3 views. COMPARISON: CR XR tibia fibula LT 2V [id number] 03/12/2024 12:34 PM FINDINGS: Bones/joints: Negative for acute bony abnormality Soft tissues: Normal. XR/XR knee LT 3V* [id number] IMPRESSION: No acute findings.
--- NOTE | 2024-03-12 12:18 | XRR_ITS ---
PROCEDURE INFORMATION: Exam: XR Left Foot Exam date and time: 03/12/2024 12:32 PM Age: 78 years old Clinical indication: Injury or trauma; Fall; Blunt trauma; Foot; Left TECHNIQUE: Imaging protocol: Radiologic exam of the left foot. Views: 3 or more views. COMPARISON: [place] [id number] ORTH 12/26/2020 9:51 AM FINDINGS: Bones/joints: Negative for acute bony abnormality Soft tissues: Soft tissue edema dorsal foot. XR/XR foot LT min 3V* [id number] IMPRESSION: 1. Dorsal foot soft tissue edema 2. Negative for acute bony abnormality
--- NOTE | 2024-03-12 12:18 | XRR_ITS ---
PROCEDURE INFORMATION: Exam: XR Left Tibia and Fibula Exam date and time: 03/12/2024 12:34 PM Age: 78 years old Clinical indication: Injury or trauma; Fall; Blunt trauma; Lower leg; Left TECHNIQUE: Imaging protocol: Radiologic exam of the left tibia and fibula. Views: 2 views. COMPARISON: CR XR foot LT min 3V* [id number] 03/12/2024 12:32 PM FINDINGS: Bones/joints: There is a bone lucency involving the proximal lateral shaft of the tibia measuring 18 mm x 5 mm. This finding is suspicious for a subacute bone injury , or some type of lytic bone injury. No additional findings are seen corresponding to this lesion. Soft tissues: Soft tissue edema is seen in the lateral ankle XR/XR tibia fibula LT 2V [id number] IMPRESSION: 1. Nonspecific lytic appearing bone lesion in the proximal shaft of the tibia 2. Otherwise negative examination.
--- NOTE | 2024-03-12 12:19 | USCV_ITS ---
Finn Leigh Age: 78 Gender: M : 1945 Exam Date: 03/12/2024 12:44 Ordering Phys: Rob Gooden DO Technologist: TREVOR Exam Location: [facility] [place] Indication: PAIN HISTORY: Lower extremity pain. PROCEDURES: Venous duplex imaging was performed in only the left lower extremity. The following venous structures were evaluated: common femoral vein, profunda vein, proximal portion of the greater saphenous vein, superficial femoral vein, and the popliteal vein. In addition, the posterior tibial and peroneal trunk were evaluated. Serial compression, augmentation maneuvers, and spectral Doppler flow evaluation were performed. FINDINGS: No evidence of DVT seen in any vessel visualized at this time. CONCLUSIONS No evidence of left lower extremity DVT. Bassam Nicole MD (Electronically Signed) Final Date: 12 March 2024 15:20 S
--- NOTE | 2024-03-12 12:20 | ED_ITS ---
HPI - Fall 2 General: Chief Complaint: Fall Stated Complaint: fall, left leg pain Time Seen by Provider: 03/12/24 12:04 Source: patient Mode of arrival: ambulatory History of Present Illness: 78-year-old male presents emergency room had 2 falls at home this morning. He recently had a cystoscopy he went to get out of bed this morning his right leg felt weak and he stumbled and fell. He tried to get up and fell again. He is complaining of significant swelling in his left lower leg and pain in the left lower leg from the knee distally into the foot. He still is able to feel it and can move his ankle and foot. He did not strike his head he did not lose consciousness he denies any other injury. 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 L4-L5, L5-S1 S/P foot surgery, right Dr. Mario at [facility] did right foot surgery 07/08/19 Status post lung surgery / 1994 S/P tonsillectomy S/P kyphoplasty L1 02/28/18 Hx of cataract removal with insertion of prosthetic lens 04/05/09 Family History Mother Diabetes Father Suicide Denies family history of Anesthesia complication Bleeding disorder Social History Smoking and tobacco/nicotine status: former use of tobacco/nicotine Quit status (tobacco/nicotine): has quit using Year quit tobacco: 1993 Alcohol intake: never Substance/Drug Use: never Household members: spouse Marital status: Current occupational status: retired Course 2 Vital Signs: Vital signs: Vital Signs Temperature 97.9 F 03/12/24 11:43 Pulse Rate 101 H 03/12/24 15:02 Respiratory Rate 24 H 03/12/24 11:43 Blood Pressure 180/108 03/12/24 11:43 Pulse Oximetry 90 03/12/24 15:02 Oxygen Delivery Me thod Room Air 03/12/24 15:02 MDM - Fall Medical Decision Making X-ray of the knee and tib-fib and foot are all negative. There is redness that is warm to the touch and tender his white count is elevated with a left shift. Will admit and start on IV antibiotics. Venous duplex was negative as well. Lab Data 03/12/24 12:33 03/12/24 12:33 Radiology Impressions Foot X-Ray 03/12/24 12:18 IMPRESSION: 1. Dorsal foot soft tissue edema 2. Negative for acute bony abnormality Knee X-Ray 03/12/24 12:18 IMPRESSION: No acute findings. Tibia/Fibula X-Ray 03/12/24 12:18 IMPRESSION: 1. Nonspecific lytic appearing bone lesion in the proximal shaft of the tibia 2. Otherwise negative examination. Ribs X-Ray 03/12/24 14:42 IMPRESSION: 1. Negative for acute bright rib bony abnormality. . 2. There is compression fracture with kyphoplasty L1 vertebral body . 3. Chronic deformity right 8th posterior rib Laboratory Results WBC 16.36 10^3/uL (3.29-11.43) H 03/12/24 12:33 RBC 4.51 10^6/uL (3.85-5.65) 03/12/24 12:33 Hgb 13.80 g/dL (11.27-16.99) 03/12/24 12:33 Hct 41.6 % (37-53) 03/12/24 12:33 MCV 92.2 fl (82-101) 03/12/24 12:33 MCH 30.6 pg (27-33) 03/12/24 12:33 MCHC 33.2 g/dL (30-55) 03/12/24 12:33 RDW 13.0 % (12.1-15.1) 03/12/24 12:33 Plt Count 479 10^3/cmm (157-399) H 03/12/24 12:33 MPV 9.5 fL (7.4-10.4) 03/12/24 12:33 Neut % (Auto) 85.9 % 03/12/24 12:33 Lymph % (Auto) 5.8 % 03/12/24 12:33 Gaines % (Auto) 6.1 % 03/12/24 12:33 Eos % (Auto) 1.1 % 03/12/24 12:33 Baso % (Auto) 0.6 % 03/12/24 12:33 Neut # (Auto) 14.07 10^3/uL (1.8-7.7) H 03/12/24 12:33 Lymph # (Auto) 1.0 10^3/uL (0.8-4.8) 03/12/24 12:33 Gaines # (Auto) 1.0 10^3/uL (0.2-0.9) H 03/12/24 12:33 Eos # (Auto) 0.2 10^3/uL (0.0-0.8) 03/12/24 12:33 Baso # (Auto) 0.1 10^3/uL (0.0-0.1) 03/12/24 12:33 Nucleated RBC % (auto) 0 % 03/12/24 12:33 Nucleated RBCs # 0.0 /100WBC 03/12/24 12:33 Sodium 138 mmol/L (136-145) 03/12/24 12:33 Potassium 3.6 mmol/L (3.5-5.1) 03/12/24 12:33 Chloride 100 mmol/L (98-107) 03/12/24 12:33 Carbon Dioxide 28 mmol/L (22-29) 03/12/24 12:33 Anion Gap 13.6 (5-19) 03/12/24 12:33 BUN 13 mg/dL (8-23) 03/12/24 12:33 Creatinine 0.7 mg/dL (0.7-1.2) 03/12/24 12:33 GFR Calculation Not Reportable 03/12/24 12:33 Glucose 127 mg/dL (65-115) H 03/12/24 12:33 Calculated Osmolality 288 mOsm/kg (285-295) 03/12/24 12:33 Lactic Acid 1.0 mmol/L (0.5-2.2) 03/12/24 15:03 Calcium 8.9 mg/dL (8.5-10.5) 03/12/24 12:33 Total Bilirubin 0.6 mg/dL (0.15-1.2) 03/12/24 12:33 AST 30 U/L (0-40) 03/12/24 12:33 ALT 27 U/L (0-41) 03/12/24 12:33 Alkaline Phosphatase 150 U/L (40-130) H 03/12/24 12:33 Total Protein 7.9 g/dL (6.6-8.7) 03/12/24 12:33 Albumin 3.4 g/dL (3.5-5.2) L 03/12/24 12:33 Globulin 4.5 g/dL (1.3-4.6) 03/12/24 12:33 All radiology interpretation(s) finalized by discharge Discharge Plan Discharge Patient Disposition: Admitted As Inpatient Admit Provider: Ed Brush Clinical Impression: Cellulitis of left lower leg Condition: Stable Coding Level of Care Code ED Notched Blade Loader for Abi Palm
[2024-03-12 12:37] LABS: Basophils # 0.1 10^3/uL (0.0-0.1); Basophils % 0.6 %; Eosinophils # 0.2 10^3/uL (0.0-0.8); Eosinophils % 1.1 %; Hematocrit 41.6 % (37-53); Lymphocytes % 5.8 %; Mean Corpuscular HGB Conc 33.2 g/dL (30-55); Mean Corpuscular Hemoglobin 30.6 pg (27-33); Mean Corpuscular Volume 92.2 fl (82-101); Mean Platelet Volume 9.5 fL (7.4-10.4); Monocytes % 6.1 %; Neutrophils # 14.07 10^3/uL (1.8-7.7); Neutrophils % 85.9 %; Nucleated Red Blood Cells % 0 %; Platelet Count 479 10^3/cmm (157-399); Red Blood Count 4.51 10^6/uL (3.85-5.65); White Blood Count 16.36 10^3/uL (3.29-11.43)
--- NOTE | 2024-03-12 12:37 | PC.PHAR ---
PT IS [facility] FOR MED LIST 03/12/24 12:37PM
[2024-03-12] MEDS: oxyCODONE 5 mg IR Tab/Cap 10 MG PO (12:52)
[2024-03-12 12:55] LABS: Alanine Aminotransferase 27 U/L (0-41); Albumin Level 3.4 g/dL (3.5-5.2); Alkaline Phosphatase 150 U/L (40-130); Anion Gap 13.6 (5-19); Aspartate Amino Transferase 30 U/L (0-40); Blood Urea Nitrogen 13 mg/dL (8-23); Calcium 8.9 mg/dL (8.5-10.5); Carbon Dioxide 28 mmol/L (22-29); Chloride 100 mmol/L (98-107); Creatinine Clr Calc Pharmacy 92.5351; Globulin 4.5 g/dL (1.3-4.6); Glucose 127 mg/dL (65-115); Osmolality Calculated 288 mOsm/kg (285-295); Potassium 3.6 mmol/L (3.5-5.1); Sodium 138 mmol/L (136-145); Total Bilirubin 0.6 mg/dL (0.15-1.2); Total Protein 7.9 g/dL (6.6-8.7)
--- NOTE | 2024-03-12 14:42 | XRR_ITS ---
PROCEDURE INFORMATION: Exam: XR Right Ribs with PA Chest Exam date and time: 03/12/2024 2:48 PM Age: 78 years old Clinical indication: Chest wall pain; Right TECHNIQUE: Imaging protocol: Radiologic exam of the right ribs with PA chest. Views: 3 views COMPARISON: CR XR chest 1V portable [id number] 03/19/2022 8:28 AM FINDINGS: Lungs: There is nonspecific fibrotic densities right upper lobe. No consolidation. Pleural spaces: Unremarkable. No pleural effusion. No pneumothorax. Heart/Mediastinum: Unremarkable. No cardiomegaly. Bones/joints: There is a compression fracture with kyphoplasty at the L1 vertebral body generalized osteopenia and osteoarthritis is seen in the dorsolumbar spine. There is a chronic bone deformity seen in the right 8th posterior rib XR/XR ribs RT mn 3V w CXR1V [id number] IMPRESSION: 1. Negative for acute bright rib bony abnormality. . 2. There is compression fracture with kyphoplasty L1 vertebral body . 3. Chronic deformity right 8th posterior rib
[2024-03-12 15:02] VITALS: PULSE 101; O2SAT 90
[2024-03-12] MEDS: vancomycin 1,000 MG in sodium chloride 0.9% 250 ML 250 MG IV (15:29)
[2024-03-12 15:52] VITALS: BMI 30.3
--- NOTE | 2024-03-12 16:17 | PM.HP ---
Providers/Chief Complaint Admitting Physician: Ed Brush MD Primary Care Provider: Juanis Toledo MD Chief Complaint: fall, left leg pain History of Present Illness Finn Leigh is a 78 year old male who carries history of bladder cancer status post recent bladder surgery 8 days ago presented to hospital with worsening of left leg pain and swelling. Patient is stating that he has not noticed nausea vomiting rigors chills or fever but experiencing excruciating pain in left leg. He has history of preserved ejection fraction, no previous history of gout, patient is independent lives with his family In the ER he was diagnosed with significant leukocytosis with tachypnea tachycardia however he is afebrile lactic acid is normal He is not septic I requested uric acid to rule out gout Patient is stating that he has had multiple falls in the past as well L1 compression fracture Review of Systems Const: Denies: fever(s) Eyes: Denies: change in vision ENMT: Denies: throat pain Card: Denies: chest pain Resp: Denies: dyspnea GI: Denies: abdominal pain : Denies: flank pain Medications/Allergies Home Medications Medication Instructions Recorded Confirmed Last Taken Type ibuprofen 200 mg tablet 200 - 600 mg PO Q8H PRN Pain 09/17/19 03/12/24 03/17/22 History ipratropium bromide 17 2 puff inhalation QID 09/17/19 03/12/24 03/12/24 History mcg/actuation HFA aerosol inhaler (Atrovent HFA) theophylline 400 mg 400 mg PO Q12H 09/17/19 03/12/24 03/12/24 History tablet,extended release 24 hr acetaminophen 500 mg tablet 1,000 mg PO 6XD PRN Pain 09/24/19 03/12/24 1 Week Ago History (Tylenol Extra Strength) ~03/12/22 cyclobenzaprine 10 mg tablet 10 mg PO TID 90 days #270 tabs 10/06/21 03/12/24 03/12/24 Rx ascorbic acid (vitamin C) 1,000 mg 1,000 mg PO BID 01/24/22 03/12/24 03/12/24 History tablet cholecalciferol (vitamin D3) 125 125 mcg PO DAILY 01/24/22 03/12/24 03/12/24 History mcg (5,000 unit) capsule Bone Growth Stimulator E0748 #1 ea 02/28/22 03/12/24 Unknown Rx amlodipine 5 mg tablet 5 mg PO DAILY #30 tabs 03/19/22 03/12/24 03/12/24 Rx hydrocortisone 2.5 % topical cream 1 applic LA BID PRN hemorrhoids 06/13/22 03/12/24 Unknown Rx with perineal applicator #30 grams (Anusol-HC) albuterol sulfate 90 mcg/actuation 2 puff inhalation Q6H PRN 04/24/23 03/12/24 Unknown History aerosol inhaler Shortness Of Breath gabapentin 600 mg tablet 600 mg PO TID PRN pain 04/24/23 03/12/24 03/12/24 History spironolactone 25 mg tablet 25 mg PO DAILY #30 tabs 01/24/24 03/12/24 03/12/24 Rx (Aldactone) apixaban 5 mg tablet (Eliquis) 2.5 mg PO BID 03/12/24 03/12/24 03/12/24 History dextromethorphan-guaifenesin 10 5 ml PO Q4H PRN COUGH AND 03/12/24 03/12/24 Unknown History mg-100 mg/5 mL oral syrup CONGESTION diphenhydramine HCl 25 mg capsule 25 mg PO TID PRN ALLERGIES 03/12/24 03/12/24 Unknown History (Benadryl) ferrous sulfate 325 mg (65 mg 325 mg PO DAILY 03/12/24 03/12/24 03/12/24 History iron) tablet lidocaine 5 % topical patch 1 patch topical DAILY 03/12/24 03/12/24 03/12/24 History polyethylene glycol 3350 17 See Rx Instructions .Route 03/12/24 03/12/24 03/12/24 History gram/dose oral powder (Miralax) .COMPLEX CONSTIPATION Allergies Allergy/AdvReac Type Severity Reaction Status Date / Time morphine Allergy Unknown ALGY-Difficulty Verified 03/12/24 11:53 Breathing insect venom AdvReac Unknown Unknown Verified 03/12/24 11:53 PFSH Acute PFSH: Medical History Cardiomyopathy Spondylosis of lumbosacral region without myelopathy or radiculopathy Anxiety and depression Bladder tumor BPH (benign prostatic hyperplasia) CHF (congestive heart failure) Chronic prostatitis Compression fracture of L1 vertebra with routine healing 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 L4-L5, L5-S1 S/P foot surgery, right Dr. Mario at [facility] did right foot surgery 07/08/19 Status post lung surgery 1994 S/P tonsillectomy S/P kyphoplasty L1 02/28/18 Hx of cataract removal with insertion of prosthetic lens 04/05/09 Family History Mother Diabetes Father Suicide Denies family history of Anesthesia complication Bleeding disorder Social History Smoking and tobacco/nicotine status: former use of tobacco/nicotine Quit status (tobacco/nicotine): has quit using Year quit tobacco: 1993 Alcohol intake: never Substance/Drug Use: never Household members: spouse Marital status: Current occupational status: retired Vitals/I&O/Wt Last Vital Signs Temp 97.9 F 03/12/24 11:43 Pulse 101 H 03/12/24 15:02 Resp 24 H 03/12/24 11:43 BP 180/108 03/12/24 11:43 Pulse Ox 90 03/12/24 15:02 O2 Del Method Room Air 03/12/24 15:02 Weight last 48 hrs Weight 95.254 kg Physical Exam Narrative: Left-sided swelling and tenderness on palpation on ankle No significant sinus cellulitis No sign of vascular compromise Swelling extending all the way up to knee Awake and alert Nonfocal neuroexam Right leg is not swollen in comparison Patient is hypertensive No active shortness of breath Currently on room air Abdomen soft Data 03/12/24 12:33 03/12/24 12:33 Micro: Microbiology 03/12/24 12:30 Blood Culture - Preliminary Blood SPECIMEN COLLECTED 03/12/24 15:03 Blood Culture - Preliminary Blood SPECIMEN COLLECTED A&P Assessment and plan (1) CHF (congestive heart failure): Qualifiers: Heart failure type: systolic Heart failure chronicity: chronic Qualified Code(s): I50.22 - Chronic systolic (congestive) heart failure (2) PE (pulmonary thromboembolism): (3) Malignant neoplasm of bladder neck: (4) Cellulitis of left lower leg: Plan Left leg swelling Tender on touch I do not see typical sign of cellulitis however would like to keep him on broad-spectrum antibiotics for now for leukocytosis He is not septic however he is meeting SIRS criteria, lactic acid is normal, no sign of endorgan damage My concern is related to gout Could request uric acid Will give patient high-dose steroids and anti-inflammatory medication Kidney function is normal I will also give him IV opioids Patient had history of thromboembolic disease PE for which she was put on Eliquis in the past Preserved ejection fraction heart failure mild exacerbation Will give 1 dose of Lasix Bladder cancer status post recent surgery Follows up with [facility] urology PCP is Dr. Miller at [place] Eliquis will suffice DVT prophylaxis I will resume opioids oxycodone Attestations Medical Necessity Statement*: Anticipating more than 2 midnights Diagnoses Chronic systolic congestive heart failure I50.22 Heart failure type: systolic Heart failure chronicity: chronic PE (pulmonary thromboembolism) I26.99 Malignant neoplasm of bladder neck C67.5 Cellulitis of left lower leg L03.116
[2024-03-12 17:06] VITALS: RESP 101; O2SAT 90
[2024-03-12] MEDS: morphine 4 mg/mL SDV 1 mL 2 MG IVP (17:06)
[2024-03-12] MEDS: piperacillin-tazobactam 3.375 GM in sodium chloride 0.9% (plus) 50 ML IV (17:10)
[2024-03-12] MEDS: FUROsemide 10 mg/mL SDV 2mL 20 MG IVP (17:10)
[2024-03-12] MEDS: apixaban 5 mg Tablet 2.5 MG PO (17:10)
[2024-03-12 17:19] LABS: NT Pro B Type Natriuretic Pept 247 pg/mL (0-450); Procalcitonin 0.12 ng/mL (0-0.5)
[2024-03-12 17:47] LABS: Uric Acid 5.9 mg/dL (3.4-7.0)
[2024-03-12 18:04] VITALS: BP 175/81; PULSE 81; RESP 17; TEMP 37.1; O2SAT 91
[2024-03-12] MEDS: ketorolac 30 mg/mL INJ 15 MG IVP ×2 (18:41→23:27)
[2024-03-12 20:13] VITALS: BP 154/86; PULSE 96; RESP 16; TEMP 37.1; O2SAT 93
[2024-03-12 20:43] LABS: Estmated Average Glucose 111; Hemoglobin A1C 5.5 % (4.0-6.0)
[2024-03-12 21:14] LABS: Erythrocyte Sedimentation Rate 90 mm/hr (0-10)
[2024-03-12] MEDS: vancomycin 1,500 MG/300 ML PIGGYBACK 200 MG IV (22:06)
[2024-03-13] VITALS (11 sets, daily range): BP systolic 122–185; BP diastolic 70–102; PULSE 77–88; RESP 14–20; TEMP 36.4–36.8; O2SAT 91–95
[2024-03-13] MEDS: oxyCODONE 5 mg IR Tab/Cap PO ×2 (00:02→09:24)
[2024-03-13 05:23] LABS: Basophils # 0.1 10^3/uL (0.0-0.1); Basophils % 0.7 %; Eosinophils # 0.5 10^3/uL (0.0-0.8); Hematocrit 40.4 % (37-53); Lymphocytes # 1.2 10^3/uL (0.8-4.8); Lymphocytes % 9.9 %; Mean Corpuscular HGB Conc 32.9 g/dL (30-55); Mean Corpuscular Hemoglobin 31.3 pg (27-33); Mean Corpuscular Volume 95.1 fl (82-101); Mean Platelet Volume 9.7 fL (7.4-10.4); Monocytes # 0.9 10^3/uL (0.2-0.9); Monocytes % 7.1 %; Neutrophils # 9.47 10^3/uL (1.8-7.7); Neutrophils % 77.6 %; Nucleated Red Blood Cells % 0 %; Platelet Count 431 10^3/cmm (157-399); Red Blood Count 4.25 10^6/uL (3.85-5.65)
[2024-03-13] MEDS: ketorolac 30 mg/mL INJ 15 MG IVP (05:36)
[2024-03-13 05:45] LABS: Anion Gap 16.6 (5-19); Blood Urea Nitrogen 12 mg/dL (8-23); C Reactive Protein 96.5 mg/L (0.0-4.9); Calcium 8.9 mg/dL (8.5-10.5); Carbon Dioxide 25 mmol/L (22-29); Chloride 99 mmol/L (98-107); Creatinine Clr Calc Pharmacy 94.5511; Glucose 94 mg/dL (65-115); Magnesium 2.5 mg/dL (1.7-2.3); Osmolality Calculated 284 mOsm/kg (285-295); Potassium 3.6 mmol/L (3.5-5.1); Sodium 137 mmol/L (136-145)
--- NOTE | 2024-03-13 06:52 | CTR_ITS ---
PROCEDURE INFORMATION: Exam: CT Left Lower Extremity With Contrast; Lower Leg Exam date and time: 03/13/2024 9:10 AM Age: 78 years old Clinical indication: Swelling, leg or foot TECHNIQUE: Imaging protocol: CT of the left lower extremity with intravenous contrast was performed. Exam focused on the lower leg. Radiation optimization: All CT scans at this facility use at least one of these dose optimization techniques: automated exposure control; mA and/or kV adjustment per patient size (includes targeted exams where dose is matched to clinical indication); or iterative reconstruction. Contrast material: [id number]; Contrast volume: 100 ml; Contrast route: INTRAVENOUS (IV); COMPARISON: CR XR tibia fibula LT 2V [id number] 03/12/2024 12:34 PM RADIATION DOSE METRICS: Total DLP (mGy-cm): 700.41 FINDINGS: Bones/joints: The ankle mortise is symmetric. No osteochondral lesion is seen. There is a lytic lesion in the proximal tibial diaphysis measuring 4.1 x 4.0 x 9.3 cm. There is cortical thinning with a minimally displaced, comminuted fracture involving the proximal fibular diaphysis. The intramedullary mass appears to extend through the cortex at site of fractures. Posterior and plantar calcaneal spurs. Soft tissues: Subcutaneous edema and wispy subcutaneous hemorrhage along the anterior and lateral knee/leg. There is more circumferential subcutaneous edema involving the distal lower leg and ankle. CT/CT lower leg LT w con [id number] IMPRESSION: 1. Lytic lesion in the proximal tibial diaphysis suspicious for neoplasm (primary bone neoplasm or metastasis). There is cortical thinning with a minimally displaced, comminuted fracture involving the proximal fibular diaphysis. The intramedullary mass appears to extend through the cortex at site of fractures. 2. Subcutaneous edema and wispy subcutaneous hemorrhage along the anterior and lateral knee/leg. There is more circumferential subcutaneous edema involving the distal lower leg and ankle.
--- NOTE | 2024-03-13 09:00 | PC.CHAP ---
Pastoral Care Encounter/Spiritual Assessment Type of Contact [] Declined pewter finisher visit [] Patient/Family/Request visit [] Outpatient visit [] Follow-up visit [] Physician referral [] Code/Alert [x] Routine visit [] Staff referral [] Actively dying [] Patient sleeping [] Family support [] [] Out of room [] Palliative care [] [] Receiving care in room [] Pre-surgical visit [] Trauma [] Long length of stay [] ICU visit [] Other: Relational/Emotional Strength [x] Patient feels connected with others/family/visitors/staff [] Distress [] Loneliness/isolation [] Abandonment Spirituality of Patient [x] Person of Kylee [] Attends Rastafari of their Kylee [x] Believes in Prayer [] Reads Bible or Jehovah'S Witness materials [] There are Spiritual issues to be addressed Ground Instructor Basic Interventions [x] Prayer [x] Active listening [] Non-anxious presence [x] Spiritual/emotional support [] Crisis/trauma care [] Spiritual counseling [] Bereavement support [] Provided bereavement packet [] Provided Bible/devotional materials [] Provided toy/stuffed animal, coloring book to patient or family member [] Provided Communion [] Anointing/Pixley [] Salvation [x] Completed spiritual assessment [] Other: Impact on Illness or Injury [] Angry [] Fearful [] Anxious [] Often cries [] Exhaustion [] Unable to work [] Unable to attend episcopalian [] Unable to walk/stand [] Unable to read [] Unable to drive [] Unable to eat/drink [] Unable to sleep [] Unable to be with family [] Patient intubated [] Other: Summary Time spent with patient 5 min
[2024-03-13] MEDS: iohexol 350 mg/mL 500 mL Btl (per mL) IV (09:13)
[2024-03-13] MEDS: spironolactone 25 mg Tablet PO (09:24)
[2024-03-13] MEDS: potassium chloride ER 20 mEq Tablet 40 MEQ PO (09:24)
[2024-03-13] MEDS: amlodipine 5 mg Tablet PO (09:24)
[2024-03-13] MEDS: sennosides-docusate Tablet 1 TAB PO (09:24)
[2024-03-13] MEDS: apixaban 5 mg Tablet 2.5 MG PO (09:25)
[2024-03-13] MEDS: predniSONE 20 mg Tablet 60 MG PO (09:25)
[2024-03-13] MEDS: piperacillin-tazobactam 3.375 GM in sodium chloride 0.9% (plus) 50 ML IV ×2 (09:25)
[2024-03-13] MEDS: vancomycin 1,500 MG/300 ML PIGGYBACK 200 MG IV (11:19)
--- NOTE | 2024-03-13 11:37 | P.PN_ITS ---
Subjective 2 Subjective: CT scan was requested which is showing lytic lesion considerable mass concern for metastatic lesion Will consult Dr. Byrd he most likely will need intervention and rehab, Not able to bear weight on it Vitals/I&O/Wt Last Vital Signs Temp 97.6 F 03/13/24 11:00 Pulse 77 03/13/24 11:00 Resp 16 03/13/24 11:00 BP 175/93 03/13/24 11:00 Pulse Ox 93 03/13/24 11:00 O2 Del Method Room Air 03/13/24 11:00 03/12/24 03/13/24 03/13/24 22:59 06:59 14:59 Intake Total 900 / 900 470 / 1370 266.042 / 266.042 Output Total 600 / 600 300 / 300 Balance 900 / 900 -130 / 770 -33.958 / -33.958 Weight last 48 hrs Weight 99.79 kg Weight 98.571 kg Weight 95.254 kg Physical Exam 2 Narrative: Patient is stating that pain is unbearable he cannot put weight on his left leg I do not see any vascular compromise Swelling still present No sign of cellulitis Nonfocal neuroexam GCS 15 Pleasant cough Hemodynamically stable Currently on room air Data 03/13/24 04:22 03/13/24 04:22 Micro: Microbiology 03/12/24 12:30 Blood Culture - Preliminary Blood SPECIMEN COLLECTED 03/12/24 15:03 Blood Culture - Preliminary Blood SPECIMEN COLLECTED A&P Assessment and plan (1) CHF (congestive heart failure): Qualifiers: Heart failure type: systolic Heart failure chronicity: chronic Qualified Code(s): I50.22 - Chronic systolic (congestive) heart failure (2) Cardiomyopathy: (3) Malignant neoplasm of bladder neck: (4) Cellulitis of left lower leg: (5) Lumbar stenosis with neurogenic claudication: (6) COPD (chronic obstructive pulmonary disease) with emphysema: (7) Metastatic cancer to bone: Plan Metastatic lesion on bone with tibial fracture Will consult Dr. Byrd Will keep patient n.p.o. however patient has taken Eliquis He might need to wait till Saturday Patient has history of bladder cancer which seems to be causing bone metastatic lesion, patient will need tissue biopsy as well Hold off on diuretics steroids and ketorolac CT scan of leg positive for bone mass and lytic lesion Most likely patient will need retirement placement and surgical intervention Will ask for Miller catheter placement Increase the dose of opioids Continue bowel regimen Discontinue antibiotics Cellulitis of leg ruled out Attestations 2 Medical Necessity Statement*: Continue medical management Diagnoses Chronic systolic congestive heart failure I50.22 Heart failure type: systolic Heart failure chronicity: chronic Cardiomyopathy I42.9 Malignant neoplasm of bladder neck C67.5 Cellulitis of left lower leg L03.116 Lumbar stenosis with neurogenic claudication M48.062 COPD (chronic obstructive pulmonary disease) with emphysema J43.9 Metastatic cancer to bone C79.51
--- NOTE | 2024-03-13 11:48 | CTR_ITS ---
PROCEDURE INFORMATION: Exam: CT Chest Without Contrast; Diagnostic Exam date and time: 03/13/2024 3:01 PM Age: 78 years old Clinical indication: Condition or disease; Cancer; Other: Bone; Additional info: Cancer mets TECHNIQUE: Imaging protocol: Diagnostic computed tomography of the chest without contrast. Radiation optimization: All CT scans at this facility use at least one of these dose optimization techniques: automated exposure control; mA and/or kV adjustment per patient size (includes targeted exams where dose is matched to clinical indication); or iterative reconstruction. COMPARISON: CR XR ribs RT mn 3V w [id number] 03/12/2024 2:48 PM RADIATION DOSE METRICS: Total DLP (mGy-cm): 1207.76 FINDINGS: Lungs: 1.7 cm calcified granuloma or hamartoma anterior left upper lobe. Bilateral bullous emphysema. 6 mm solid noncalcified nodule lateral left lower lobe image 44 axial series 4. 3 mm solid noncalcified nodule left lower lobe posteriorly image 38. Calcified granulomas in the right lung. Areas of scarring and subsegmental atelectasis in both lungs. A few small irregular noncalcified nodular opacities in the right lung. Pleural spaces: Right pleural calcification and thickening. Otherwise, unremarkable. Heart: Unremarkable. No cardiomegaly. No pericardial effusion. Coronary arteries: Large amount of coronary artery calcification. Lymph nodes: Unremarkable. No enlarged lymph nodes. Vasculature: Moderate amount of systemic arterial and aortic calcification. Bones/joints: Mild scoliosis. Multiple mild thoracic vertebral body compression deformities. Uncertain age. Mild and moderate multilevel spondylosis. Motion artifact causes the appearance of cortical step-offs in both clavicles, in both scapulae, and in both humeri. Fractures in these bones in these locations cannot be excluded by this CT. Acute fracture anterior right 5, 6, 7, 8, and 9 ribs. There is the appearance of cortical step-offs involving the left 1st rib and adjacent vertebrae which is probably motion artifact, but fractures in these bones in these locations cannot be excluded. No other obvious acute thoracic fractures. Soft tissues: Mild bilateral gynecomastia. Otherwise, unremarkable visualized body wall. Otherwise, unremarkable soft tissues. Subsequent management based on the most suspicious nodule(s). (Reference: [place]). 2. Multiple mild thoracic vertebral body compression deformities are of uncertain age. 3. Acute fractures of the anterior right 5, 6, 7, 8, and 9 ribs. 4. There is the appearance of cortical step-offs involving both clavicles, both scapulae, both humeri, the left 1st rib, and the adjacent vertebrae. This is probably motion artifact, but fractures in these bones in these locations cannot be excluded. 5. Additional details as above. COMMENTS: The presence of pulmonary emphysema on CT is an independent risk factor for lung cancer. In the absence of a history or active diagnosis of lung cancer, it is recommended that this patient with emphysema be evaluated for enrollment in a low dose CT lung cancer screening program. REFERENCES: Edwige Kaminski et al. Guidelines for Management of Incidental Pulmonary Nodules Detected on CT Images: From the Fleischner Society 2017. Radiology. 2017;284(1):228-243. PROCEDURE INFORMATION: Exam: CT Abdomen And Pelvis Without Contrast Exam date and time: 03/13/2024 3:01 PM Age: 78 years old Clinical indication: Condition or disease; Cancer; Other: Bone; Additional info: Cancer mets TECHNIQUE: Imaging protocol: Computed tomography of the abdomen and pelvis without contrast. Radiation optimization: All CT scans at this facility use at least one of these dose optimization techniques: automated exposure control; mA and/or kV adjustment per patient size (includes targeted exams where dose is matched to clinical indication); or iterative reconstruction. COMPARISON: CT abdomen pelvis wo/w [id number] 06/11/2023 12:57 PM RADIATION DOSE METRICS: Total DLP (mGy-cm): 1209.76 FINDINGS: Diaphragm: Small hiatal hernia. Liver: Normal. No mass. Gallbladder and biliary ducts: Contracted gallbladder. Noncalcified gallstone in the gallbladder. Gallbladder wall thickening may be due to its contracted state, but acute cholecystitis should be considered in the proper clinical setting. Unremarkable bile ducts. Pancreas: Normal. No ductal dilation. Spleen: Normal. No splenomegaly. Adrenal glands: Normal. No mass. Kidneys and ureters: Again noted are several bilateral renal cysts. These need no follow-up. Otherwise, unremarkable. Stomach and bowel: Again noted are multiple diverticula from the colon. No acute diverticulitis. New irregular thickening of the gastric antral wall and pylorus. This may extend into the 1st duodenal loop. This could be inflammatory or neoplastic. Upper endoscopy is recommended. Otherwise, unremarkable. Appendix: No evidence of appendicitis. Intraperitoneal space: Unremarkable. No free air. No significant fluid collection. Vasculature: Unremarkable. No abdominal aortic aneurysm. Lymph nodes: Large amount of new periaortic, pericaval, and left iliac lymphadenopathy. No other obvious lymphadenopathy. Urinary bladder: Trans urethral Miller catheter in the nearly empty urinary bladder. Contrast in the urinary bladder. Urinary bladder wall appears thick walled which may be due to is nearly empty state. There is gas in the urinary bladder, probably due to the Miller insertion, but cystitis should be considered in the proper clinical setting. Reproductive: Unremarkable as visualized. Bones/joints: Unchanged mild scoliosis. Unchanged moderate L1 compression deformity with osteoplasty cement. Unchanged mild compression deformities all other lumbar vertebral bodies. Unchanged lumbar spondylosis. Unchanged partial ankylosis right sacroiliac joint. Unchanged bilateral hip arthritis. No acute lumbar spine, pelvic, or hip fracture. Otherwise, unremarkable. Soft tissues: Otherwise, unremarkable visualized body wall. Otherwise, unremarkable soft tissues. CT/[place] [id number] IMPRESSION: 1. Noncalcified pulmonary nodules. Recommend CT Chest at 3-6 months. IMPRESSION: 1. New irregular thickening of the gastric antral wall and pylorus, possibly extending into the 1st duodenal loop could be inflammatory or neoplastic. Upper endoscopy is recommended as this could be malignant. 2. Large amount of new para-aortic, pericaval, and left iliac lymphadenopathy is suspicious for metastatic disease. 3. Consider acute cholecystitis in the proper clinical setting. 4. Possible cystitis. 5. Additional details as above. Unchanged.
--- NOTE | 2024-03-13 11:55 | P.CONIM_ITS ---
Providers/Reason For Consult 2 Consulting Physician/Specialty*: Wilfredo Byrd DO/orthopedic surgery Reason for Consult*: Pathologic fracture left proximal tibia Requesting Physician: Dr. Brush Attending Physician: Ed Brush MD Primary Care Provider: Juanis Toledo MD History of Present Illness History of Present Illness H&P obtained from patient as well as medical record from H&P hospitalist : Finn Leigh is a 78 year old male who carries history of bladder cancer status post recent bladder surgery 8 days ago presented to hospital with worsening of left leg pain and swelling. Patient is stating that he has not noticed nausea vomiting rigors chills or fever but experiencing excruciating pain in left leg. He has history of preserved ejection fraction, no previous history of gout, patient is independent lives with his family Patient complained of left lower extremity pain and inability to bear weight and has had multiple recent falls he had x-ray as well as CT scan which demonstrated pathologic appearing fracture of the proximal tibia. Orthopedics was consulted for evaluation and treatment recommendations. Review of Systems 2 General: Reports: 10 or more systems reviewed and unremarkable except in HPI and below Medications/Allergies Home Medications Medication Instructions Recorded Confirmed Last Taken Type ibuprofen 200 mg tablet 200 - 600 mg PO Q8H PRN Pain 09/17/19 03/12/24 03/17/22 History ipratropium bromide 17 2 puff inhalation QID 09/17/19 03/12/24 03/12/24 History mcg/actuation HFA aerosol inhaler (Atrovent HFA) theophylline 400 mg 400 mg PO Q12H 09/17/19 03/12/24 03/12/24 History tablet,extended release 24 hr acetaminophen 500 mg tablet 1,000 mg PO 6XD PRN Pain 09/24/19 03/12/24 1 Week Ago History (Tylenol Extra Strength) ~03/12/22 cyclobenzaprine 10 mg tablet 10 mg PO TID 90 days #270 tabs 10/06/21 03/12/24 03/12/24 Rx ascorbic acid (vitamin C) 1,000 mg 1,000 mg PO BID 01/24/22 03/12/24 03/12/24 History tablet cholecalciferol (vitamin D3) 125 125 mcg PO DAILY 01/24/22 03/12/24 03/12/24 History mcg (5,000 unit) capsule Bone Growth Stimulator E0748 #1 ea 02/28/22 03/12/24 Unknown Rx amlodipine 5 mg tablet 5 mg PO DAILY #30 tabs 03/19/22 03/12/24 03/12/24 Rx hydrocortisone 2.5 % topical cream 1 applic DE BID PRN hemorrhoids 06/13/22 03/12/24 Unknown Rx with perineal applicator #30 grams (Anusol-HC) albuterol sulfate 90 mcg/actuation 2 puff inhalation Q6H PRN 04/24/23 03/12/24 Unknown History aerosol inhaler Shortness Of Breath gabapentin 600 mg tablet 600 mg PO TID PRN pain 04/24/23 03/12/24 03/12/24 History spironolactone 25 mg tablet 25 mg PO DAILY #30 tabs 01/24/24 03/12/24 03/12/24 Rx (Aldactone) apixaban 5 mg tablet (Eliquis) 2.5 mg PO BID 03/12/24 03/12/24 03/12/24 History dextromethorphan-guaifenesin 10 5 ml PO Q4H PRN COUGH AND 03/12/24 03/12/24 Unknown History mg-100 mg/5 mL oral syrup CONGESTION diphenhydramine HCl 25 mg capsule 25 mg PO TID PRN ALLERGIES 03/12/24 03/12/24 Unknown History (Benadryl) ferrous sulfate 325 mg (65 mg 325 mg PO DAILY 03/12/24 03/12/24 03/12/24 History iron) tablet lidocaine 5 % topical patch 1 patch topical DAILY 03/12/24 03/12/24 03/12/24 History polyethylene glycol 3350 17 See Rx Instructions .Route 03/12/24 03/12/24 03/12/24 History gram/dose oral powder (Miralax) .COMPLEX CONSTIPATION Allergies Allergy/AdvReac Type Severity Reaction Status Date / Time insect venom AdvReac Unknown Unknown Verified 03/12/24 11:53 Current Medications Generic Name Dose Route Start Last Admin Trade Name Freq PRN Reason Stop Dose Admin Amlodipine Besylate 5 mg 03/13/24 09:00 03/13/24 09:24 Amlodipine 5 Mg Tablet PO 5 mg DAILY TERE Administration Apixaban 2.5 mg 03/12/24 18:00 03/13/24 09:25 Apixaban 5 Mg Tablet PO 2.5 mg BID TERE Administration Morphine Sulfate 2 mg 03/12/24 15:51 03/12/24 17:06 Morphine 4 Mg/Ml Sdv 1 Ml IVP 2 mg Q4H PRN Administration SEVERE PAIN Oxycodone HCl 5 mg 03/12/24 16:17 03/13/24 09:24 Oxycodone 5 Mg Ir Tab/Cap PO 5 mg Q6H PRN Administration MODERATE PAIN Potassium Chloride 40 meq 03/13/24 09:00 03/13/24 09:24 Potassium Chloride Er 20 Meq Tablet PO 40 meq DAILY TERE Administration Senna/Docusate Sodium 1 tab 03/13/24 09:00 03/13/24 09:24 Sennosides-Docusate Tablet PO 1 tab DAILY TERE Administration Spironolactone 25 mg 03/13/24 09:00 03/13/24 09:24 Spironolactone 25 Mg Tablet PO 25 mg DAILY TERE Administration PFSH Acute 2 PFSH: Medical History Cardiomyopathy Spondylosis of lumbosacral region without myelopathy or radiculopathy Anxiety and depression Bladder tumor BPH (benign prostatic hyperplasia) CHF (congestive heart failure) Chronic prostatitis Compression fracture of L1 vertebra with routine healing 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 L4-L5, L5-S1 S/P foot surgery, right Dr. Mario at [facility] did right foot surgery 07/08/19 Status post lung surgery / 1994 S/P tonsillectomy S/P kyphoplasty L1 02/28/18 Hx of cataract removal with insertion of prosthetic lens 7/14/09 Family History Mother Diabetes Father Suicide Denies family history of Anesthesia complication Bleeding disorder Social History Smoking and tobacco/nicotine status: former use of tobacco/nicotine Quit status (tobacco/nicotine): has quit using Year quit tobacco: 1993 Alcohol intake: never Substance/Drug Use: never Household members: spouse Marital status: Current occupational status: retired Vitals/I&O/Wt Last Vital Signs Temp 97.6 F 03/13/24 11:00 Pulse 77 03/13/24 11:00 Resp 16 03/13/24 11:00 BP 175/93 03/13/24 11:00 Pulse Ox 93 03/13/24 11:00 O2 Del Method Room Air 03/13/24 11:00 03/12/24 03/13/24 03/13/24 22:59 06:59 14:59 Intake Total 900 / 900 470 / 1370 266.042 / 266.042 Output Total 600 / 600 300 / 300 Balance 900 / 900 -130 / 770 -33.958 / -33.958 Weight last 48 hrs Weight 220 lb Weight 217 lb 5 oz Weight 210 lb Physical Exam 2 Narrative: Orthopedic examination: Examination of the left lower extremity demonstrates patient has swelling about the proximal tibia there is no open wounds or lesions. Patient's compartments are soft and compressible. He is able to wiggle the toes as well as subtle plantarflexion and dorsiflexion noted. This is guarded secondary to his pain. He is tender to palpation at the fracture site of the proximal tibia/Pathologic fracture. Distal pulses are palpable. No tenderness palpation at the hip denies any tenderness to palpation of the right lower extremity and able to tolerate gentle logroll examination with no pain or discomfort. He has tenderness to palpation on the right anterior ribs. Patient actively mobilize the bilateral upper extremities with no Pain or discomfort. Data 03/14/24 05:27 03/14/24 05:27 Micro: Microbiology 03/12/24 12:30 Blood Culture - Preliminary Blood SPECIMEN COLLECTED 03/12/24 15:03 Blood Culture - Preliminary Blood SPECIMEN COLLECTED Xray Ortho: Radiologist's impression: Ordering Provider/Ordering MD: Rob Gooden DO Date of Service: 03/12/24 Procedure(s): XR tibia fibula LT 2V [id number] Accession Number(s): [id number] Report Number: [id number] PROCEDURE INFORMATION: Exam: XR Left Tibia and Fibula Exam date and time: 03/12/2024 12:34 PM Age: 78 years old Clinical indication: Injury or trauma; Fall; Blunt trauma; Lower leg; Left TECHNIQUE: Imaging protocol: Radiologic exam of the left tibia and fibula. Views: 2 views. COMPARISON: CR XR foot LT min 3V* [id number] 03/12/2024 12:32 PM FINDINGS: Bones/joints: There is a bone lucency involving the proximal lateral shaft of the tibia measuring 18 mm x 5 mm. This finding is suspicious for a subacute bone injury , or some type of lytic bone injury. No additional findings are seen corresponding to this lesion. Soft tissues: Soft tissue edema is seen in the lateral ankle XR/XR tibia fibula LT 2V [id number] IMPRESSION: 1. Nonspecific lytic appearing bone lesion in the proximal shaft of the tibia 2. Otherwise negative examination. Ordering Provider/Ordering MD: Ed Brush MD Date of Service: 03/13/24 Procedure(s): CT lower leg LT w con [id number] Accession Number(s): [id number] Report Number: [id number] PROCEDURE INFORMATION: Exam: CT Left Lower Extremity With Contrast; Lower Leg Exam date and time: 03/13/2024 9:10 AM Age: 78 years old Clinical indication: Swelling, leg or foot TECHNIQUE: Imaging protocol: CT of the left lower extremity with intravenous contrast was performed. Exam focused on the lower leg. Radiation optimization: All CT scans at this facility use at least one of these dose optimization techniques: automated exposure control; mA and/or kV adjustment per patient size (includes targeted exams where dose is matched to clinical indication); or iterative reconstruction. Contrast material: [id number]; Contrast volume: 100 ml; Contrast route: INTRAVENOUS (IV); COMPARISON: CR XR tibia fibula LT 2V [id number] 03/12/2024 12:34 PM RADIATION DOSE METRICS: Total DLP (mGy-cm): 700.41 FINDINGS: Bones/joints: The ankle mortise is symmetric. No osteochondral lesion is seen. There is a lytic lesion in the proximal tibial diaphysis measuring 4.1 x 4.0 x 9.3 cm. There is cortical thinning with a minimally displaced, comminuted fracture involving the proximal fibular diaphysis. The intramedullary mass appears to extend through the cortex at site of fractures. Posterior and plantar calcaneal spurs. Soft tissues: Subcutaneous edema and wispy subcutaneous hemorrhage along the anterior and lateral knee/leg. There is more circumferential subcutaneous edema involving the distal lower leg and ankle. CT/CT lower leg LT w con [id number] IMPRESSION: 1. Lytic lesion in the proximal tibial diaphysis suspicious for neoplasm (primary bone neoplasm or metastasis). There is cortical thinning with a minimally displaced, comminuted fracture involving the proximal fibular diaphysis. The intramedullary mass appears to extend through the cortex at site of fractures. 2. Subcutaneous edema and wispy subcutaneous hemorrhage along the anterior and lateral knee/leg. There is more circumferential subcutaneous edema involving the distal lower leg and ankle. A&P Assessment and plan (1) Pathologic fracture of tibia and fibula: (2) Metastatic cancer to bone: (3) Malignant neoplasm of bladder neck: (4) COPD (chronic obstructive pulmonary disease) with emphysema: Plan CT scan of leg positive for bone mass and lytic lesion Reviewed imaging Previous history of bladder cancer with surgery over 8 days ago Multiple falls At this point in time patient. Do not have any known metastatic lesions but given his recent cancer history of the bladder concern could be associateHis pathologic fracture of the left proximal tibia and fibula with cancer mets. This overall is in good alignment he has normal swelling but no significant deformity. At this point time he is placed in recommend a long leg posterior splint for stabilization. This point in time talked with hospitalist and will need full metastatic lesion workup including CT chest abdomen pelvis will get an MRI of the pathologic fracture site as well as order standard labs and will defer to primary on this as well as planning on a full body PET scan to evaluate for any other metastatic lesions. Await this workup and discuss with patient his treatment options once workup is satisfied. If this is a primary lesion will need to at least have discussion with outside orthopedic oncology about possible steps moving forward as this may benefit from a nail but would not want to proceed if this is considered the primary cancerous lesion. Patient understands and agrees with current plan. All questions answered. Plan will be for await finalized workup and then further decisions made based on results. All questions answered. Nonweightbearing left lower extremity Posterior long-leg splint Ice as needed Pain control May have a diet Will await finalized metastatic lesion workup Case discussed with patient and hospitalist Coding Level of Care Code Acute Code for Chg Fwd Diagnoses Pathologic fracture of tibia and fibula M84.469A Metastatic cancer to bone C79.51 Malignant neoplasm of bladder neck C67.5 COPD (chronic obstructive pulmonary disease) with emphysema J43.9 Time Spent (min) 50
[2024-03-13 12:45] LABS: Calcium 8.6 mg/dL (8.5-10.5)
[2024-03-13 12:52] LABS: Parathyroid Hormone 43.3 pg/mL (15-65)
[2024-03-13] MEDS: morphine 4 mg/mL SDV 1 mL 2 MG IVP ×2 (16:48→23:46)
[2024-03-14] VITALS (12 sets, daily range): BP systolic 143–190; BP diastolic 73–100; PULSE 79–88; RESP 16–19; TEMP 36.4–36.7; O2SAT 94–96
[2024-03-14] MEDS: HYDROmorphone 1 mg/mL INJ 1 mL 0.400000000000000022 MG IVP ×2 (04:49→18:02)
--- NOTE | 2024-03-14 04:58 | P.PN_ITS ---
Subjective 2 Subjective: overnight Concern for GI bleed as well High ESR noted SPEP UPEP requested Whole-body bone scan requested Appreciate Dr. Byrd's recommendations Concern for GI metastatic lesions Significant para-aortic iliac lymphadenopathy Mrs álvarez [phone] Vitals/I&O/Wt Last Vital Signs Temp 98.3 F 03/13/24 15:00 Pulse 83 03/13/24 15:00 Resp 18 03/13/24 16:48 BP 165/95 03/13/24 15:00 Pulse Ox 91 03/13/24 15:00 O2 Del Method Room Air 03/13/24 15:00 03/13/24 03/13/24 03/13/24 06:59 14:59 22:59 Intake Total 470 / 1370 830.000 / 830.000 Output Total 600 / 600 300 / 300 Balance -130 / 770 530.000 / 530.000 Weight last 48 hrs Weight 99.79 kg Weight 98.571 kg Weight 95.254 kg Physical Exam 2 Narrative: Patient is euvolemic Skin wrinkling noted of lower extremity Pleasant cooperative Hemodynamically stable Currently on room air Nonfocal neuroexam Abdomen nontender Data 03/13/24 04:22 03/13/24 04:22 Micro: Microbiology 03/12/24 12:30 Blood Culture - Preliminary Blood NEGATIVE TO DATE 03/12/24 15:03 Blood Culture - Preliminary Blood NEGATIVE TO DATE A&P Assessment and plan (1) CHF (congestive heart failure): Qualifiers: Heart failure chronicity: chronic Heart failure type: systolic Qualified Code(s): I50.22 - Chronic systolic (congestive) heart failure (2) PE (pulmonary thromboembolism): (3) Malignant neoplasm of bladder neck: (4) Metastatic cancer to bone: (5) Osteoarthritis of spine with radiculopathy, lumbar region: (6) COPD (chronic obstructive pulmonary disease) with emphysema: Plan Cellulitis ruled out Discontinue antibiotic Bladder cancer with mets Significant lymphadenopathy noted GI track metastatic lesion No fever however patient does have mild leukocytosis Will request gallbladder ultrasound as well Requesting whole-body bone scan Pathological left lower extremity fracture Appreciate Dr. Byrd's recommendations History of DVT/PE: Eliquis on hold Continue opiate w along bowel regimen Full code Cardiac diet Further plan will be made after reviewing imaging report Steroids, ketorolac, potassium and Lasix discontinued Hypertension: Adjust antihypertensive regimen Attestations 2 Medical Necessity Statement*: Continue medical management Diagnoses Chronic systolic congestive heart failure I50.22 Heart failure chronicity: chronic Heart failure type: systolic PE (pulmonary thromboembolism) I26.99 Malignant neoplasm of bladder neck C67.5 Metastatic cancer to bone C79.51 Osteoarthritis of spine with radiculopathy, lumbar region M47.26 COPD (chronic obstructive pulmonary disease) with emphysema J43.9
[2024-03-14] MEDS: levoFLOXacin 750 mg Tablet PO (05:27)
[2024-03-14 06:08] LABS: Basophils % 0.3 %; Eosinophils % 0.2 %; Hematocrit 40.4 % (37-53); Lymphocytes # 1.2 10^3/uL (0.8-4.8); Lymphocytes % 8.6 %; Mean Corpuscular HGB Conc 33.4 g/dL (30-55); Mean Corpuscular Hemoglobin 31.2 pg (27-33); Mean Corpuscular Volume 93.3 fl (82-101); Mean Platelet Volume 9.8 fL (7.4-10.4); Monocytes # 0.9 10^3/uL (0.2-0.9); Monocytes % 6.8 %; Neutrophils # 11.54 10^3/uL (1.8-7.7); Neutrophils % 83.7 %; Nucleated Red Blood Cells % 0 %; Platelet Count 496 10^3/cmm (157-399); Red Blood Count 4.33 10^6/uL (3.85-5.65); Red Cell Distribution Width 12.7 % (12.1-15.1); White Blood Count 13.78 10^3/uL (3.29-11.43)
[2024-03-14 06:30] LABS: Blood Urea Nitrogen 13 mg/dL (8-23); Calcium 8.9 mg/dL (8.5-10.5); Carbon Dioxide 25 mmol/L (22-29); Chloride 102 mmol/L (98-107); Creatinine Clr Calc Pharmacy 95.4987; Glucose 109 mg/dL (65-115); Osmolality Calculated 287 mOsm/kg (285-295); Sodium 138 mmol/L (136-145)
[2024-03-14] MEDS: sennosides-docusate Tablet 1 TAB PO (08:41)
[2024-03-14] MEDS: spironolactone 25 mg Tablet PO (08:41)
[2024-03-14] MEDS: amlodipine 5 mg Tablet PO (08:41)
[2024-03-14] MEDS: hyDRALAzine 25 mg Tablet PO ×3 (08:41→20:45)
[2024-03-14] MEDS: oxyCODONE 5 mg IR Tab/Cap PO ×2 (08:46→15:25)
[2024-03-14] MEDS: gadobenate dimeglumine 20 mL vial IV (10:22)
[2024-03-14] MEDS: morphine 4 mg/mL SDV 1 mL 2 MG IVP ×2 (11:42→22:25)
--- NOTE | 2024-03-14 11:55 | MRR_ITS ---
PROCEDURE INFORMATION: Exam: MR Left Lower Extremity Without and With Contrast, Tibia Fibula Exam date and time: 03/14/2024 9:36 AM Age: 78 years old Clinical indication: Pain and injury or trauma; Fall; Fracture, pathological; Tibia; Left; Closed fracture; Lower leg; Additional info: Pathologic fracture left proximal tibia, evaluation of pathologic lesion TECHNIQUE: Imaging protocol: Magnetic resonance imaging of the left lower extremity without and with contrast. Exam focused on the tibia and fibula. Contrast material: MULTIHANCE; Contrast volume: 20 ml; Contrast route: INTRAVENOUS (IV); COMPARISON: CT lower leg LT w con [id number] 03/13/2024 9:10 AM FINDINGS: Bones/joints: Field of view on this study includes from the level of the distal femoral condyles down to the distal tibial/fibular shafts. The tibial marrow space extending from the proximal metaphysis down to the edge of the [id number] (distal diaphysis) is replaced and mildly expanded by the presence of T1/T2 heterogenous and heterogenously enhancing mass; as seen better on the CT, there is a transversely oriented fracture through the proximal tibial diaphysis. The medial tibial cortex in the vicinity of the fracture demonstrates pronounced endosteal scalloping and cortical breakthrough, with extra cortical spread of mass seen to infiltrate the adjacent tibialis anterior , tibialis posterior and popliteus muscle bellies. There is also cortical breakthrough at the anteromedial cortex of the tibia with extracortical extent of enhancing mass into the subcutaneous fat of the anterior thomas. The subcutaneous fat and skin overlying the anterior thomas demonstrate edema and enhancement that is contiguous with the soft tissue mass, which may indicate malignant spread to the skin . A large portion of the mass centered at proximal tibial shaft (measuring roughly 36 x 100 mm) shows absence of any postcontrast enhancement, suggestive of a large necrotic component that occupies the medullary space and partially extends out into the tibialis anterior muscle belly. Partially imaged left knee demonstrates pronounced myxoid degenerative changes of the medial and lateral menisci without definite rikki meniscal tear seen on these limited images. Soft tissues: Nonspecific subcutaneous soft tissue swelling and edema involving the posterior aspect of the distal thigh, as well as the medial and lateral aspects of the mid calf region. Other findings: . MR/MR lower leg LT wo/w con [id number] IMPRESSION: Expansile mass centered at the proximal tibial shaft medullary space as described, including a large necrotic component, demonstrating cortical breakthrough with mass infiltration of the surrounding calf musculature and possible extension to the skin surface as detailed above. Transversely oriented nondisplaced pathologic fracture at the proximal tibial diaphysis.
--- NOTE | 2024-03-14 11:57 | P.PN_ITS ---
Subjective 2 Subjective: Patient seen and examined today posterior long-leg splint on in place continue to work on pain control awaiting further imaging and lab results. Consider possible surgical intervention likely on Saturday after patient has full body PET scan. Case discussed with patient as well as hospitalist. Vitals/I&O/Wt Last Vital Signs Temp 98.0 F 03/14/24 07:00 Pulse 82 03/14/24 09:05 Resp 18 03/14/24 11:42 BP 190/98 03/14/24 07:00 Pulse Ox 96 03/14/24 09:05 O2 Del Method Room Air 03/14/24 09:05 03/13/24 03/14/24 03/14/24 22:59 06:59 14:59 Intake Total 0 / 830.000 0 / 830.000 Output Total 850 / 1150 Balance 0 / 530.000 -850 / -320.000 Weight last 48 hrs Weight 224 lb 11.2 oz Weight 220 lb Weight 217 lb 5 oz Physical Exam 2 Narrative: Splint on in place and limits examination left lower extremity but is tenderness to palpation at the fracture site compartments are soft and compressible he is able to gently wiggle toes. Left lower extremity is warm well-perfused. Splint on in place. Urinary Catheter Management: Miller: Cath Placed During This Visit: no Reason for Continuing Indwelling Catheter: Required Immobilization for Trauma or Surgery or Anesthesia Data 03/14/24 05:27 03/14/24 05:27 Micro: Microbiology 03/12/24 12:30 Blood Culture - Preliminary Blood NEGATIVE TO DATE 03/12/24 15:03 Blood Culture - Preliminary Blood NEGATIVE TO DATE CT Abd/Pel: Radiologist's impression: Ordering Provider/Ordering MD: Ed Brush MD Date of Service: 03/13/24 Procedure(s): [place] [id number] Accession Number(s): [id number] Report Number: [id number] PROCEDURE INFORMATION: Exam: CT Chest Without Contrast; Diagnostic Exam date and time: 03/13/2024 3:01 PM Age: 78 years old Clinical indication: Condition or disease; Cancer; Other: Bone; Additional info: Cancer mets TECHNIQUE: Imaging protocol: Diagnostic computed tomography of the chest without contrast. Radiation optimization: All CT scans at this facility use at least one of these dose optimization techniques: automated exposure control; mA and/or kV adjustment per patient size (includes targeted exams where dose is matched to clinical indication); or iterative reconstruction. COMPARISON: CR XR ribs RT mn 3V w CXR1V [id number] 03/12/2024 2:48 PM RADIATION DOSE METRICS: Total DLP (mGy-cm): 1207.76 FINDINGS: Lungs: 1.7 cm calcified granuloma or hamartoma anterior left upper lobe. Bilateral bullous emphysema. 6 mm solid noncalcified nodule lateral left lower lobe image 44 axial series 4. 3 mm solid noncalcified nodule left lower lobe posteriorly image 38. Calcified granulomas in the right lung. Areas of scarring and subsegmental atelectasis in both lungs. A few small irregular noncalcified nodular opacities in the right lung. Pleural spaces: Right pleural calcification and thickening. Otherwise, unremarkable. Heart: Unremarkable. No cardiomegaly. No pericardial effusion. Coronary arteries: Large amount of coronary artery calcification. Lymph nodes: Unremarkable. No enlarged lymph nodes. Vasculature: Moderate amount of systemic arterial and aortic calcification. Bones/joints: Mild scoliosis. Multiple mild thoracic vertebral body compression deformities. Uncertain age. Mild and moderate multilevel spondylosis. Motion artifact causes the appearance of cortical step-offs in both clavicles, in both scapulae, and in both humeri. Fractures in these bones in these locations cannot be excluded by this CT. Acute fracture anterior right 5, 6, 7, 8, and 9 ribs. There is the appearance of cortical step-offs involving the left 1st rib and adjacent vertebrae which is probably motion artifact, but fractures in these bones in these locations cannot be excluded. No other obvious acute thoracic fractures. Soft tissues: Mild bilateral gynecomastia. Otherwise, unremarkable visualized body wall. Otherwise, unremarkable soft tissues. Subsequent management based on the most suspicious nodule(s). (Reference: [facility]). 2. Multiple mild thoracic vertebral body compression deformities are of uncertain age. 3. Acute fractures of the anterior right 5, 6, 7, 8, and 9 ribs. 4. There is the appearance of cortical step-offs involving both clavicles, both scapulae, both humeri, the left 1st rib, and the adjacent vertebrae. This is probably motion artifact, but fractures in these bones in these locations cannot be excluded. 5. Additional details as above. COMMENTS: The presence of pulmonary emphysema on CT is an independent risk factor for lung cancer. In the absence of a history or active diagnosis of lung cancer, it is recommended that this patient with emphysema be evaluated for enrollment in a low dose CT lung cancer screening program. A&P Assessment and plan (1) Pathologic fracture of tibia and fibula: (2) Metastatic cancer to bone: (3) Malignant neoplasm of bladder neck: (4) COPD (chronic obstructive pulmonary disease) with emphysema: Plan Nonweightbearing left lower extremity Posterior long-leg splint Ice as needed Pain control May have a diet Will await finalized metastatic lesion workup Case discussed with patient and hospitalist Attestations 2 Medical Necessity Statement*: undergoing workup for pathologic fracture left proximal tibia Coding Level of Care Code Acute Code for Chg Fwd Diagnoses Pathologic fracture of tibia and fibula M84.469A Metastatic cancer to bone C79.51 Malignant neoplasm of bladder neck C67.5 COPD (chronic obstructive pulmonary disease) with emphysema J43.9 Time Spent (min) 25
[2024-03-14 12:59] LABS: Creatinine, Random Urine 80 mg/dL (20-320); Protein, Total, Random 37 mg/dL (5-25); Protein/Creatinine Ratio 0.463 (0.025-0.148); Protein/Creatinine Ratio 463 mg/g creat (25-148)
[2024-03-15] VITALS (15 sets, daily range): BP systolic 154–178; BP diastolic 72–101; PULSE 73–98; RESP 16–19; TEMP 36.4–36.9; O2SAT 93–96
[2024-03-15] MEDS: morphine 4 mg/mL SDV 1 mL 2 MG IVP ×4 (02:57→23:16)
[2024-03-15] MEDS: oxyCODONE 5 mg IR Tab/Cap PO ×3 (05:04→20:07)
[2024-03-15] MEDS: levoFLOXacin 750 mg Tablet PO (05:04)
[2024-03-15 05:34] LABS: Basophils # 0.1 10^3/uL (0.0-0.1); Basophils % 0.5 %; Eosinophils % 0.3 %; Hematocrit 41.8 % (37-53); Lymphocytes # 0.7 10^3/uL (0.8-4.8); Lymphocytes % 7.2 %; Mean Corpuscular Hemoglobin 30.9 pg (27-33); Mean Corpuscular Volume 93.5 fl (82-101); Mean Platelet Volume 9.9 fL (7.4-10.4); Monocytes # 0.8 10^3/uL (0.2-0.9); Neutrophils # 8.42 10^3/uL (1.8-7.7); Neutrophils % 83.5 %; Nucleated Red Blood Cells % 0 %; Platelet Count 459 10^3/cmm (157-399); Red Blood Count 4.47 10^6/uL (3.85-5.65); Red Cell Distribution Width 13.3 % (12.1-15.1); White Blood Count 10.09 10^3/uL (3.29-11.43)
[2024-03-15 05:55] LABS: Anion Gap 13.8 (5-19); Blood Urea Nitrogen 12 mg/dL (8-23); Calcium 8.8 mg/dL (8.5-10.5); Carbon Dioxide 24 mmol/L (22-29); Chloride 100 mmol/L (98-107); Creatinine Clr Calc Pharmacy 93.1604; Glucose 96 mg/dL (65-115); Osmolality Calculated 278 mOsm/kg (285-295); Potassium 3.8 mmol/L (3.5-5.1); Sodium 134 mmol/L (136-145)
[2024-03-15] MEDS: spironolactone 25 mg Tablet PO (08:46)
[2024-03-15] MEDS: hyDRALAzine 25 mg Tablet PO ×3 (08:46→20:07)
[2024-03-15] MEDS: amlodipine 5 mg Tablet PO (08:47)
--- NOTE | 2024-03-15 09:29 | P.PN_ITS ---
Subjective 2 Subjective: Patient is stating that he would not go to [facility] or [place] He is avoiding travel He might agree for chemotherapy He is okay with intervention for his fracture and finding out biopsy report Will call Dr. Choudhury to get to know about the biopsy report Vitals/I&O/Wt Last Vital Signs Temp 97.5 F L 03/15/24 08:25 Pulse 83 03/15/24 08:30 Resp 16 03/15/24 08:30 BP 173/76 03/15/24 08:25 Pulse Ox 94 03/15/24 08:30 O2 Del Method Room Air 03/15/24 08:30 03/14/24 03/15/24 03/15/24 22:59 06:59 14:59 Intake Total 600 / 840 0 / 840 Output Total 1100 / 1100 700 / 1800 Balance -500 / -260 -700 / -960 Weight last 48 hrs Weight 96.661 kg Weight 101.922 kg Physical Exam 2 Narrative: Awake and alert Eating breakfast GCS 15 Hemodynamic stable Currently on room air Nonfocal neuroexam S1, S2 Urinary Catheter Management: Miller: Cath Placed During This Visit: no Reason for Continuing Indwelling Catheter: Other Data 03/15/24 04:19 03/15/24 04:19 A&P Assessment and plan (1) Malignant neoplasm of bladder neck: (2) Metastatic cancer to bone: (3) Pathologic fracture of tibia and fibula: (4) Abdominal lymphadenopathy: Plan Concern for cancer with metastatic lesion Patient stating that he might go for chemotherapy but he is not planning to travel to [facility] Patient is stating that his CODE STATUS is DNR he would never want chest compressions defibrillation or intubation in case of any emergency Please follow-up with Dr. Byrd Bone scan is pending MRI report reviewed Attestations 2 Medical Necessity Statement*: Continue medical management Diagnoses Malignant neoplasm of bladder neck C67.5 Metastatic cancer to bone C79.51 Pathologic fracture of tibia and fibula M84.469A Abdominal lymphadenopathy R59.0
--- NOTE | 2024-03-15 10:59 | P.PN_ITS ---
Subjective 2 Subjective: Patient seen and examined this morning. Pain controlled with medications. At this point time awaiting whole-body PET scan tomorrow to discuss final treatment options as well as plan moving forward pertaining to patient's left proximal tibia pathologic fracture. Patient understands and agrees with current plan. All questions answered. Call made attempted to talk with today unfortunately went to voicemail. Vitals/I&O/Wt Last Vital Signs Temp 97.5 F L 03/15/24 08:25 Pulse 83 03/15/24 08:30 Resp 16 03/15/24 08:30 BP 173/76 03/15/24 08:25 Pulse Ox 94 03/15/24 08:30 O2 Del Method Room Air 03/15/24 08:30 03/14/24 03/15/24 03/15/24 22:59 06:59 14:59 Intake Total 600 / 840 0 / 840 480 / 480 Output Total 1100 / 1100 700 / 1800 Balance -500 / -260 -700 / -960 480 / 480 Weight last 48 hrs Weight 213 lb 1.6 oz Weight 224 lb 11.2 oz Physical Exam 2 Narrative: Splint on in place and limits examination left lower extremity but is tenderness to palpation at the fracture site compartments are soft and compressible he is able to gently wiggle toes. Left lower extremity is warm well-perfused. Splint on in place. Urinary Catheter Management: Miller: Cath Placed During This Visit: no Reason for Continuing Indwelling Catheter: Other Data 03/15/24 04:19 03/15/24 04:19 A&P Assessment and plan (1) Pathologic fracture of tibia and fibula: (2) Metastatic cancer to bone: (3) Malignant neoplasm of bladder neck: (4) COPD (chronic obstructive pulmonary disease) with emphysema: Plan Nonweightbearing left lower extremity Posterior long-leg splint Ice as needed Pain control May have a diet Will await finalized metastatic lesion workup PET scan tomorrow Follow-up after to discuss results treatment options. Will be n.p.o. at midnight tonight. Case discussed with patient and hospitalist Attestations 2 Medical Necessity Statement*: undergoing workup for pathologic fracture left proximal tibia Coding Level of Care Code Acute Code for Chg Fwd Diagnoses Pathologic fracture of tibia and fibula M84.469A Metastatic cancer to bone C79.51 Malignant neoplasm of bladder neck C67.5 COPD (chronic obstructive pulmonary disease) with emphysema J43.9 Time Spent (min) 15
[2024-03-15] MEDS: HYDROmorphone 1 mg/mL INJ 1 mL 0.400000000000000022 MG IVP (17:04)
[2024-03-16] VITALS (11 sets, daily range): BP systolic 147–164; BP diastolic 81–92; PULSE 75–90; RESP 16–18; TEMP 36.3–36.9; O2SAT 91–97
[2024-03-16] MEDS: HYDROmorphone 1 mg/mL INJ 1 mL 0.400000000000000022 MG IVP ×3 (01:12→20:15)
[2024-03-16] MEDS: morphine 4 mg/mL SDV 1 mL 2 MG IVP ×3 (03:15→21:07)
[2024-03-16] MEDS: levoFLOXacin 750 mg Tablet PO (05:40)
[2024-03-16] MEDS: amlodipine 5 mg Tablet PO (08:37)
[2024-03-16] MEDS: spironolactone 25 mg Tablet PO (08:40)
[2024-03-16] MEDS: hyDRALAzine 25 mg Tablet PO ×3 (08:40→20:15)
[2024-03-16] MEDS: sennosides-docusate Tablet 1 TAB PO (08:40)
[2024-03-16] MEDS: oxyCODONE 5 mg IR Tab/Cap PO ×2 (08:40→15:38)
[2024-03-16 11:59] LABS: THYROID PEROXIDASE ANTIBODIES 1 IU/mL (<9)
--- NOTE | 2024-03-16 12:07 | P.PN_ITS ---
Subjective 2 Subjective: Bone scan is showing lesions related to cancer, spoke with Dr. Byrd who is going to talk with orthopedic surgeon in [place] patient may need to be transferred Vitals/I&O/Wt Last Vital Signs Temp 98.0 F 03/16/24 11:56 Pulse 88 03/16/24 11:56 Resp 16 03/16/24 09:09 BP 147/82 03/16/24 11:56 Pulse Ox 93 03/16/24 11:56 O2 Del Method Room Air 03/16/24 11:56 03/15/24 03/16/24 03/16/24 22:59 06:59 14:59 Intake Total 480 / 1200 100 / 1300 Output Total 800 / 800 850 / 1650 Balance -320 / 400 -750 / -350 Weight last 48 hrs Weight 95.98 kg Weight 96.661 kg Physical Exam 2 Narrative: Patient is awake and alert Signs of fluid load improving Hemodynamically stable Abdomen soft Left leg swelling present No sign of vascular compromise He does have dorsal pedis pulses bilaterally I do not see any sign of vascular compromise Urinary Catheter Management: Miller: Cath Placed During This Visit: no Reason for Continuing Indwelling Catheter: Required Immobilization for Trauma or Surgery or Anesthesia Data 03/15/24 04:19 03/15/24 04:19 A&P Assessment and plan (1) Malignant neoplasm of bladder neck: (2) Metastatic cancer to bone: (3) Failed back syndrome, lumbar: (4) Pathologic fracture of tibia and fibula: (5) Chronic radicular low back pain: (6) COPD (chronic obstructive pulmonary disease) with emphysema: (7) Abdominal lymphadenopathy: Plan Patient might need to be transferred to tertiary care center considering malignant lesion of left leg, Hemodynamically stable No sign of vascular compromise SPEP UPEP requested Interpretation is pending Calcium PTH normal Blood pressure stable Hemodynamically stable Bone scan completed today MRI reviewed as well Discussed with Dr. Byrd Patient is DNR/DNI Attestations 2 Medical Necessity Statement*: Continue medical management Diagnoses Malignant neoplasm of bladder neck C67.5 Metastatic cancer to bone C79.51 Failed back syndrome, lumbar M96.1 Pathologic fracture of tibia and fibula M84.469A Chronic radicular low back pain M54.16; G89.29 COPD (chronic obstructive pulmonary disease) with emphysema J43.9 Abdominal lymphadenopathy R59.0
--- NOTE | 2024-03-16 12:13 | NM_ITS ---
WS: [id number] NUCLEAR MEDICINE BONE SCAN Radiopharmaceutical: 26.3 Tc-99m MDP mCi IV Injection site: Antecubital Postinjection imaging delay: 1 hr CLINICAL INFORMATION: LYTIC LESION COMPARISON: Recent MRI and CT FINDINGS: Bone lesions: Diffuse punctate focal uptake in multiple RIGHT anterior and LEFT anterior ribs as well as a few RIGHT posterior ribs suspicious for recent trauma with healing fractures. Diffuse increased bony activity in the proximal tibia corresponding to the CT and MRI findings suspic ious for neoplasm, metastatic disease, or possibly osteomyelitis. Soft tissue contours: Normal. Kidneys: Normal. Other findings: None. NM/NM bone scan whole body* [id number] IMPRESSION: 1. Diffuse increased bony activity in the proximal tibia corresponding to the CT and MRI findings suspicious for neoplasm or metastatic disease as previously described on this studies. Also consider osteomyelitis although less likely wi th the soft tissue component on MRI. 2. Multiple punctate foci of radiotracer activity in the bilateral ribs compat ible with recent trauma and healing rib fractures. 3. No other suspicious foci of uptake
[2024-03-16 13:55] LABS: PROTEIN, TOTAL 7.3 g/dL (6.1-8.1)
--- NOTE | 2024-03-16 14:16 | PM.PN ---
Subjective Subjective: Patient seen and examined and staffed results of PET scan which shows a pathologic fracture lesion lit up on PET scan there does not appear to be any other mets elsewhere does appear to have some light up at the ribs at the sites of fractures but no other apparent metastatic lesions. Updated patient that I did staffed this with the orthopedic oncologist at [facility] who who is willing to accept the patient and my recommendation at this point time given this needs appropriate workup as far as biopsy and treatment for this would be better treated in the hands of an orthopedic oncologist she understands and plan will be for transfer patient to a tertiary facility. Vitals/I&O/Wt Last Vital Signs Temp 98.0 F 03/16/24 11:56 Pulse 88 03/16/24 11:56 Resp 16 03/16/24 09:09 BP 147/82 03/16/24 11:56 Pulse Ox 93 03/16/24 11:56 O2 Del Method Room Air 03/16/24 11:56 03/15/24 03/16/24 03/16/24 22:59 06:59 14:59 Intake Total 480 / 1200 100 / 1300 Output Total 800 / 800 850 / 1650 Balance -320 / 400 -750 / -350 Weight last 48 hrs Weight 211 lb 9.6 oz Weight 213 lb 1.6 oz Physical Exam Narrative: Splint on in place and limits examination left lower extremity but is tenderness to palpation at the fracture site compartments are soft and compressible he is able to gently wiggle toes. Left lower extremity is warm well-perfused. Splint on in place. Urinary Catheter Management: Miller: Cath Placed During This Visit: no Reason for Continuing Indwelling Catheter: Required Immobilization for Trauma or Surgery or Anesthesia Data 03/17/24 04:29 03/17/24 04:29 Xray Ortho: Radiologist's impression: NM/NM bone scan whole body* [id number] IMPRESSION: 1. Diffuse increased bony activity in the proximal tibia corresponding to the CT and MRI findings suspicious for neoplasm or metastatic disease as previously described on this studies. Also consider osteomyelitis although less likely with the soft tissue component on MRI. 2. Multiple punctate foci of radiotracer activity in the bilateral ribs compatible with recent trauma and healing rib fractures. 3. No other suspicious foci of uptake MR/MR lower leg LT wo/w con [id number] IMPRESSION: Expansile mass centered at the proximal tibial shaft medullary space as described, including a large necrotic component, demonstrating cortical breakthrough with mass infiltration of the surrounding calf musculature and possible extension to the skin surface as detailed above. Transversely oriented nondisplaced pathologic fracture at the proximal tibial diaphysis. A&P Assessment and plan (1) Pathologic fracture of tibia and fibula: (2) Malignant neoplasm of bladder neck: (3) COPD (chronic obstructive pulmonary disease) with emphysema: Plan Nonweightbearing left lower extremity Posterior long-leg splint Ice as needed Pain control May have a diet Case discussed with hospitalist I did staffed patient with Dr. Anna at [facility] in [place] who is an orthopedic oncologist at this point in time given the PET scan shows that there is no focal uptake elsewhere besides the fractures of the ribs which are likely from his acute trauma and fall that this in my opinion is not a confirmed metastatic lesion and patient would benefit from a biopsy and completed treatment from an orthopedic oncologist from the beginning to the completion of care I feel as though this is out of the scope of my practice and staffed this with [facility] and agreed that they would consult and be willing to treat patient. I staffed this with our hospitalist who will set up for a transfer to tertiary facility planning on [facility]. At this point in time I have updated patient on this and this would be my recommendation as this is outside the scope of my practice and patient would be better treated at a tertiary facility with orthopedic oncology starting with the biopsy to completion of treatment as well as to give him his full treatment options and recommendations. He was somewhat hesitant did not want to leave but ultimately feel this would be in his best interest as far as finalizes his treatment as well as to optimize his outcomes. This point time I will sign off patient at this time and follow peripherally if there is any question pertaining patient's care for free to contact orthopedics. At this point in time I had spoken and it sounds as though he was due was on a wait list and would recommend discussion with possible other tertiary care facilities for transfer if needed for any discussion please contact and do not hesitate to call. All questions answered. Will sign off and follow peripherally. Attestations Medical Necessity Statement*: undergoing workup for pathologic fracture left proximal tibia Coding Level of Care Code Acute Code for Chg Fwd Diagnoses Pathologic fracture of tibia and fibula M84.469A Malignant neoplasm of bladder neck C67.5 COPD (chronic obstructive pulmonary disease) with emphysema J43.9 Time Spent (min) 50
[2024-03-16 14:28] LABS: CENTROMERE B ANTIBODY <1.0 NEG AI (<1.0 NEG); JO-1 ANTIBODY <1.0 NEG AI (<1.0 NEG); RNP ANTIBODY <1.0 NEG AI (<1.0 NEG); SCL-70 ANTIBODY <1.0 NEG AI (<1.0 NEG); SJOGREN'S ANTIBODY (SS-A) <1.0 NEG AI (<1.0 NEG); SM ANTIBODY <1.0 NEG AI (<1.0 NEG); SS-B <1.0 NEG AI (<1.0 NEG)
[2024-03-16 15:39] LABS: ANA SCREEN, IFA NEGATIVE (NEGATIVE)
[2024-03-16] MEDS: heparin 5,000 unit/mL INJ 1 mL 5000 UNIT SUBCUT ×2 (15:39→23:43)
--- NOTE | 2024-03-16 15:40 | PC.SOCIAL ---
IMM Updated Updated pt on IMM. No questions voiced. Provided pt a copy. Initialed, dated, & timed copy in chart.
[2024-03-17] VITALS (9 sets, daily range): BP systolic 139–185; BP diastolic 77–93; PULSE 67–85; RESP 16–18; TEMP 36.3–37.4; O2SAT 92–96
[2024-03-17] MEDS: HYDROmorphone 1 mg/mL INJ 1 mL 0.400000000000000022 MG IVP ×2 (00:13→08:07)
[2024-03-17] MEDS: morphine 4 mg/mL SDV 1 mL 2 MG IVP (02:46)
[2024-03-17 05:10] LABS: Basophils # 0.1 10^3/uL (0.0-0.1); Basophils % 0.7 %; Eosinophils # 0.3 10^3/uL (0.0-0.8); Eosinophils % 2.8 %; Hematocrit 44.2 % (37-53); Lymphocytes # 1.2 10^3/uL (0.8-4.8); Lymphocytes % 13.1 %; Mean Corpuscular HGB Conc 32.8 g/dL (30-55); Mean Corpuscular Hemoglobin 30.3 pg (27-33); Mean Corpuscular Volume 92.3 fl (82-101); Mean Platelet Volume 9.8 fL (7.4-10.4); Monocytes # 0.9 10^3/uL (0.2-0.9); Monocytes % 9.9 %; Neutrophils % 72.9 %; Nucleated Red Blood Cells % 0 %; Platelet Count 436 10^3/cmm (157-399); Red Blood Count 4.79 10^6/uL (3.85-5.65); Red Cell Distribution Width 13.4 % (12.1-15.1); White Blood Count 8.91 10^3/uL (3.29-11.43)
[2024-03-17] MEDS: levoFLOXacin 750 mg Tablet PO (05:25)
[2024-03-17 05:41] LABS: Blood Urea Nitrogen 13 mg/dL (8-23); Calcium 8.6 mg/dL (8.5-10.5); Carbon Dioxide 25 mmol/L (22-29); Chloride 100 mmol/L (98-107); Glucose 103 mg/dL (65-115); Osmolality Calculated 282 mOsm/kg (285-295); Sodium 136 mmol/L (136-145)
[2024-03-17 05:42] LABS: Creatinine Clr Calc Pharmacy 92.9587
[2024-03-17] MEDS: spironolactone 25 mg Tablet PO (07:59)
[2024-03-17] MEDS: sennosides-docusate Tablet 1 TAB PO (07:59)
[2024-03-17] MEDS: hyDRALAzine 25 mg Tablet PO (07:59)
[2024-03-17] MEDS: amlodipine 5 mg Tablet PO (07:59)
--- NOTE | 2024-03-17 11:23 | P.PN_ITS ---
Subjective 2 Subjective: Spoke with [facility] :-did not have any beds at least 5-day hold at the moment at medical floor I have reached out to [facility] Awaiting callback Patient is wanting me to reach out to [facility] before trying [facility] is concerned that his will not be able to drive that far Vitals/I&O/Wt Last Vital Signs Temp 97.4 F L 03/17/24 08:00 Pulse 77 03/17/24 08:28 Resp 16 03/17/24 08:28 BP 165/84 03/17/24 08:00 Pulse Ox 94 03/17/24 08:28 O2 Del Method Room Air 03/17/24 08:28 03/16/24 03/17/24 03/17/24 22:59 06:59 14:59 Intake Total 120 / 120 240 / 360 360 / 360 Output Total 1200 / 1200 300 / 1500 Balance -1080 / -1080 -60 / -1140 360 / 360 Weight last 48 hrs Weight 96.207 kg Weight 95.98 kg Physical Exam 2 Narrative: Settings comfortably, left leg covered with dressing Hemodynamically stable CBC BMP unremarkable No active distress Awake and alert nonfocal neuroexam S1, S2 Hypertensive Currently on room air Urinary Catheter Management: Miller: Cath Placed During This Visit: no Reason for Continuing Indwelling Catheter: Other Data 03/17/24 04:29 03/17/24 04:29 A&P Assessment and plan (1) Malignant neoplasm of bladder neck: (2) Metastatic cancer to bone: (3) Pathologic fracture of tibia and fibula: (4) Failed back syndrome, lumbar: (5) COPD (chronic obstructive pulmonary disease) with emphysema: (6) Abdominal lymphadenopathy: (7) CHF (congestive heart failure): Qualifiers: Heart failure type: systolic Heart failure chronicity: chronic Qualified Code(s): I50.22 - Chronic systolic (congestive) heart failure Plan Records received from Dr. Choudhury Patient has history of transitional cell cancer diagnosed in 2017, has complicated urological malignancy he was deemed clear of cancer until recently when recent biopsy showed minute cluster of atypical cells, biopsy was taken of for atypical 1.5 cm area around the bladder which was visualized on cystoscopy Significant lymphadenopathy with concern for mets in the small bowel however bone scan has not shown any other metastatic lesions other than tibia We reach out to oncology orthopedics at the [facility], Dr. Byrd has recommended transfer at this point Patient is hypertensive adjust antihypertensive regimen Continue opioids along bowel regimen Eliquis on hold Will add DVT prophylaxis Patient is hemodynamically stable Awaiting acceptance before transfer [facility] has a 5-day hold, I am reaching out to [facility] today, awaiting callback Attestations 2 Medical Necessity Statement*: Continue medical management Diagnoses Malignant neoplasm of bladder neck C67.5 Metastatic cancer to bone C79.51 Pathologic fracture of tibia and fibula M84.469A Failed back syndrome, lumbar M96.1 COPD (chronic obstructive pulmonary disease) with emphysema J43.9 Abdominal lymphadenopathy R59.0 Chronic systolic congestive heart failure I50.22 Heart failure type: systolic Heart failure chronicity: chronic
[2024-03-17] MEDS: oxyCODONE 5 mg IR Tab/Cap PO (12:00)
[2024-03-17] MEDS: heparin 5,000 unit/mL INJ 1 mL 5000 UNIT SUBCUT (12:00)
--- NOTE | 2024-03-17 13:58 | P.TS_ITS ---
Transfer Summary Providers Date of Admission: 03/12/24 15:24 Date of Discharge/Transfer: 03/17/24 Attending Provider at Admission: Ed Brush MD Attending Provider at Transfer: Ed Brush MD Primary Care Provider: Juanis Toledo MD Transfer Plans: Anticipated date of transfer: 03/17/24 . Additional transfer facility information: [facility] Orthopedic oncologist . 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 Brown in January 2019 he had PVP IVP for upper tract surveillance on 11/2020 which was normal last surveillance cystoscopy 02/12 with some mild erythema but determined clear. CT showed no metastatic changes bilateral renal cyst right greater than left unchanged from previous imaging. Patient Complaining of intermittent dysuria increased nocturia up to 5 times on bad nights, he was started on Flomax, he was given ciprofloxacin for prostatitis as well in the past, PCR grew Aerococcus. Cystoscopy 02/13 confirmed posterior wall erythema inflammatory versus malignant region approximately 1.5 cm in size on cystoscopy, he has normal upper tract imaging that is up-to-date with negative PCR, biopsy report requested from urology clinic, Dr. Choudhury urologist: It is showing atypical cells minimal clusters. Patient was admitted in the hospital for management evaluation of left leg swelling initially there was concern for cellulitis he was put on antibiotics, he was given steroids and ketorolac for possibility of gout his uric acid was 5.9 however [address] we requested CT scan of the leg it showed pathological fracture with lytic mass, there was concern for malignant metastatic lesions, whole body bone scan was requested which showed increased uptake left proximal tibia increased uptake noted on the ribs likely compatible with recent trauma with healing rib fractures. Orthopedic was consulted who recommended transfer for higher level of care because patient will need biopsy and then discussion regarding chemotherapy. Patient did not want to go to [place] he asked us to get in touch with the [facility] first in [place]. I reached out to [facility] Dr. Ibrahima Vo hospitalist accepted the patient to medical floor. [place] hospitalist has discussed this case with orthopedics at the hospital as per my phone conversation with them. At the time of discharge patient has normal CBC and BMP creatinine 0.6, hemoglobin stable. Patient is on room air with stable hemodynamics blood pressure 150/78 mmHg pulse 85, respirate 17, temp 97.8, currently on room air Please note we have held his Eliquis which he was taking for history of DVT. Last dose of Eliquis was on 03/13 We will send all the images via DVD Patient did not show any signs of DVT venous Doppler was done Here are the reports of all the images done during hospitalization. Bone scan was done 03/16 NM/NM bone scan whole body* [id number] IMPRESSION: 1. Diffuse increased bony activity in the proximal tibia corresponding to the CT and MRI findings suspicious for neoplasm or metastatic disease as previously described on this studies. Also consider osteomyelitis although less likely with the soft tissue component on MRI. 2. Multiple punctate foci of radiotracer activity in the bilateral ribs compatible with recent trauma and healing rib fractures. 3. No other suspicious foci of uptake Left leg MRI 03/14 Bones/joints: Field of view on this study includes from the level of the distal femoral condyles down to the distal tibial/fibular shafts. The tibial marrow space extending from the proximal metaphysis down to the edge of the [id number] (distal diaphysis) is replaced and mildly expanded by the presence of T1/T2 heterogenous and heterogenously enhancing mass; as seen better on the CT, there is a transversely oriented fracture through the proximal tibial diaphysis. The medial tibial cortex in the vicinity of the fracture demonstrates pronounced endosteal scalloping and cortical breakthrough, with extra cortical spread of mass seen to infiltrate the adjacent tibialis anterior , tibialis posterior and popliteus muscle bellies. There is also cortical breakthrough at the anteromedial cortex of the tibia with extracortical extent of enhancing mass into the subcutaneous fat of the anterior thomas. The subcutaneous fat and skin overlying the anterior thomas demonstrate edema and enhancement that is contiguous with the soft tissue mass, which may indicate malignant spread to the skin . A large portion of the mass centered at proximal tibial shaft (measuring roughly 36 x 100 mm) shows absence of any postcontrast enhancement, suggestive of a large necrotic component that occupies the medullary space and partially extends out into the tibialis anterior muscle belly. Partially imaged left knee demonstrates pronounced myxoid degenerative changes of the medial and lateral menisci without definite rikki meniscal tear seen on these limited images. Soft tissues: Nonspecific subcutaneous soft tissue swelling and edema involving the posterior aspect of the distal thigh, as well as the medial and lateral aspects of the mid calf region. MR/MR lower leg LT wo/w con [id number] IMPRESSION: Expansile mass centered at the proximal tibial shaft medullary space as described, including a large necrotic component, demonstrating cortical breakthrough with mass infiltration of the surrounding calf musculature and possible extension to the skin surface as detailed above. Transversely oriented nondisplaced pathologic fracture at the proximal tibial diaphysis. CT abdomen pelvis chest 03/13 CT/[place] [id number] IMPRESSION: 1. Noncalcified pulmonary nodules. Recommend CT Chest at 3-6 months. IMPRESSION: 1. New irregular thickening of the gastric antral wall and pylorus, possibly extending into the 1st duodenal loop could be inflammatory or neoplastic. Upper endoscopy is recommended as this could be malignant. 2. Large amount of new para-aortic, pericaval, and left iliac lymphadenopathy is suspicious for metastatic disease. 3. Consider acute cholecystitis in the proper clinical setting. 4. Possible cystitis. 5. Additional details as above. Unchanged. Lower extremities CT 03/13 CT/CT lower leg LT w con [id number] IMPRESSION: 1. Lytic lesion in the proximal tibial diaphysis suspicious for neoplasm (primary bone neoplasm or metastasis). There is cortical thinning with a minimally displaced, comminuted fracture involving the proximal fibular diaphysis. The intramedullary mass appears to extend through the cortex at site of fractures. 2. Subcutaneous edema and wispy subcutaneous hemorrhage along the anterior and lateral knee/leg. There is more circumferential subcutaneous edema involving the distal lower leg and ankle. Physical Exam Narrative: Settings comfortably, left leg covered with dressing Hemodynamically stable No active distress Awake and alert nonfocal neuroexam S1, S2 Hypertensive Currently on room air Urinary Catheter Management: Miller: Cath Placed During This Visit: no Reason for Continuing Indwelling Catheter: Other TS Data Studies Completed and Pending Pending at discharge Category Date Time Status STEWART Profile Rheumatology Routine Lab 03/12/24 18:35 Results Blood Culture Stat Lab 03/12/24 12:30 Results SPEP [Total Protein Electrophoresis] Routine Lab 03/13/24 11:48 Results Urine Protein Electrop Random Routine Lab 03/13/24 12:18 Results Completed Studies During Hospitalization Category Date Time Status CT chest abdomen pelvis [[place] [id number] Cat Scan 03/13/24 11:48 Completed ] Routine CT lower leg LT w con [id number] Routine Cat Scan 03/13/24 06:52 Completed XR foot LT min 3V* [id number] Stat Exams 03/12/24 12:18 Completed XR knee LT 3V* [id number] Stat Exams 03/12/24 12:18 Completed XR ribs RT mn 3V w CXR1V [id number] Stat Exams 03/12/24 14:42 Completed XR tibia fibula LT 2V [id number] Stat Exams 03/12/24 12:18 Completed MR lower leg LT wo/w con [id number] Routine MRI 03/14/24 11:55 Completed NM bone scan whole body* [id number] Routine Nuc Med 03/16/24 12:13 Completed US venous duplex lower extremity LT [CV venous duplex Ultrasound 03/12/24 12:19 [place] [id number]] Stat Laboratory Last Values WBC 8.91 10^3/uL (3.29-11.43) 03/17/24 04:29 RBC 4.79 10^6/uL (3.85-5.65) 03/17/24 04:29 Hgb 14.50 g/dL (11.27-16.99) 03/17/24 04:29 Hct 44.2 % (37-53) 03/17/24 04:29 MCV 92.3 fl (82-101) 03/17/24 04:29 MCH 30.3 pg (27-33) 03/17/24 04:29 MCHC 32.8 g/dL (30-55) 03/17/24 04:29 RDW 13.4 % (12.1-15.1) 03/17/24 04:29 Plt Count 436 10^3/cmm (157-399) H 03/17/24 04:29 MPV 9.8 fL (7.4-10.4) 03/17/24 04:29 Neut % (Auto) 72.9 % 03/17/24 04:29 Lymph % (Auto) 13.1 % 03/17/24 04:29 Citrus % (Auto) 9.9 % 03/17/24 04:29 Eos % (Auto) 2.8 % 03/17/24 04:29 Baso % (Auto) 0.7 % 03/17/24 04:29 Neut # (Auto) 6.50 10^3/uL (1.8-7.7) 03/17/24 04:29 Lymph # (Auto) 1.2 10^3/uL (0.8-4.8) 03/17/24 04:29 Citrus # (Auto) 0.9 10^3/uL (0.2-0.9) 03/17/24 04:29 Eos # (Auto) 0.3 10^3/uL (0.0-0.8) 03/17/24 04:29 Baso # (Auto) 0.1 10^3/uL (0.0-0.1) 03/17/24 04: Nucleated RBC % (auto) 0 % 03/17/24 04: Nucleated RBCs # 0.0 /100WBC 03/17/24 04:29 ESR 90 mm/hr (0-10) H 03/12/24 18:35 Sodium 136 mmol/L (136-145) 03/17/24 04:29 Potassium 4.0 mmol/L (3.5-5.1) 03/17/24 04: Chloride 100 mmol/L (98-107) 03/17/24 04: Carbon Dioxide 25 mmol/L (22-29) 03/17/24 04:29 Anion Gap 15.0 (5-19) 03/17/24 04:29 BUN 13 mg/dL (8-23) 03/17/24 04:29 Creatinine 0.6 mg/dL (0.7-1.2) L 03/17/24 04:29 GFR Calculation Not Reportable 03/17/24 04:29 Glucose 103 mg/dL (65-115) 03/17/24 04:29 Estimat Average Glucose 111 03/12/24 12:33 Hemoglobin A1c 5.5 % (4.0-6.0) 03/12/24 12:33 Calculated Osmolality 282 mOsm/kg (285-295) L 03/17/24 04:29 Lactic Acid 1.0 mmol/L (0.5-2.2) 03/12/24 15:03 Uric Acid 5.9 mg/dL (3.4-7.0) 03/12/24 12:33 Calcium 8.6 mg/dL (8.5-10.5) 03/17/24 04:29 Magnesium 2.5 mg/dL (1.7-2.3) H 03/13/24 04:22 Total Bilirubin 0.6 mg/dL (0.15-1.2) 03/12/24 12:33 AST 30 U/L (0-40) 03/12/24 12:33 ALT 27 U/L (0-41) 03/12/24 12:33 Alkaline Phosphatase 150 U/L (40-130) H 03/12/24 12:33 C-Reactive Protein 96.5 mg/L (0.0-4.9) H 03/13/24 04:22 NT-Pro-B Natriuret Pep 247 pg/mL (0-450) 03/12/24 12:33 Total Protein 7.3 g/dL (6.1-8.1) 03/12/24 18:35 Albumin 3.4 g/dL (3.5-5.2) L 03/12/24 12:33 Globulin 4.5 g/dL (1.3-4.6) 03/12/24 12:33 Procalcitonin 0.12 ng/mL (0-0.5) 03/12/24 12:33 PTH Intact 43.3 pg/mL (15-65) 03/13/24 04:22 Calcium (PTH Intact) 8.6 mg/dL (8.5-10.5) 03/13/24 04:22 Ur Random Creatinine 80 mg/dL (20-320) 03/13/24 12:18 U Random Total Protein 37 mg/dL (5-25) H 03/13/24 12:18 Protein/Creatinin Ratio 463 mg/g creat (25-148) H 03/13/24 12:18 Protein/Creat Ratio 24h 0.463 (0.025-0.148) H 03/13/24 12:18 Rheumatoid Factor 13.0 IU/mL (0-14) 03/12/24 18:35 STEWART Screen Cancelled 03/12/24 18:35 STEWART Titer Cancelled 03/12/24 18:35 STEWART Titer 2 Cancelled 03/12/24 18:35 STEWART Titer 3 Cancelled 03/12/24 18:35 STEWART Pattern Cancelled 03/12/24 18:35 STEWART Pattern 2 Cancelled 03/12/24 18:35 STEWART Pattern 3 Cancelled 03/12/24 18:35 STEWART IFA Animal Tis Res Negative (NEGATIVE) 03/12/24 18:35 SHERMAN-1 Antibody <1.0 neg AI (<1.0 NEG) 03/12/24 18:35 SS-A Antibody <1.0 neg AI (<1.0 NEG) 03/12/24 18:35 SS-B Antibody <1.0 neg AI (<1.0 NEG) 03/12/24 18:35 Sm (Chavez) Antibody <1.0 neg AI (<1.0 NEG) 03/12/24 18:35 MEDICAL COLLECTIONS SPECIALIST Antibody <1.0 neg AI (<1.0 NEG) 03/12/24 18:35 Scl-70 Antibody <1.0 neg AI (<1.0 NEG) 03/12/24 18:35 Anti-ds DNA IgG Ab Cancelled 03/12/24 18:35 Centromere B Antibody <1.0 neg AI (<1.0 NEG) 03/12/24 18:35 Mitochon/Sm Musc Ab Titr Cancelled 03/12/24 18:35 Thyroid Peroxidase Ab 1 IU/mL (<9) 03/12/24 18:35 Mitochondrial DNA Scrn Cancelled 03/12/24 18:35 Radiology Impressions Foot X-Ray 03/12/24 12:18 IMPRESSION: 1. Dorsal foot soft tissue edema 2. Negative for acute bony abnormality Knee X-Ray 03/12/24 12:18 IMPRESSION: No acute findings. Tibia/Fibula X-Ray 03/12/24 12:18 IMPRESSION: 1. Nonspecific lytic appearing bone lesion in the proximal shaft of the tibia 2. Otherwise negative examination. Ribs X-Ray 03/12/24 14:42 IMPRESSION: 1. Negative for acute bright rib bony abnormality. . 2. There is compression fracture with kyphoplasty L1 vertebral body . 3. Chronic deformity right 8th posterior rib Lower Extremity CT 03/13/24 06:52 IMPRESSION: 1. Lytic lesion in the proximal tibial diaphysis suspicious for neoplasm (primary bone neoplasm or metastasis). There is cortical thinning with a minimally displaced, comminuted fracture involving the proximal fibular diaphysis. The intramedullary mass appears to extend through the cortex at site of fractures. 2. Subcutaneous edema and wispy subcutaneous hemorrhage along the anterior and lateral knee/leg. There is more circumferential subcutaneous edema involving the distal lower leg and ankle. Chest/Abdomen/Pelvis CT 03/13/24 11:48 IMPRESSION: 1. Noncalcified pulmonary nodules. Recommend CT Chest at 3-6 months. IMPRESSION: 1. New irregular thickening of the gastric antral wall and pylorus, possibly extending into the 1st duodenal loop could be inflammatory or neoplastic. Upper endoscopy is recommended as this could be malignant. 2. Large amount of new para-aortic, pericaval, and left iliac lymphadenopathy is suspicious for metastatic disease. 3. Consider acute cholecystitis in the proper clinical setting. 4. Possible cystitis. 5. Additional details as above. Unchanged. Lower Extremity MRI 03/14/24 11:55 IMPRESSION: Expansile mass centered at the proximal tibial shaft medullary space as described, including a large necrotic component, demonstrating cortical breakthrough with mass infiltration of the surrounding calf musculature and possible extension to the skin surface as detailed above. Transversely oriented nondisplaced pathologic fracture at the proximal tibial diaphysis. Bone Scan Nuclear Medicine 03/16/24 12:13 IMPRESSION: 1. Diffuse increased bony activity in the proximal tibia corresponding to the CT and MRI findings suspicious for neoplasm or metastatic disease as previously described on this studies. Also consider osteomyelitis although less likely with the soft tissue component on MRI. 2. Multiple punctate foci of radiotracer activity in the bilateral ribs compatible with recent trauma and healing rib fractures. 3. No other suspicious foci of uptake Recent Clincial Data Last Vital Signs Temp 97.8 F 03/17/24 12:00 Pulse 85 03/17/24 12:00 Resp 17 03/17/24 12:00 BP 150/78 03/17/24 12:00 Pulse Ox 96 03/17/24 12:00 O2 Del Method Room Air 03/17/24 08:28 Vital Signs Temp Pulse Resp BP Pulse Ox O2 Del Method 03/17/24 12:00 97.8 F 85 17 150/78 96 03/17/24 08:28 77 16 94 Room Air 03/17/24 08:00 97.4 F L 75 17 165/84 95 03/17/24 04:00 99.4 F 76 17 152/79 92 03/17/24 02:46 18 Intake & Output/Weight 03/15/24 03/16/24 03/17/24 06/26/24 06:59 06:59 06:59 06:59 Intake Total 840 / 840 1300 / 1300 360 / 360 480 / 480 Output Total 1800 / 1800 1650 / 1650 1500 / 1500 Balance -960 / -960 -350 / -350 -1140 / -1140 480 / 480 Weight 96.661 kg 95.98 kg 96.207 kg Vitals Last Vital Signs Temp 97.8 F 03/17/24 12:00 Pulse 85 03/17/24 12:00 Resp 17 03/17/24 12:00 BP 150/78 03/17/24 12:00 Pulse Ox 96 03/17/24 12:00 O2 Del Method Room Air 03/17/24 08:28 TS Medications Medications Acetaminophen (Acetaminophen 500 Mg Tablet) 500 mg PO Q4H PRN PRN Reason: fever Albuterol/Ipratropium (Ipratropium-Albuterol 3 Ml Neb) 3 ml INHALATION Q6H PRN PRN Reason: SHORTNESS OF BREATH Amlodipine Besylate (Amlodipine 5 Mg Tablet) 5 mg PO DAILY [facility] Last Admin: 03/17/24 07:59 Dose: 5 mg Apixaban (Apixaban 5 Mg Tablet) 2.5 mg PO BID [facility] Last Admin: 03/13/24 09:25 Dose: 2.5 mg Gabapentin (Gabapentin 300 Mg Capsule) 600 mg PO TID PRN PRN Reason: pain Heparin Sodium (Porcine) (Heparin 5,000 Unit/Ml Inj 1 Ml) 5,000 unit SUBCUT Q12H [facility] Last Admin: 03/17/24 12:00 Dose: 5,000 unit Hydralazine HCl (Hydralazine 20 Mg/Ml Inj 1 Ml) 5 mg IVP Q4H PRN PRN Reason: bp>180/100 Hydralazine HCl (Hydralazine 25 Mg Tablet) 25 mg PO TID [facility] Last Admin: 03/17/24 07:59 Dose: 25 mg Hydromorphone HCl (Hydromorphone 1 Mg/Ml Inj 1 Ml) 0.4 mg IVP Q4H PRN PRN Reason: SEVERE PAIN Last Admin: 03/17/24 08:07 Dose: 0.4 mg Metoprolol Tartrate (Metoprolol Tartrate 25 Mg Tablet) 25 mg PO BID@0900,2100 [facility] Morphine Sulfate (Morphine 4 Mg/Ml Sdv 1 Ml) 2 mg IVP Q4H PRN PRN Reason: SEVERE PAIN Last Admin: 03/17/24 02:46 Dose: 2 mg Ondansetron HCl (Ondansetron 2 Mg/Ml Sdv 2 Ml) 4 mg IVP Q6H PRN PRN Reason: NAUSEA AND VOMITING Ondansetron HCl (Ondansetron 2 Mg/Ml Sdv 2 Ml) 4 mg IVP Q6H PRN PRN Reason: NAUSEA AND VOMITING Oxycodone HCl (Oxycodone 5 Mg Ir Tab/Cap) 5 mg PO Q6H PRN PRN Reason: MODERATE PAIN Last Admin: 03/17/24 12:00 Dose: 5 mg Potassium Chloride (Potassium Chloride Er 20 Meq Tablet) 40 meq PO DAILY [facility] Last Admin: 03/13/24 09:24 Dose: 40 meq Senna/Docusate Sodium (Sennosides-Docusate Tablet) 1 tab PO DAILY [facility] Last Admin: 03/17/24 07:59 Dose: 1 tab Spironolactone (Spironolactone 25 Mg Tablet) 25 mg PO DAILY [facility] Last Admin: 03/17/24 07:59 Dose: 25 mg Discontinued Medications Enoxaparin Sodium (Enoxaparin 40 Mg/0.4 Ml Syringe) 40 mg SUBCUT Q24H [facility] Furosemide (Furosemide 10 Mg/Ml Sdv 2ml) 20 mg IVP ONCE ONE Stop: 03/12/24 16:22 Last Admin: 03/12/24 17:10 Dose: 20 mg Gadobenate Dimeglumine (Gadobenate Dimeglumine 20 Ml Vial) 0 ml IV ONCE ONE Stop: 03/14/24 10:23 Last Admin: 03/14/24 10:22 Dose: 20 ml Vancomycin HCl 1,000 mg/ (Sodium Chloride) 250 mls @ 250 mls/hr IV ONCE ONE; Protocol Stop: 03/12/24 15:43 Last Infusion: 03/12/24 21:45 Dose: Infused Piperacillin Sod/Tazobactam (Sod 3.375 gm/ Sodium Chloride) 50 mls @ 12.5 mls /hr IV Q8H [facility]; Protocol Last Infusion: 03/13/24 11:56 Dose: Infused Vancomycin/PEG/NADA/Lysine/Water (Vancocin) 1,500 mg in 300 mls @ 200 mls/hr IV Q12H [facility] Last Admin: 03/12/24 22:08 Dose: Not Given Vancomycin/PEG/NADA/Lysine/Water (Vancocin) 1,500 mg in 300 mls @ 200 mls/hr IV Q12H [facility] Last Infusion: 03/13/24 11:56 Dose: Infused Iohexol (Iohexol 350 Mg/Ml 500 Ml Btl (Per Ml)) 0 ml IV ONCE ONE Stop: 03/13/24 09:14 Last Admin: 03/13/24 09:13 Dose: 100 ml Ketorolac Tromethamine (Ketorolac 30 Mg/Ml Inj) 15 mg IVP Q6H TERE Stop: 03/17/24 17:44 Last Admin: 03/13/24 05:36 Dose: 15 mg Levofloxacin (Levofloxacin 750 Mg Tablet) 750 mg PO DAILY@0600 [facility]; Protocol Last Admin: 03/17/24 05:25 Dose: 750 mg Oxycodone HCl (Oxycodone 5 Mg Ir Tab/Cap) 10 mg PO ONCE ONE Stop: 03/12/24 12:35 Last Admin: 03/12/24 12:52 Dose: 10 mg Oxycodone HCl (Oxycodone 5 Mg Ir Tab/Cap) 5 mg PO Q6H PRN PRN Reason: MODERATE PAIN Last Admin: 03/16/24 15:38 Dose: 5 mg Prednisone (Prednisone 20 Mg Tablet) 60 mg PO DAILY [facility] Last Admin: 03/13/24 09:25 Dose: 60 mg Allergies insect venom Adverse Reaction (Unknown, Verified 03/12/24 11:53) Unknown [facility]INGS Home Medications ibuprofen 200 mg tablet 200 - 600 mg PO Q8H PRN Pain 09/17/19 [History Confirmed 03/12/24] ipratropium bromide 17 mcg/actuation HFA aerosol inhaler (Atrovent HFA) 2 puff inhalation QID 09/17/19 [History Confirmed 03/12/24] theophylline 400 mg tablet,extended release 24 hr 400 mg PO Q12H 09/17/19 [History Confirmed 03/12/24] acetaminophen 500 mg tablet (Tylenol Extra Strength) 1,000 mg PO 6XD PRN Pain 09/24/19 [History Confirmed 03/12/24] cyclobenzaprine 10 mg tablet 10 mg PO TID 90 days #270 tabs 10/06/21 [Rx Confirmed 03/12/24] ascorbic acid (vitamin C) 1,000 mg tablet 1,000 mg PO BID 01/24/22 [History Confirmed 03/12/24] cholecalciferol (vitamin D3) 125 mcg (5,000 unit) capsule 125 mcg PO DAILY 01/24/22 [History Confirmed 03/12/24] Bone Growth Stimulator E0748 #1 ea 02/28/22 [Rx Confirmed 03/12/24] amlodipine 5 mg tablet 5 mg PO DAILY #30 tabs 03/19/22 [Rx Confirmed 03/12/24] hydrocortisone 2.5 % topical cream with perineal applicator (Anusol-HC) 1 applic TN BID PRN hemorrhoids #30 grams 06/13/22 [Rx Confirmed 03/12/24] albuterol sulfate 90 mcg/actuation aerosol inhaler 2 puff inhalation Q6H PRN Shortness Of Breath 04/24/23 [History Confirmed 03/12/24] gabapentin 600 mg tablet 600 mg PO TID PRN pain 04/24/23 [History Confirmed 03/12/24] spironolactone 25 mg tablet (Aldactone) 25 mg PO DAILY #30 tabs 01/24/24 [Rx Confirmed 03/12/24] apixaban 5 mg tablet (Eliquis) 2.5 mg PO BID 03/12/24 [History Confirmed 03/12/24] dextromethorphan-guaifenesin 10 mg-100 mg/5 mL oral syrup 5 ml PO Q4H PRN COUGH AND CONGESTION 03/12/24 [History Confirmed 03/12/24] diphenhydramine HCl 25 mg capsule (Benadryl) 25 mg PO TID PRN ALLERGIES 03/12/24 [History Confirmed 03/12/24] ferrous sulfate 325 mg (65 mg iron) tablet 325 mg PO DAILY 03/12/24 [History Confirmed 03/12/24] lidocaine 5 % topical patch 1 patch topical DAILY 03/12/24 [History Confirmed 03/12/24] polyethylene glycol 3350 17 gram/dose oral powder (Miralax) See Rx Instructions .Route .COMPLEX CONSTIPATION 03/12/24 [History Confirmed 03/12/24] Discharge Plan Discharge Patient Disposition: Xfer Other Condition: Stable Prescriptions: No Action Atrovent HFA 17 mcg/actuation HFA aerosol inhaler 2 puff INHALATION QID ibuprofen 200 mg tablet 200 - 600 mg PO Q8H PRN (Reason: Pain) theophylline 400 mg tablet extended release 24 hr 400 mg PO Q12H acetaminophen [Tylenol Extra Strength] 500 mg tablet 1,000 mg PO 6XD PRN (Reason: Pain) cyclobenzaprine 10 mg tablet 10 mg PO TID 90 Days Qty: 270 0RF cholecalciferol (vitamin D3) 125 mcg (5,000 unit) capsule 125 mcg PO DAILY ascorbic acid (vitamin C) 1,000 mg tablet 1,000 mg PO BID gabapentin 600 mg tablet 600 mg PO TID PRN (Reason: pain) albuterol sulfate 90 mcg/actuation HFA aerosol inhaler 2 puff inhalation Q6H PRN (Reason: Shortness Of Breath) (DME) Bone Growth Stimulator E0748 See Rx Instructions .Route .MEDSUPPLY Qty: 1 0RF Rx Instructions: As directed spironolactone [Aldactone] 25 mg tablet 25 mg PO DAILY Qty: 30 6RF amlodipine 5 mg tablet 5 mg PO DAILY Qty: 30 0RF hydrocortisone [Anusol-HC] 2.5 % cream with perineal applicator 1 applic TN BID PRN (Reason: hemorrhoids) Qty: 30 1RF Guaifenesin DM 10-100 mg/5 mL Syrup 5 ml PO Q4H PRN (Reason: COUGH AND CONGESTION) Benadryl 25 mg Capsule 25 mg PO TID PRN (Reason: ALLERGIES) ferrous sulfate 325 mg (65 mg iron) Tablet 325 mg PO DAILY lidocaine 5 % Adhesive Patch,Medicated 1 patch TOPICAL DAILY Rx Instructions: leave on most painful area for up to 12 hrs Miralax 17 gram/dose Powder See Rx Instructions .ROUTE .COMPLEX Rx Instructions: MIX 1 CAPFUL IN 8 OZ LIQUID AND DRINK ENTIRE LIQUID ONCE DAILY TO PREVENT CONSTIPATION. Eliquis 5 mg Tablet 2.5 mg PO BID Referrals: Juanis Toledo MD [Primary Care Provider] - Activity Restrictions/Additional Instructions: Follow-up with orthopedic oncology at transferred facility. Transfer Attestations Time Spent in Transfer Care: greater than 30 min Quality Metrics Clinical Quality Measures [ No reported AMI, CVA or VTE this stay] Coding Level of Care Code Acute Code for Chg Fwd Diagnoses Pathologic fracture of tibia and fibula M84.469A Malignant neoplasm of bladder neck C67.5 COPD (chronic obstructive pulmonary disease) with emphysema J43.9
--- NOTE | 2024-03-17 16:06 | PM.DCS ---
Discharge Providers Date of Admission: 03/12/24 15:24 Date of Discharge: March 19, 2024 Attending Provider at Admission: Ed Brush MD Attending Provider at Discharge: Ed Brush MD Primary Care Provider: Juanis Toledo MD Diagnoses at Discharge Discharge Diagnosis (1) Pathologic fracture of tibia and fibula: Status: Inactive (2) Malignant neoplasm of bladder neck: Status: Inactive (3) COPD (chronic obstructive pulmonary disease) with emphysema: Status: Inactive Reason for Visit Reason for Visit: fall, left leg pain Brief History: [facility] Course Hospital Course 78-year-old male with history of urinary bladder transitional cell cancer high-grade diagnosed [place] [address] Brown in January 2019 he had PVP IVP for upper tract surveillance on 11/2020 which was normal last surveillance cystoscopy 02/12 with some mild erythema but determined clear. CT showed no metastatic changes bilateral renal cyst right greater than left unchanged from previous imaging. Patient Complaining of intermittent dysuria increased nocturia up to 5 times on bad nights, he was started on Flomax, he was given ciprofloxacin for prostatitis as well in the past, PCR grew Aerococcus. Cystoscopy 02/13 confirmed posterior wall erythema inflammatory versus malignant region approximately 1.5 cm in size on cystoscopy, he has normal upper tract imaging that is up-to-date with negative PCR, biopsy report requested from urology clinic, Dr. Choudhury urologist: It is showing atypical cells minimal clusters. Patient was admitted in the hospital for management evaluation of left leg swelling initially there was concern for cellulitis he was put on antibiotics, he was given steroids and ketorolac for possibility of gout his uric acid was 5.9 however [address] we requested CT scan of the leg it showed pathological fracture with lytic mass, there was concern for malignant metastatic lesions, whole body bone scan was requested which showed increased uptake left proximal tibia increased uptake noted on the ribs likely compatible with recent trauma with healing rib fractures. Orthopedic was consulted who recommended transfer for higher level of care because patient will need biopsy and then discussion regarding chemotherapy. Patient did not want to go to [place] he asked us to get in touch with the [facility] first in [place]. I reached out to [facility] in [place] Dr. Ibrahima Vo hospitalist accepted the patient to medical floor. [place] hospitalist has discussed this case with orthopedics at the hospital as per my phone conversation with them. At the time of discharge patient has normal CBC and BMP creatinine 0.6, hemoglobin stable. Patient is on room air with stable hemodynamics blood pressure 150/78 mmHg pulse 85, respirate 17, temp 97.8, currently on room air Please note we have held his Eliquis which he was taking for history of DVT. Last dose of Eliquis was on 03/13 We will send all the images via DVD Patient did not show any signs of DVT venous Doppler was done Here are the reports of all the images done during hospitalization. Bone scan was done 03/16 NM/NM bone scan whole body* [id number] IMPRESSION: 1. Diffuse increased bony activity in the proximal tibia corresponding to the CT and MRI findings suspicious for neoplasm or metastatic disease as previously described on this studies. Also consider osteomyelitis although less likely with the soft tissue component on MRI. 2. Multiple punctate foci of radiotracer activity in the bilateral ribs compatible with recent trauma and healing rib fractures. 3. No other suspicious foci of uptake Left leg MRI 03/14 Bones/joints: Field of view on this study includes from the level of the distal femoral condyles down to the distal tibial/fibular shafts. The tibial marrow space extending from the proximal metaphysis down to the edge of the gsavp-sm-bgda (distal diaphysis) is replaced and mildly expanded by the presence of T1/T2 heterogenous and heterogenously enhancing mass; as seen better on the CT, there is a transversely oriented fracture through the proximal tibial diaphysis. The medial tibial cortex in the vicinity of the fracture demonstrates pronounced endosteal scalloping and cortical breakthrough, with extra cortical spread of mass seen to infiltrate the adjacent tibialis anterior , tibialis posterior and popliteus muscle bellies. There is also cortical breakthrough at the anteromedial cortex of the tibia with extracortical extent of enhancing mass into the subcutaneous fat of the anterior thomas. The subcutaneous fat and skin overlying the anterior thomas demonstrate edema and enhancement that is contiguous with the soft tissue mass, which may indicate malignant spread to the skin . A large portion of the mass centered at proximal tibial shaft (measuring roughly 36 x 100 mm) shows absence of any postcontrast enhancement, suggestive of a large necrotic component that occupies the medullary space and partially extends out into the tibialis anterior muscle belly. Partially imaged left knee demonstrates pronounced myxoid degenerative changes of the medial and lateral menisci without definite rikki meniscal tear seen on these limited images. Soft tissues: Nonspecific subcutaneous soft tissue swelling and edema involving the posterior aspect of the distal thigh, as well as the medial and lateral aspects of the mid calf region. MR/MR lower leg LT wo/w con [id number] IMPRESSION: Expansile mass centered at the proximal tibial shaft medullary space as described, including a large necrotic component, demonstrating cortical breakthrough with mass infiltration of the surrounding calf musculature and possible extension to the skin surface as detailed above. Transversely oriented nondisplaced pathologic fracture at the proximal tibial diaphysis. CT abdomen pelvis chest 03/13 CT/[place] [id number] IMPRESSION: 1. Noncalcified pulmonary nodules. Recommend CT Chest at 3-6 months. IMPRESSION: 1. New irregular thickening of the gastric antral wall and pylorus, possibly extending into the 1st duodenal loop could be inflammatory or neoplastic. Upper endoscopy is recommended as this could be malignant. 2. Large amount of new para-aortic, pericaval, and left iliac lymphadenopathy is suspicious for metastatic disease. 3. Consider acute cholecystitis in the proper clinical setting. 4. Possible cystitis. 5. Additional details as above. Unchanged. Lower extremities CT 03/13 CT/CT lower leg LT w con [id number] IMPRESSION: 1. Lytic lesion in the proximal tibial diaphysis suspicious for neoplasm (primary bone neoplasm or metastasis). There is cortical thinning with a minimally displaced, comminuted fracture involving the proximal fibular diaphysis. The intramedullary mass appears to extend through the cortex at site of fractures. 2. Subcutaneous edema and wispy subcutaneous hemorrhage along the anterior and lateral knee/leg. There is more circumferential subcutaneous edema involving the distal lower leg and ankle. Physical Exam Urinary Catheter Management: Miller: Cath Placed During This Visit: no Reason for Continuing Indwelling Catheter: Other Discharge Data Studies Completed and Pending Completed Studies During Hospitalization Category Date Time Status CT chest abdomen pelvis [[place] [id number] Cat Scan 03/13/24 11:48 Completed ] Routine CT lower leg LT w con [id number] Routine Cat Scan 03/13/24 06:52 Completed XR foot LT min 3V* [id number] Stat Exams 03/12/24 12:18 Completed XR knee LT 3V* [id number] Stat Exams 03/12/24 12:18 Completed XR ribs RT mn 3V w CXR1V [id number] Stat Exams 03/12/24 14:42 Completed XR tibia fibula LT 2V [id number] Stat Exams 03/12/24 12:18 Completed MR lower leg LT wo/w con [id number] Routine MRI 03/14/24 11:55 Completed NM bone scan whole body* [id number] Routine Nuc Med 03/16/24 12:13 Completed US venous duplex lower extremity LT [CV venous duplex Ultrasound 03/12/24 12:[place] [id number]] Stat Pending at discharge Category Date Time Status STEWART Profile Rheumatology Routine Lab 03/12/24 18:35 Results Radiology Impressions Foot X-Ray 03/12/24 12:18 IMPRESSION: 1. Dorsal foot soft tissue edema 2. Negative for acute bony abnormality Knee X-Ray 03/12/24 12:18 IMPRESSION: No acute findings. Tibia/Fibula X-Ray 03/12/24 12:18 IMPRESSION: 1. Nonspecific lytic appearing bone lesion in the proximal shaft of the tibia 2. Otherwise negative examination. Ribs X-Ray 03/12/24 14:42 IMPRESSION: 1. Negative for acute bright rib bony abnormality. . 2. There is compression fracture with kyphoplasty L1 vertebral body . 3. Chronic deformity right 8th posterior rib Lower Extremity CT 03/13/24 06:52 IMPRESSION: 1. Lytic lesion in the proximal tibial diaphysis suspicious for neoplasm (primary bone neoplasm or metastasis). There is cortical thinning with a minimally displaced, comminuted fracture involving the proximal fibular diaphysis. The intramedullary mass appears to extend through the cortex at site of fractures. 2. Subcutaneous edema and wispy subcutaneous hemorrhage along the anterior and lateral knee/leg. There is more circumferential subcutaneous edema involving the distal lower leg and ankle. Chest/Abdomen/Pelvis CT 03/13/24 11:48 IMPRESSION: 1. Noncalcified pulmonary nodules. Recommend CT Chest at 3-6 months. IMPRESSION: 1. New irregular thickening of the gastric antral wall and pylorus, possibly extending into the 1st duodenal loop could be inflammatory or neoplastic. Upper endoscopy is recommended as this could be malignant. 2. Large amount of new para-aortic, pericaval, and left iliac lymphadenopathy is suspicious for metastatic disease. 3. Consider acute cholecystitis in the proper clinical setting. 4. Possible cystitis. 5. Additional details as above. Unchanged. Lower Extremity MRI 03/14/24 11:55 IMPRESSION: Expansile mass centered at the proximal tibial shaft medullary space as described, including a large necrotic component, demonstrating cortical breakthrough with mass infiltration of the surrounding calf musculature and possible extension to the skin surface as detailed above. Transversely oriented nondisplaced pathologic fracture at the proximal tibial diaphysis. Bone Scan Nuclear Medicine 03/16/24 12:13 IMPRESSION: 1. Diffuse increased bony activity in the proximal tibia corresponding to the CT and MRI findings suspicious for neoplasm or metastatic disease as previously described on this studies. Also consider osteomyelitis although less likely with the soft tissue component on MRI. 2. Multiple punctate foci of radiotracer activity in the bilateral ribs compatible with recent trauma and healing rib fractures. 3. No other suspicious foci of uptake Laboratory Results WBC 8.91 10^3/uL (3.29-11.43) 03/17/24 04:29 RBC 4.79 10^6/uL (3.85-5.65) 03/17/24 04:29 Hgb 14.50 g/dL (11.27-16.99) 03/17/24 04:29 Hct 44.2 % (37-53) 03/17/24 04:29 MCV 92.3 fl (82-101) 03/17/24 04:29 MCH 30.3 pg (27-33) 03/17/24 04:29 MCHC 32.8 g/dL (30-55) 03/17/24 04:29 RDW 13.4 % (12.1-15.1) 03/17/24 04:29 Plt Count 436 10^3/cmm (157-399) H 03/17/24 04:29 MPV 9.8 fL (7.4-10.4) 03/17/24 04:29 Neut % (Auto) 72.9 % 03/17/24 04:29 Lymph % (Auto) 13.1 % 03/17/24 04:29 Gregory % (Auto) 9.9 % 03/17/24 04:29 Eos % (Auto) 2.8 % 03/17/24 04:29 Baso % (Auto) 0.7 % 03/17/24 04:29 Neut # (Auto) 6.50 10^3/uL (1.8-7.7) 03/17/24 04:29 Lymph # (Auto) 1.2 10^3/uL (0.8-4.8) 03/17/24 04:29 Gregory # (Auto) 0.9 10^3/uL (0.2-0.9) 03/17/24 04:29 Eos # (Auto) 0.3 10^3/uL (0.0-0.8) 03/17/24 04:29 Baso # (Auto) 0.1 10^3/uL (0.0-0.1) 03/17/24 04:29 Nucleated RBC % (auto) 0 % 03/17/24 04:29 Nucleated RBCs # 0.0 /100WBC 03/17/24 04:29 ESR 90 mm/hr (0-10) H 03/12/24 18:35 Sodium 136 mmol/L (136-145) 03/17/24 04:29 Potassium 4.0 mmol/L (3.5-5.1) 03/17/24 04: Chloride 100 mmol/L (98-107) 03/17/24 04: Carbon Dioxide 25 mmol/L (22-29) 03/17/24 04:29 Anion Gap 15.0 (5-19) 03/17/24 04:29 BUN 13 mg/dL (8-23) 03/17/24 04:29 Creatinine 0.6 mg/dL (0.7-1.2) L 03/17/24 04:29 GFR Calculation Not Reportable 03/17/24 04:29 Glucose 103 mg/dL (65-115) 03/17/24 04:29 Estimat Average Glucose 111 03/12/24 12:33 Hemoglobin A1c 5.5 % (4.0-6.0) 03/12/24 12:33 Calculated Osmolality 282 mOsm/kg (285-295) L 03/17/24 04:29 Lactic Acid 1.0 mmol/L (0.5-2.2) 03/12/24 15:03 Uric Acid 5.9 mg/dL (3.4-7.0) 03/12/24 12:33 Calcium 8.6 mg/dL (8.5-10.5) 03/17/24 04:29 Magnesium 2.5 mg/dL (1.7-2.3) H 03/13/24 04:22 Total Bilirubin 0.6 mg/dL (0.15-1.2) 03/12/24 12:33 AST 30 U/L (0-40) 03/12/24 12:33 ALT 27 U/L (0-41) 03/12/24 12:33 Alkaline Phosphatase 150 U/L (40-130) H 03/12/24 12:33 C-Reactive Protein 96.5 mg/L (0.0-4.9) H 03/13/24 04:22 NT-Pro-B Natriuret Pep 247 pg/mL (0-450) 03/12/24 12:33 Total Protein 7.3 g/dL (6.1-8.1) 03/12/24 18:35 Albumin 3.0 g/dL (3.8-4.8) L 03/12/24 18:35 Globulin 4.5 g/dL (1.3-4.6) 03/12/24 12:33 Fidto-1-Ihtrpjwar 0.5 g/dL (0.2-0.3) H 03/12/24 18:35 Ozifw-1-Grwyymirn 1.2 g/dL (0.5-0.9) H 03/12/24 18:35 Vreb-5-Olrbovcv 0.5 g/dL (0.4-0.6) 03/12/24 18:35 Spjm-4-Kouyjfpv 0.7 g/dL (0.2-0.5) H 03/12/24 18:35 Gamma Globulins 1.5 g/dL (0.8-1.7) 03/12/24 18:35 Abnorm Protein Band 1 Not Reportable 03/12/24 18:35 Procalcitonin 0.12 ng/mL (0-0.5) 03/12/24 12:33 PTH Intact 43.3 pg/mL (15-65) 03/13/24 04:22 Calcium (PTH Intact) 8.6 mg/dL (8.5-10.5) 03/13/24 04:22 Ur Random Creatinine 80 mg/dL (20-320) 03/13/24 12:18 Ur Random Albumin 100 % 03/13/24 12:18 U Random Total Protein 37 mg/dL (5-25) H 03/13/24 12:18 Protein/Creatinin Ratio 463 mg/g creat (25-148) H 03/13/24 12:18 Protein/Creat Ratio 24h 0.463 (0.025-0.148) H 03/13/24 12:18 U Random i-9-Kkwsrdqz % 0 % 03/13/24 12:18 U Random r-0-Pewupaxp % 0 % 03/13/24 12:18 U Random Beta Globulin 0 % 03/13/24 12:18 U Random Gamma Glob 0 % 03/13/24 12:18 U Abnormal Prot Band 1 Not Reportable 03/13/24 12:18 U Abnormal Prot Band 2 Not Reportable 03/13/24 12:18 U Abnormal Prot Band 3 Not Reportable 03/13/24 12:18 Urine PEP Interpret See note 03/13/24 12:18 Pro Electrophoresis Int See note 03/12/24 18:35 Rheumatoid Factor 13.0 IU/mL (0-14) 03/12/24 18:35 STEWART Screen Cancelled 03/12/24 18:35 STEWART Titer Cancelled 03/12/24 18:35 STEWART Titer 2 Cancelled 03/12/24 18:35 STEWART Titer 3 Cancelled 03/12/24 18:35 STEWART Pattern Cancelled 03/12/24 18:35 STEWART Pattern 2 Cancelled 03/12/24 18:35 STEWART Pattern 3 Cancelled 03/12/24 18:35 STEWART IFA Animal Tis Res Negative (NEGATIVE) 03/12/24 18:35 SHERMAN-1 Antibody <1.0 neg AI (<1.0 NEG) 03/12/24 18:35 SS-A Antibody <1.0 neg AI (<1.0 NEG) 03/12/24 18:35 SS-B Antibody <1.0 neg AI (<1.0 NEG) 03/12/24 18:35 Sm (Chavez) Antibody <1.0 neg AI (<1.0 NEG) 03/12/24 18:35 METAL BONDING PRESS OPERATOR Antibody <1.0 neg AI (<1.0 NEG) 03/12/24 18:35 Scl-70 Antibody <1.0 neg AI (<1.0 NEG) 03/12/24 18:35 Anti-ds DNA IgG Ab Cancelled 03/12/24 18:35 Centromere B Antibody <1.0 neg AI (<1.0 NEG) 03/12/24 18:35 Mitochon/Sm Musc Ab Titr Cancelled 03/12/24 18:35 Thyroid Peroxidase Ab 1 IU/mL (<9) 03/12/24 18:35 Complement C3c 179 mg/dL (82-185) 03/12/24 18:35 Complement C4c 23 mg/dL (15-53) 03/12/24 18:35 Mitochondrial DNA Scrn Cancelled 03/12/24 18:35 Vitals Last Vital Signs Temp 97.3 F L 03/17/24 17:59 Pulse 82 03/17/24 17:59 Resp 17 03/17/24 17:59 BP 185/93 03/17/24 17:59 Pulse Ox 93 03/17/24 17:59 O2 Del Method Room Air 03/17/24 08:28 Discharge Plan Discharge Patient Disposition: Left Against Medical Advice Condition: Stable Prescriptions: No Action Atrovent HFA 17 mcg/actuation HFA aerosol inhaler 2 puff INHALATION QID ibuprofen 200 mg tablet 200 - 600 mg PO Q8H PRN (Reason: Pain) theophylline 400 mg tablet extended release 24 hr 400 mg PO Q12H acetaminophen [Tylenol Extra Strength] 500 mg tablet 1,000 mg PO 6XD PRN (Reason: Pain) cyclobenzaprine 10 mg tablet 10 mg PO TID 90 Days Qty: 270 0RF cholecalciferol (vitamin D3) 125 mcg (5,000 unit) capsule 125 mcg PO DAILY ascorbic acid (vitamin C) 1,000 mg tablet 1,000 mg PO BID gabapentin 600 mg tablet 600 mg PO TID PRN (Reason: pain) albuterol sulfate 90 mcg/actuation HFA aerosol inhaler 2 puff inhalation Q6H PRN (Reason: Shortness Of Breath) (DME) Bone Growth Stimulator E0748 See Rx Instructions .Route .MEDSUPPLY Qty: 1 0RF Rx Instructions: As directed spironolactone [Aldactone] 25 mg tablet 25 mg PO DAILY Qty: 30 6RF amlodipine 5 mg tablet 5 mg PO DAILY Qty: 30 0RF hydrocortisone [Anusol-HC] 2.5 % cream with perineal applicator 1 applic OR BID PRN (Reason: hemorrhoids) Qty: 30 1RF Guaifenesin DM 10-100 mg/5 mL Syrup 5 ml PO Q4H PRN (Reason: COUGH AND CONGESTION) Benadryl 25 mg Capsule 25 mg PO TID PRN (Reason: ALLERGIES) ferrous sulfate 325 mg (65 mg iron) Tablet 325 mg PO DAILY lidocaine 5 % Adhesive Patch,Medicated 1 patch TOPICAL DAILY Rx Instructions: leave on most painful area for up to 12 hrs Miralax 17 gram/dose Powder See Rx Instructions .ROUTE .COMPLEX Rx Instructions: MIX 1 CAPFUL IN 8 OZ LIQUID AND DRINK ENTIRE LIQUID ONCE DAILY TO PREVENT CONSTIPATION. Eliquis 5 mg Tablet 2.5 mg PO BID Discharge Orders: Transfer Out of Facility (Order); Ordered 03/17/24 Ordered By: Ed Brush Referrals: Juanis Toledo MD [Primary Care Provider] - Activity Restrictions/Additional Instructions: Follow-up with orthopedic oncology at transferred facility. Discharge Attestations Time Spent in Discharge Care*: less than 30 min Quality Metrics Clinical Quality Measures [ No reported AMI, CVA or VTE this stay] Coding Level of Care Code Acute Code for Chg Fwd Diagnoses Pathologic fracture of tibia and fibula M84.469A Malignant neoplasm of bladder neck C67.5 COPD (chronic obstructive pulmonary disease) with emphysema J43.9
[2024-03-17] MEDS: ondansetron 2 mg/ML SDV 2 mL 4 MG IVP (16:08)
--- NOTE | 2024-03-17 17:15 | P.PNCC_ITS ---
Critical Care Event Note I was notified by the nursing staff that patient is trying to leave AMA. When I went in the room, patient's was at the bedside, patient was vomiting which resolved after 2 episode, patient was dressed up and ready to go, he was fixated on leaving against medical recommendations I asked the patient in particular what event in the hospital changed his mind to go home and leave against medical recommendations. Patient stated I am sick of staying in the hospital and want to spend some time with the family I bluntly told the patient that if he goes home he is taking a big risk because he is nonweightbearing for now, if he goes home he will end up with more pathological fractures that may be detrimental to the point it could kill him, he is already off anticoagulating agent he could develop thromboembolism, and considering long bone fracture fat embolism as well etc. other concern is: Things were kept hidden from Mr. Leigh. However when I asked Mr. Leigh to tell me about the discussion that took place on Saturday or day before he is able to tell me exactly what the plan was for that day. Obviously we had to wait till Saturday to get records from Dr. Choudhury's clinic about the biopsy report and then arrange transfer. Dr. Byrd spoke with [facility] orthopedic surgeon Dr. Levine who accepted the patient right away but waiting time was at least 5 days when I called transfer line. When I told the patient he asked me to reach out to [facility] which I did on Saturday. [facility] accepted him right away His is stating that she will not convince him to stay because that is his decision at this point. She is asking me to chop off his left leg. This statement caught me with surprise & I told her this is not how we are planning to manage his pathological fracture, amputation of the leg is not an optimal medical or surgical decision at this point. He does have lymphadenopathy as well which also needs to be further investigated with a PET scan. Will still need bone biopsy to know about the histopathological diagnosis before discussing chemo or radiotherapy. I spent 25+ minutes in the room, charge nurse was also present, I was trying to convince the patient to wait because he is already accepted at [facility], I did tell the patient that at least get his pathological fracture treated, whether or not he will go for chemoradiotherapy that is a secondary decision which can be dealt with later on but at least fixation of fracture would make him weightbearing on his left leg. Patient and his are both fixated on going home. Their main concern is we are not amputating his leg to get rid of the cancer. At the end of our meeting I tried to convince patient to stay at least 1 more day so we can do CT scan of abdomen pelvis because he was vomiting. He decided not to stay, I am asking Dr. Byrd to come talk with the patient and his to see if we can change her decision because at this point I am very concerned that patient will not do well at all and putting weight on his left leg will surely/definitely cause more complications in near future. Patient is stating that he is spending 1 night at home then he would ask his to drive him to [facility] because he is sure that they can chop off his leg. I do believe this conversation is critical at this point because patient is making a extremely bad decision. He does have capacity to make decisions for himself, is at the bedside as well. Patient himself is stating that they are a very stubborn family and would stick with the decision to go home for now. I tried my best to convince him to stay so we could take care of him, patient is articulating complete understanding of what kind of risk he is taking by leaving tonight. He also understands that his transfer process will be voided if he leaves AMA. The high probability of a clinically significant, sudden or life threatening deterioration of the patient's [] system(s) required my full and direct attention, intervention and personal management. The critical care time is as shown. This time is in addition to time spent performing any reported procedures but includes the following: [x] Data and vital sign review and interpretation [x] Patient assessment, examination and intervention [x] Documentation [x] Medication orders and management Critical Care Time Code activated: No Critical Care Time (min): 25 Additional information about critical care time: 25 Coding Level of Care Code Acute Code for Angelg Néstor
--- NOTE | 2024-03-17 17:35 | P.MISC_ITS ---
Miscellaneous Note Purpose of Documentation: Orthopedic note update: I was contacted by nursing and hospitalist staff that patient was wanting to leave AMA and asked if I would come and speak with patient. Yesterday I had spoken with patient and he understood and agreed with current plan that ultimately given his current diagnosis with a pathologic fracture of the tibia with an unknown diagnosis of what this is that he would need a biopsy and this can be treated but this should be done by an orthopedic oncologist which I talked with ortho onc at [facility] who agreed to accept the patient. Unfortunately there was full hospital and patient was on a wait list for being transferred there. In the interim he is PR and subsequently had been accepted at the [facility] in [place] they agreed to assume patient's care and finish up his treatment as unfortunately this is out of the scope of my practice. Apparently today he expressed he just wanted to go home and was planning to leave AMA which was when subsequently I had gotten a call from nursing and hospital staff. I subsequently presented with room with nurse was in with me as well as patient his as well as their family friend. Patient states he just wants to go home and get out of the hospital. I expressed I do not feel as though this would be safe given he has a pathologic fracture he currently has a splint on and in place expressed I wonder if you put any weightbearing on this that this can displace make this fracture worse possibly even become an open injury as well as the longer he waits I worry further complications could happen due to this fracture as well as it being a pathologic lesion. Once again I have reviewed with them that the PET scan showed the pathologic fracture of the tibia and then only the rib fractures other than that I did not appreciate more on radiology's appreciate any other metastatic appearing type lesions as a result this should be worked up appropriately as far as figuring out the diagnosis and then being treated and in this fashion standard of care would be that this would be performed by an orthopedic oncology from start to finish. I expressed this in detail with the patient and he already has a bed ready in [facility] at the [facility] but ultimately patient states he just wants to go home and elects to leave AMA. They are appreciative of me discussing and they understand by him leaving he does unfortunately lose his bed there at that hospital. With full understanding of this patient elects to Proceed with leaving AMA from the hospital. All questions were answered Wilfredo Byrd DO
--- NOTE | 2024-03-17 18:06 | PC.NURSE ---
Patient Leaving AMA Patient care nurse Dede CASTAÑEDA came to me and stated patient wanted to leave AMA. This nurse proceeded to patient's room and asked patient what has happened that made him want to leave. He stated he didn't want to spend all of his time at the hospital. At this time, patient is vomiting, but stated he did not want another shot . and friend at bedside. The patient stated he wanted to go home and his could drive him to [place] tomorrow to [facility]. This nurse contacted Dr. Brush. Dr. Brush came to patient's room and had a very long discussion with patient and about the risks of leaving AMA. Dr. Byrd also came to the room after Dr. Brush and proceeded to explain what is going on with the patient's leg and the risks of leaving AMA. This nurse explained that patient had been accepted to [facility]. That it would be a hospital to hospital transfer and patient would go via ambulance and could be medicated for pain during the trip. That the patient would be going directly to a room. I explained that if patient left AMA, he would lose his acceptance at the [facility] for hospital to hospital transfer. All we were waiting on was a bed to open up. This nurse also voiced her concern of patient going home, unable to bear weight on his leg and being very weak. Patient stated he understood but still wanted to sign the AMA form and just go home. Patient signed the AMA form and was put in a wheelchair and taken to the vehicle.
--- NOTE | 2024-03-17 18:27 | PC.NURSE ---
[facility] just called at [phone] for report. This nurse told them patient left AMA with and friend. Bed cancelled.
[2024-03-18 09:59] LABS: ALPHA 1 GLOBULIN 0.5 g/dL (0.2-0.3); ALPHA 2 GLOBULIN 1.2 g/dL (0.5-0.9); BETA 1 GLOBULIN 0.5 g/dL (0.4-0.6); BETA 2 GLOBULIN 0.7 g/dL (0.2-0.5); GAMMA GLOBULIN 1.5 g/dL (0.8-1.7)
[2024-03-18 14:50] LABS: Albumin,Urine Random 100 %; Alpha-1-Globulins Urine Random 0 %; Alpha-2-Globulins Urine Random 0 %; Beta-Globulin,Urine Random 0 %; Gamma Globulin,Urine Random 0 %
[2024-03-18 17:39] LABS: COMPLEMENT COMPONENT C3C 179 mg/dL (82-185); COMPLEMENT COMPONENT C4C 23 mg/dL (15-53)
[2024-03-20 13:15] LABS: COMPLEMENT, TOTAL (CH50) >60 U/mL (31-60)
[2024-03-20 16:44] LABS: DNA AB (DS) CRITHIDIA,IFA NEGATIVE (NEGATIVE)
== END 2024-03-17 18:01 | disposition left against medical advice (07) | DRG 543 ==
LOC: ER 12:45 → MEDSURG 15:25
PROVIDERS: Admitting Provider Internal Medicine; Emergency Provider Family Medicine; PCP Family Medicine; Visit Provider Internal Medicine
DX: M84.562A Pathological fracture in neoplastic disease, left tibia, initial encounter for fracture (principal); C79.51 Secondary malignant neoplasm of bone; I50.22 Chronic systolic (congestive) heart failure; I42.9 Cardiomyopathy, unspecified; C67.5 Malignant neoplasm of bladder neck; M84.564A Pathological fracture in neoplastic disease, left fibula, initial encounter for fracture; Z79.01 Long term (current) use of anticoagulants; Z86.718 Personal history of other venous thrombosis and embolism; W18.39XA Other fall on same level, initial encounter; R59.0 Localized enlarged lymph nodes; I11.0 Hypertensive heart disease with heart failure; J44.9 Chronic obstructive pulmonary disease, unspecified; Z87.891 Personal history of nicotine dependence; N40.1 Benign prostatic hyperplasia with lower urinary tract symptoms; N41.1 Chronic prostatitis; Z66 Do not resuscitate; S32.010D Wedge compression fracture of first lumbar vertebra, subsequent encounter for fracture with routine healing
CPT/HCPCS: 36415; 51702; 71101; 71250; 73562; 73590; 73630; 73701; 73720; 74176; 78306; 80048; 80053; 82310; 82570; 83036; 83605; 83735; 83880; 83970; 84145; 84155; 84156; 84165; 84166; 84550; 85025; 85651; 86038; 86140; 86160; 86162; 86235; 86255; 86376; 86431; 87040; 93971; 96365; 96372; 97110; 97166; 99285; A9561; A9577; J1170; J1644; J1885; J1940; J2270; J2405; J2543; J3370; J7050; J7512; Q9967

== ENCOUNTER → 2024-12-02 12:57 | Outpatient (BNVA) | payer OTHER, SELFPAY | PROVIDERS: PCP Family Medicine; Visit Provider Internal Medicine Cardiovascular Disease | DX: I50.22 Chronic systolic (congestive) heart failure (principal) | CPT/HCPCS: 99214 ==

== ENCOUNTER 2025-01-01 13:21 | Outpatient (CLI) | payer OTHER, SELFPAY ==
--- NOTE | 2025-01-01 14:15 | USCV_ITS ---
Finn Leigh Age: 79 Gender: M : 1945 Exam Date: 01/01/2025 14:32 Ordering Phys: Ed Tidwell MD ([email or web address]) Technologist: Jose Leger [place] [facility] [place]: chf BP: 140 / 82 HR: 77 Rhythm: Sinus Technical Quality: Adequate MEASUREMENTS (Male / Female) Normal Values 2D ECHO LV Diastolic Diameter PLAX 5.0 cm 4.2 - 5.9 / 3.9 - 5.3 cm IVS Diastolic Thickness 1.1 cm 0.6 - 1.0 / 0.6 - 0.9 cm IVS Systolic Thickness 1.4 cm LVPW Diastolic Thickness 2.1 cm 0.6 - 1.0 / 0.6 - 0.9 cm LVPW Systolic Thickness 2.1 cm LVOT Diameter 2.6 cm LV Ejection Fraction 2D Teich 52.8 % LV Ejection Fraction MOD 4C 44.8 % LV Ejection Fraction MOD 2C 40.5 % LV Ejection Fraction 2C AL 40.5 % LA Diameter 3.5 cm RA Systolic Volume 4C AL 58.1 ml RA Systolic Volume 4C MOD 51.8 ml LA Sys Volume AL 49.8 cm cubed LA Sys Volume Index AL 22.9 cm cubed/m squared Aorta at Sinotubular Diameter 2.6 cm IVC Diameter 1.7 cm M-MODE LA Ao Ratio MM 1.6 AV Cusp Separation MM 1.6 cm DOPPLER AV Peak Velocity 163.3 cm/s LVOT Peak Velocity 113.0 cm/s AV Area Cont Eq vti 4.4 cm squared AV Area Cont Eq pk 3.7 cm squared MV Peak Velocity 122.0 cm/s MV Area PHT 9.2 cm squared Mitral E to A Ratio 0.3 TV Peak Velocity 209.0 cm/s TR Peak Velocity 263.0 cm/s TR Peak Gradient 27.7 mmHg TR Mean Velocity 202.0 cm/s TR Mean Gradient 17.7 mmHg TR Velocity Time Integral 57.9 cm PV Peak Velocity 86.0 cm/s RV Ejection Time 0.2 s FINDINGS Left Ventricle Mildly increased left ventricular cavity size. Moderately decreased left ventricular systolic function. Left ventricular ejection fraction is estimated at 45 %. Global left ventricular hypokinesis. Grade I/IV diastolic dysfunction (abnormal relaxation filling pattern), normal to mildly elevated filling pressures. Right Ventricle The right ventricle is normal in size and function. Right Atrium The right atrium is normal in size. Left Atrium Mildly increased left atrial size. Mitral Valve Moderately thickened mitral valve. Moderate mitral annular calcification. No mitral valve stenosis. Trace mitral valve regurgitation. Aortic Valve Moderate aortic valve calcification. No aortic valve stenosis. No aortic valve regurgitation. Tricuspid Valve Structurally normal tricuspid valve without significant stenosis or regurgitation. Pulmonary artery systolic pressure is normal. Pulmonic Valve Structurally normal pulmonic valve without significant stenosis. There is no pulmonic regurgitation. Pericardium Normal pericardium without effusion. Aorta Normal ascending aorta dimension. IVC The inferior vena cava appears normal. CONCLUSIONS Mildly increased left ventricular cavity size. Moderately decreased left ventricular systolic function. Left ventricular ejection fraction is estimated at 45 %. Global left ventricular hypokinesis. Grade I/IV diastolic dysfunction (abnormal relaxation filling pattern), normal to mildly elevated filling pressures. Mildly increased left atrial size. Moderately thickened mitral valve. Moderate mitral annular calcification. No mitral valve stenosis. Trace mitral valve regurgitation. Moderate aortic valve calcification. No aortic valve stenosis. No aortic valve regurgitation. There is no pericardial effusion. Right atrial pressure is around 5 mm of mercury. Ed Tidwell MD (Electronically Signed) Final Date: 14 January 2025 19:36 S
== END 2025-01-01 13:22 | disposition home or self-care (01) ==
PROVIDERS: PCP Family Medicine; Visit Provider Internal Medicine Cardiovascular Disease
DX: I50.22 Chronic systolic (congestive) heart failure (principal); R06.02 Shortness of breath; R93.1 Abnormal findings on diagnostic imaging of heart and coronary circulation; I51.7 Cardiomegaly; I34.81 Nonrheumatic mitral (valve) annulus calcification; I35.8 Other nonrheumatic aortic valve disorders
CPT/HCPCS: 93306

== ENCOUNTER → 2025-01-06 13:40 | Outpatient (BNVA) | payer OTHER, MEDICARE, SELFPAY | PROVIDERS: PCP Family Medicine; Visit Provider Nurse Practitioner | DX: J98.11 Atelectasis (principal); I70.0 Atherosclerosis of aorta | CPT/HCPCS: 71046 ==